=== PATIENT | female | born 1940 | race Caucasian/White ===

== ENCOUNTER 2020-08-28 12:20 | Inpatient (IN) | payer MEDICARE ==
[2020-08-28] MEDS ORDERED: ALBUTEROL HFA INHALER INHALATION PRN (12:43)
[2020-08-28] MEDS ORDERED: ALBUTEROL HFA INHALER INHALATION STA (12:43)
--- NOTE | 2020-08-28 12:54 | ED ---
General Adult HPI - General Chief complaint: Shortness of Breath Stated complaint: covid Time Seen by Provider: 08/28/20 12:22 Source: patient, EMS, RN notes reviewed Mode of arrival: EMS Limitations: altered mental status - History of Present Illness Initial comments: Patient is a pleasant 80-year-old female presenting to the emergency department with concerns for hypoxia. Patient was from longterm with oxygen saturation in the upper 70s. Patient was recently diagnosed with COVID-19 and recently discharged from a different facility. Patient is a poor historian and offers very little history. Patient does admit to cough and shortness of breath. - Related Data Allergies Allergy/AdvReac Type Severity Reaction Status Date / Time clopidogrel [From Plavix] Allergy Unknown Verified 08/28/20 12:31 hydrocodone Allergy Unknown Verified 08/28/20 12:31 Review of Systems ROS Statement: Those systems with pertinent positive or pertinent negative responses have been documented in the HPI. ROS Other: All systems not noted in ROS Statement are negative. Constitutional: Reports: chills Eyes: Denies: eye pain ENT: Denies: ear pain Respiratory: Reports: cough, dyspnea Cardiovascular: Denies: chest pain Endocrine: Reports: fatigue Gastrointestinal: Denies: abdominal pain Genitourinary: Denies: dysuria Musculoskeletal: Denies: back pain Skin: Denies: rash Neurological: Denies: headache Past Medical History Past Medical History: Unable to Obtain, Respiratory Disorder Additional Past Medical History / Comment(s): Left wrist Fx, Covid positive, History of Any Multi-Drug Resistant Organisms: Unobtainable Past Surgical History: Unable to Obtain Past Psychological History: Anxiety, Depression Past Alcohol Use History: Unable to Obtain Past Drug Use History: Unable to Obtain General Exam Limitations: altered mental status General appearance: alert, in no apparent distress Head exam: Present: normocephalic Eye exam: Present: normal appearance ENT exam: Present: normal oropharynx Neck exam: Present: normal inspection Respiratory exam: Present: normal lung sounds bilaterally Cardiovascular Exam: Present: regular rate, normal rhythm GI/Abdominal exam: Present: soft. Absent: tenderness Extremities exam: Present: normal inspection. Absent: pedal edema, calf tenderness Neurological exam: Present: alert Psychiatric exam: Present: normal affect, normal mood Skin exam: Present: normal color Course Vital Signs 08/28/20 08/28/20 08/28/20 12:22 13:24 14:43 Temperature 97.0 F L Pulse Rate 73 98 Respiratory 18 20 18 Rate Blood Pressure 137/97 142/96 O2 Sat by Pulse 92 L 97 Oximetry EKG Findings - EKG Comments: EKG Findings:: Size tachycardia with rate of 108. KS 118. QRS 94. QT 334. QTC 447. Left axis. Incomplete right bundle-branch block. No acute ST change. Medical Decision Making - Medical Decision Making Patient reevaluated. Patient updated. Case discussed with Dr. Morataya, who will admit covering for Dr. Delgado. Recent discharge summary from [facility] shows patient was recently there with mental status changes and evaluated for that. Patient was tested for COVID-19 positive prior to admission however did not appear to have respiratory compromise during hospitalization. - Lab Data Result diagrams: 08/28/20 12:47 08/28/20 12:47 Lab Results 08/28/20 08/28/20 08/28/20 Range/Units 12:47 12:47 12:47 WBC 19.7 H (3.8-10.6) k/uL RBC 4.49 (3.80-5.40) m/uL Hgb 14.7 (11.4-16.0) gm/dL Hct 43.5 (34.0-46.0) % MCV 96.9 (80.0-100.0) fL MCH 32.7 (25.0-35.0) pg MCHC 33.7 (31.0-37.0) g/dL RDW 12.4 (11.5-15.5) % Plt Count 388 (150-450) k/uL MPV 8.6 Neutrophils % 89 % Lymphocytes % 5 % Monocytes % 4 % Eosinophils % 0 % Basophils % 1 % Neutrophils # 17.4 H (1.3-7.7) k/uL Lymphocytes # 1.0 (1.0-4.8) k/uL Monocytes # 0.8 (0-1.0) k/uL Eosinophils # 0.1 (0-0.7) k/uL Basophils # 0.1 (0-0.2) k/uL PT 10.9 (9.0-12.0) sec INR 1.0 (<1.2) APTT 19.2 L (22.0-30.0) sec D-Dimer 1.43 H (<0.60) mg/L FEU Sodium 148 H (137-145) mmol/L Potassium 4.7 (3.5-5.1) mmol/L Chloride 115 H (98-107) mmol/L Carbon Dioxide 22 (22-30) mmol/L Anion Gap 11 mmol/L BUN 49 H (7-17) mg/dL Creatinine 1.38 H (0.52-1.04) mg/dL Est GFR (CKD-EPI)AfAm 41 (>60 ml/min/1.73 sqM) Est GFR (CKD-EPI)NonAf 36 (>60 ml/min/1.73 sqM) Glucose 142 H (74-99) mg/dL Plasma Lactic Acid Michael (0.7-2.0) mmol/L Calcium 9.9 (8.4-10.2) mg/dL Magnesium 2.0 (1.6-2.3) mg/dL Total Bilirubin 0.6 (0.2-1.3) mg/dL AST 34 (14-36) U/L ALT 40 H (4-34) U/L Alkaline Phosphatase 67 (38-126) U/L Lactate Dehydrogenase 1145 H (313-618) U/L C-Reactive Protein 6.4 H (<1.0) mg/dL Total Protein 6.7 (6.3-8.2) g/dL Albumin 3.3 L (3.5-5.0) g/dL Coronavirus (PCR) (Not Detectd) 08/28/20 08/28/20 Range/Units 12:47 12:47 WBC (3.8-10.6) k/uL RBC (3.80-5.40) m/uL Hgb (11.4-16.0) gm/dL Hct (34.0-46.0) % MCV (80.0-100.0) fL MCH (25.0-35.0) pg MCHC (31.0-37.0) g/dL RDW (11.5-15.5) % Plt Count (150-450) k/uL MPV Neutrophils % % Lymphocytes % % Monocytes % % Eosinophils % % Basophils % % Neutrophils # (1.3-7.7) k/uL Lymphocytes # (1.0-4.8) k/uL Monocytes # (0-1.0) k/uL Eosinophils # (0-0.7) k/uL Basophils # (0-0.2) k/uL PT (9.0-12.0) sec INR (<1.2) APTT (22.0-30.0) sec D-Dimer (<0.60) mg/L FEU Sodium (137-145) mmol/L Potassium (3.5-5.1) mmol/L Chloride (98-107) mmol/L Carbon Dioxide (22-30) mmol/L Anion Gap mmol/L BUN (7-17) mg/dL Creatinine (0.52-1.04) mg/dL Est GFR (CKD-EPI)AfAm (>60 ml/min/1.73 sqM) Est GFR (CKD-EPI)NonAf (>60 ml/min/1.73 sqM) Glucose (74-99) mg/dL Plasma Lactic Acid Michael 3.3 H* (0.7-2.0) mmol/L Calcium (8.4-10.2) mg/dL Magnesium (1.6-2.3) mg/dL Total Bilirubin (0.2-1.3) mg/dL AST (14-36) U/L ALT (4-34) U/L Alkaline Phosphatase (38-126) U/L Lactate Dehydrogenase (313-618) U/L C-Reactive Protein (<1.0) mg/dL Total Protein (6.3-8.2) g/dL Albumin (3.5-5.0) g/dL Coronavirus (PCR) Detected A (Not Detectd) - Radiology Data Radiology results: report reviewed (Computed tomography scan negative for pulmonary embolism. There is evidence of fibrosis and interstitial changes diffusely), image reviewed (Chest x-ray shows diffuse interstitial changes) Disposition Clinical Impression: COVID-19, Pneumonia Disposition: ADMITTED IP TO THIS HOSP Condition: Serious Is patient prescribed a controlled substance at d/c from ED?: No Referrals: Lake Delgado MD [Primary Care Provider] - 1-2 days Decision Time: 14:48
[2020-08-28 13:06] LABS: Basophils # (A) 0.1 k/uL (0-0.2); Basophils % (A) 1 %; Eosinophils # (A) 0.1 k/uL (0-0.7); Eosinophils % (A) 0 %; HCT 43.5 % (34.0-46.0); HGB 14.7 gm/dL (11.4-16.0); Lymphocytes % (A) 5 %; MCH 32.7 pg (25.0-35.0); MCHC 33.7 g/dL (31.0-37.0); MCV 96.9 fL (80.0-100.0); Mean Platelet Volume 8.6; Monocytes # (A) 0.8 k/uL (0-1.0); Monocytes % (A) 4 %; Neutrophils # (A) 17.4 k/uL (1.3-7.7); Neutrophils % (A) 89 %; Platelet Count 388 k/uL (150-450); RBC 4.49 m/uL (3.80-5.40); RDW 12.4 % (11.5-15.5); WBC 19.7 k/uL (3.8-10.6)
[2020-08-28 13:20] LABS: Albumin 3.3 g/dL (3.5-5.0); C Reactive Protein 6.4 mg/dL (<1.0); Calcium 9.9 mg/dL (8.4-10.2); Potassium 4.7 mmol/L (3.5-5.1); Total Bilirubin 0.6 mg/dL (0.2-1.3); Total Protein 6.7 g/dL (6.3-8.2)
[2020-08-28 13:31] LABS: Prothrombin Time 10.9 sec (9.0-12.0)
--- NOTE | 2020-08-28 13:31 | XR ---
EXAMINATION TYPE: XR chest 1V portable DATE OF EXAM: 08/28/2020 COMPARISON: NONE HISTORY: Suspected Covid pneumonia TECHNIQUE: Single frontal view of the chest is obtained. FINDINGS: There is a lead over the spinal canal region which may be related to cord stimulation. Pos top changes are noted to the right humerus. Bilateral airspace disease is present. There is no eviden t pneumothorax or pleural effusion. Cardiac style silhouette is within normal limits. Aorta is dense. IMPRESSION: Correlate for possible Covid pneumonia.
[2020-08-28 13:34] LABS: Partial Thromboplastin Time 19.2 sec (22.0-30.0)
[2020-08-28 13:37] LABS: D-Dimer 1.43 mg/L FEU (<0.60)
[2020-08-28] MEDS ORDERED: SODIUM CHLORIDE 0.9% 1,000 ML IV STA (13:44)
--- NOTE | 2020-08-28 14:43 | CT ---
EXAMINATION TYPE: CT angio chest DATE OF EXAM: 08/28/2020 COMPARISON: None HISTORY: SOB, +covid CT DLP: 306.5 mGycm Automated exposure control for dose reduction was used. CONTRAST: Performed with IV Contrast, patient injected with 95cc mL of Isovue 370. There are 3-D post processed images. There is extensive groundglass patchy interstitial infiltrate in both lungs. Heart size is normal. Th ere is no pericardial effusion. There is some reticular interstitial density also in both lungs consi stent with pre-existing pulmonary fibrosis. There is no mediastinal adenopathy. There are no hilar ma sses. Thoracic aorta is atheromatous. I see no evidence of filling defect in the pulmonary arteries. There is no aortic aneurysm or dissection. The ascending aorta measures 3.5 cm. Thoracic spine is intact. There is no compression fracture. Sternum is intact. The ribs appear intact . IMPRESSION: No evidence of pulmonary embolism. Extensive pulmonary interstitial infiltrates consistent with pneum onia and pulmonary fibrosis. Normal heart.
[2020-08-28] MEDS ORDERED: AZITHROMYCIN 500 MG in SODIUM CHLORIDE 0.9% 250 ML IVPB STA (14:49)
[2020-08-28] MEDS ORDERED: PNEUMONIA PROTOCOL UTILIZED 1 EACH MISC PO PRN (14:49)
[2020-08-28] MEDS ORDERED: PIPERACILLIN-TAZOBACTAM 3.375 GM in SODIUM CHLORIDE 0.9% 100 ML IVPB STA (14:49)
[2020-08-28] MEDS ORDERED: IPRATROPIUM-ALBUTEROL 3 ML NEB INHALATION PRN (14:49)
[2020-08-28] MEDS: CHOLECALCIFEROL 25 MCG (1000 IU) TABLET PO SCH (17:36)
[2020-08-28] MEDS: ZINC SULFATE 220 MG CAP PO SCH (17:36)
[2020-08-28] MEDS: DEXAMETHASONE SOD PHOSPHATE 10 MG/ML 1 ML VIAL IV SCH (17:36)
[2020-08-28] MEDS: ENOXAPARIN 30 MG/0.3 ML SYRINGE SQ SCH (17:36)
[2020-08-28 19:33] LABS: Ferritin 882.4 ng/mL (10.0-291.0)
[2020-08-28] MEDS ORDERED: ALBUTEROL HFA INHALER INHALATION SCH (20:00)
--- NOTE | 2020-08-28 22:52 | HP ---
HISTORY AND PHYSICAL DATE OF SERVICE: 08/28/2020. CHIEF COMPLAINT: Shortness of breath and hypoxia. HISTORY OF PRESENT ILLNESS: This 80-year-old woman with a past medical history of multiple medical problems including GERD, hypertension, hyperlipidemia, anxiety, depression, being followed by Dr. Yepez in [facility] in the outpatient setting was apparently had a recent left wrist fracture. The patient was hospitalized recently and the patient was found to have Covid positive on 08/19/2020. The patient presented with shortness of breath, increased hypoxia with pulse ox 70 and the patient taken to [facility], admitted for further evaluation and treatment. In the ER, the patient had elevated D- dimer and CT angio showed no evidence of pulmonary embolism, but bilateral extensive parenchymal involvement, very typical of Covid 19. Sodium is 128 and BUN was 130. Lactic acid also elevated. Albumin is also 3.3. There is no history of fever, rigors or chills. No history of headache, loss of consciousness, seizures at this time. PAST MEDICAL HISTORY: GERD, hypertension, hyperlipidemia, left wrist fracture. MEDICATIONS: Medications prior to admission, home medications are: Ultram, Seroquel, doxycycline, dexamethasone, Protonix, folic acid, vitamin B12. ALLERGIES: PLAVIX AND HYDROCODONE. FAMILY HISTORY: Family history unable to obtain. SOCIAL HISTORY: Cannot be obtained. REVIEW OF SYSTEMS: Could not be taken, the patient is confused. PHYSICAL EXAMINATION: Pulse is 101. Blood pressure 120/79, respirations 18, temperature 97.2, pulse ox 98% on 6 L. HEENT: Conjunctivae normal. Oral mucosa moist. NECK is no jugular venous distention. No carotid bruit. CARDIOVASCULAR SYSTEM: S1, S2 muffled. RESPIRATION: Breath sounds diminished in the bases. A few scattered rhonchi. ABDOMEN: Soft, nontender. No mass. NERVOUS SYSTEM: Higher functions as mentioned. Moves all four limbs. No focal motor or sensory deficits. LYMPHATICS: No lymph nodes palpable in the neck, axillae or groin. SKIN: No ulcers, rashes and no bleeding. JOINTS: No active deforming arthropathy. LAB STUDIES: WBC 19.7. D-dimer is 1.4. Sodium 148, creatinine is 1.38. ASSESSMENT: 1. Acute COVID-19 infection with acute COVID-19 bilateral interstitial pneumonia with acute hypoxic respiratory failure. 2. Change in mental status, acute on chronic metabolic encephalopathy. 3. Hyponatremia. 4. History of recent left wrist fracture. 5. Increased creatinine with possibly acute kidney failure, acute tubular necrosis. 6. Possible sepsis, present on admission, with elevated plasma lactic acid. 7. Elevated LDH. 8. Elevated inflammatory markers of Covid-19. 9. Elevated D-dimer without any evidence of pulmonary embolism. 10.Increased WBC. 11.Gastroesophageal reflux disease. 12.Hypertension. 13.Hyperlipidemia. 14.History of anxiety, depression. RECOMMENDATIONS AND DISCUSSION: In this 80-year-old woman who presented with multiple complex medical issues, we will monitor the patient closely, continue the current medications, management and symptomatic treatment. I recommend bronchodilators and as well as initiate Lovenox, dexamethasone, zinc, usual medications, broad-spectrum empiric antibiotics. Consult with Orthopedic surgery and Dr. Sapp. Prognosis guarded because of multiple complex medical issues. Further recommendations to follow. Resume the home medications. A copy of this dictation being forwarded to Dr. Yepez is the primary physician. MMODL / IJN: [id number] /
[2020-08-28] MEDS: traMADol 50 MG TAB PO PRN (23:04)
[2020-08-28] MEDS: ASCORBIC ACID 500 MG TAB PO SCH (23:04)
[2020-08-28] MEDS: PIPERACILLIN-TAZOBACTAM 3.375 GM in SODIUM CHLORIDE 0.9% 100 ML IVPB SCH (23:05)
[2020-08-28] MEDS: QUEtiapine 25 MG TAB PO SCH (23:06)
[2020-08-29 05:27] LABS: Appearance,Urine Turbid (Clear); Bilirubin,Urine Negative (Negative); Blood,Urine Trace (Negative); Color,Urine Yellow; Glucose,Urine (UA) Negative (Negative); Ketones,Urine Negative (Negative); Leukocyte Esterase,Urine Negative (Negative); Mucus,Urine Rare /hpf; Nitrite,Urine Negative (Negative); PH, Urine 5.5 (5.0-8.0); Protein,Urine Trace (Negative); RBC,Urine 11 /hpf (0-5); Triple Phosphate Crystal,Urine Many /hpf; Urobilinogen,Urine <2.0 mg/dL (<2.0); WBC,Urine 2 /hpf (0-5)
[2020-08-29 06:22] LABS: Specific Gravity,Urine >1.050 (1.001-1.035)
[2020-08-29] MEDS: PIPERACILLIN-TAZOBACTAM 3.375 GM in SODIUM CHLORIDE 0.9% 100 ML IVPB SCH ×2 (06:22→14:05)
[2020-08-29] MEDS: ZINC SULFATE 220 MG CAP PO SCH (07:47)
[2020-08-29] MEDS: ASCORBIC ACID 500 MG TAB PO SCH (07:47)
[2020-08-29] MEDS: CHOLECALCIFEROL 25 MCG (1000 IU) TABLET PO SCH (07:47)
--- NOTE | 2020-08-29 07:47 | XR ---
EXAMINATION TYPE: XR chest 1V DATE OF EXAM: 08/29/2020 COMPARISON: Prior chest x-ray 08/28/2020 HISTORY: Pneumonia TECHNIQUE: Single frontal view of the chest is obtained. FINDINGS: Bilateral airspace disease is again noted. Instrumentation is stable. Aorta is dense. Card iac mediastinal silhouette is unchanged. There is no evident pneumothorax or pleural effusion. IMPRESSION: Findings consistent with patient's history of pneumonia.
[2020-08-29] MEDS: CYANOCOBALAMIN 500 MCG TAB PO SCH (07:48)
[2020-08-29] MEDS: DEXAMETHASONE SOD PHOSPHATE 10 MG/ML 1 ML VIAL IV SCH (07:48)
[2020-08-29] MEDS: FOLIC ACID 1 MG TAB PO SCH (07:48)
[2020-08-29] MEDS: PANTOPRAZOLE 40 MG TABLET PO SCH (07:48)
[2020-08-29] MEDS: ENOXAPARIN 30 MG/0.3 ML SYRINGE SQ SCH (07:48)
[2020-08-29] MEDS: ALBUTEROL HFA INHALER INHALATION SCH ×3 (08:32→20:25)
[2020-08-29 10:10] LABS: Basophils # (A) 0.08 X 10*3/uL (0.00-0.10); Basophils % (A) 0.7 %; Eosinophils # (A) 0 X 10*3/uL (0.04-0.35); Eosinophils % (A) 0 %; HCT 40.8 % (37.2-46.3); HGB 12.8 g/dL (12.0-15.0); Lymphocytes # (A) 1.08 X 10*3/uL (0.90-5.00); Lymphocytes % (A) 9.7 %; MCH 31.7 pg (27.0-32.0); MCHC 31.4 g/dL (32.0-37.0); Mean Platelet Volume 11.5 fL (9.5-12.2); Monocytes # (A) 0.52 X 10*3/uL (0.20-1.00); Monocytes % (A) 4.7 %; Neutrophils # (A) 8.91 X 10*3/uL (1.80-7.70); Neutrophils % (A) 80.1 %; Platelet Count 292 X 10*3/uL (140-440); RBC 4.04 X 10*6/uL (4.10-5.20); RDW 13.5 % (11.5-14.5); WBC 11.12 X 10*3/uL (4.50-10.00)
[2020-08-29 11:28] LABS: African American GFR (CKD) 40.7 (60.0-200.0); Anion Gap 9.1 mmol/L (4.00-12.00); Carbon Dioxide 18.9 mmol/L (21.6-31.8); Non-African American GFR(CKD) 35.1 (60.0-200.0); Potassium 4.9 mmol/L (3.5-5.5)
--- NOTE | 2020-08-29 11:33 | P.CNPUL ---
History of Present Illness Consult date: 08/29/20 Requesting physician: Tess Morataya Reason for consult: hypoxemia Chief complaint: Altered mental status, hypoxemia History of present illness: This is a 80-year-old female patient who recently had two hospitalizations initially at [facility] and was positive for CoVID 19 08/19/2020. She is subsequently discharged home and sustained a fall and was taken to [facility]. She did have a left wrist fracture. She subsequently was discharged from there to [facility] for rehabilitation. She was brought in here to the emergency room yesterday with altered mental status and hypoxemia with oxygen saturations in the 70s. is a very poor historian no information is able to be obtained from her. CT angiogram revealed no evidence of pulmonary embolism. There is extensive pulmonary interstitial infiltrates consider with pneumonia, pulmonary fibrosis. She does have a history of being a heavy smoker and prior to her initial hospitalization at [facility] she was alert and oriented 3 according to family members per nursing staff. Today's chest x- ray shows bilateral airspace disease. Urine culture pending. White count 11.1. Hemoglobin 12.8. D-dimer 1.43. Sodium 148. Potassium 4.7. Creatinine 1.38. Initial lactic acid 3.1 and currently 1.4. Ferritin 82. LDH 1145. C-reactive protein 6.4. Pro-calcitonin 0.20. Jones virus by PCR detected. She was initially requiring nonrebreather mask but maintaining O2 saturations in the 90s. She's currently on 4 L with O2 saturation of 99%. She is resting in bed. She is unable to answer any questions. She is arousable but drowsy and her speech is garbled. She's been initiated on Zosyn and azithromycin. Lovenox for DVT prophylaxis. Decadron and vitamin supplements. Current fluids at 20 ML's per hour. Review of Systems ROS unobtainable: due to mental status Past Medical History Past Medical History: Unable to Obtain, GERD/Reflux, Hyperlipidemia, Hypertension, Respiratory Disorder Additional Past Medical History / Comment(s): Left wrist Fx, Covid positive, History of Any Multi-Drug Resistant Organisms: Unobtainable Past Surgical History: Unable to Obtain Past Psychological History: Anxiety, Depression Smoking Status: Unknown if ever smoked Past Alcohol Use History: Unable to Obtain Past Drug Use History: Unable to Obtain Medications and Allergies Home Medications Medication Instructions Recorded Confirmed Type Cyanocobalamin (Vitamin B-12) 1,000 mcg PO DAILY 08/28/20 08/28/20 History [Vitamin B-12] Doxycycline Hyclate [Vibramycin] 100 mg PO BID 08/28/20 08/28/20 History Folic Acid 1 mg PO DAILY 08/28/20 08/28/20 History Pantoprazole Sodium [Protonix] 40 mg PO DAILY 08/28/20 08/28/20 History QUEtiapine FUMARATE 25 mg PO HS 08/28/20 08/28/20 History dexAMETHasone [Dexamethasone] 6 mg PO DAILY 08/28/20 08/28/20 History traMADol HCL 50 mg PO Q8H PRN 08/28/20 08/28/20 History Allergies Allergy/AdvReac Type Severity Reaction Status Date / Time clopidogrel [From Plavix] Allergy Unknown Verified 08/28/20 15:53 hydrocodone Allergy Unknown Verified 08/28/20 15:53 Physical Exam Vitals: Vital Signs Temp Pulse Pulse Resp BP BP Pulse Ox 08/29/20 08:33 99 08/29/20 07:00 97.3 F L 78 16 122/80 99 08/29/20 01:55 96.5 F L 79 15 112/70 97 08/28/20 20:14 95 08/28/20 20:00 18 08/28/20 19:29 97.4 F L 91 16 142/83 95 08/28/20 17:37 97.5 F L 97 14 124/70 94 L 08/28/20 16:26 93 18 141/84 93 L 08/28/20 15:00 101 H 18 129/79 90 L 08/28/20 14:43 98 18 142/96 97 08/28/20 13:24 20 08/28/20 12:22 97.0 F L 73 18 137/97 92 L Intake and Output 08/28/20 08/29/20 08/29/20 22:59 06:59 14:59 Intake Total 990 Output Total 401 401 Balance 589 -401 Intake: Intake, IV Titration 990 Amount Piperacillin-Tazobactam 3 200 .375 gm In Sodium Chloride 0.9% 100 ml @ 200 mls/hr IVPB ONCE STA Rx#:[id number] Sodium Chloride 0.9% 1, 790 000 ml @ 75 mls/hr IV . [id number] STA Rx#:[id number] Output: Urine 400 400 Stool 1 1 Other: Voiding Method Indwelling Catheter # Bowel Movements 1 Weight 49.895 kg GENERAL EXAM: Arousable, frail, lethargic 80-year-old female, on 4 L nasal cannula, appears comfortable in no apparent distress. HEAD: Normocephalic. EYES: Normal reaction of pupils, equal size. NOSE: Clear with pink turbinates. THROAT: No erythema or exudates. NECK: No masses, no JVD. CHEST: No chest wall deformity. LUNGS: Equal air entry with crackles in the bilateral posterior bases. CVS: S1 and S2 normal with no audible murmur, regular rhythm. ABDOMEN: No hepatosplenomegaly, normal bowel sounds, no guarding or rigidity. SPINE: No scoliosis or deformity SKIN: No rashes CENTRAL NERVOUS SYSTEM: No focal deficits, tone is normal in all 4 extremities. EXTREMITIES: There is no peripheral edema. No clubbing, no cyanosis. Peripheral pulses are intact. Results - Laboratory Findings CBC and BMP: 08/29/20 05:28 08/28/20 12:47 PT/INR, D-dimer PT 10.9 sec (9.0-12.0) 08/28/20 12:47 INR 1.0 (<1.2) 08/28/20 12:47 D-Dimer 1.43 mg/L FEU (<0.60) H 08/28/20 12:47 Abnormal lab findings: Abnormal Labs 08/28/20 08/28/20 08/28/20 12:47 12:47 12:47 WBC 19.7 H RBC MCV MCHC Immature Gran # Neutrophils # 17.4 H Eosinophils # APTT 19.2 L D-Dimer 1.43 H Sodium 148 H Chloride 115 H BUN 49 H Creatinine 1.38 H Glucose 142 H Plasma Lactic Acid Michael Ferritin 882.4 H ALT 40 H Lactate Dehydrogenase 1145 H C-Reactive Protein 6.4 H Albumin 3.3 L Procalcitonin Urine Appearance Ur Specific Belcher Urine Protein Urine Blood Urine RBC Triple Phos Crystals Urine Mucus Coronavirus (PCR) 08/28/20 08/28/20 08/28/20 12:47 12:47 12:47 WBC RBC MCV MCHC Immature Gran # Neutrophils # Eosinophils # APTT D-Dimer Sodium Chloride BUN Creatinine Glucose Plasma Lactic Acid Michael 3.3 H* Ferritin ALT Lactate Dehydrogenase C-Reactive Protein Albumin Procalcitonin 0.20 H Urine Appearance Ur Specific Belcher Urine Protein Urine Blood Urine RBC Triple Phos Crystals Urine Mucus Coronavirus (PCR) Detected A 08/28/20 08/28/20 08/29/20 16:32 20:03 04:30 WBC RBC MCV MCHC Immature Gran # Neutrophils # Eosinophils # APTT D-Dimer Sodium Chloride BUN Creatinine Glucose Plasma Lactic Acid Michael 2.2 H* 3.1 H* Ferritin ALT Lactate Dehydrogenase C-Reactive Protein Albumin Procalcitonin Urine Appearance Turbid H Ur Specific Belcher >1.050 H Urine Protein Trace H Urine Blood Trace H Urine RBC 11 H Triple Phos Crystals Many H Urine Mucus Rare H Coronavirus (PCR) 08/29/20 05:28 WBC 11.12 H RBC 4.04 L MCV 101.0 H MCHC 31.4 L Immature Gran # 0.53 H Neutrophils # 8.91 H Eosinophils # 0 L APTT D-Dimer Sodium Chloride BUN Creatinine Glucose Plasma Lactic Acid Michael Ferritin ALT Lactate Dehydrogenase C-Reactive Protein Albumin Procalcitonin Urine Appearance Ur Specific Belcher Urine Protein Urine Blood Urine RBC Triple Phos Crystals Urine Mucus Coronavirus (PCR) - Diagnostic Findings Chest x-ray: image reviewed CT scan - chest: image reviewed Assessment and Plan Assessment: 1 Acute hypoxemic respiratory failure secondary to COVID-19 pneumonia. Unsure of the date the initial diagnosis. 2 Recent admissions to both [facility] and [facility], discharged to [facility] 3 Recent fall with fracture of the left arm/wrist 4 Altered mental status 5 Acute renal failure 6 Elevated inflammatory markers secondary to COVID-19 infection 7 Possible urinary tract infection, culture pending 8 Lactic acidosis, improved Plan: The patient was seen and evaluated by Dr. Sapp Chest x-ray, CAT scan, labs reviewed Increase fluids 0.9 normal saline at 100 ML's per hour Recheck pro-calcitonin Continue antibiotics for now Continue Lovenox, Decadron, vitamin supplements Titrate the FiO2 as tolerated DO NOT RESUSCITATE/DO NOT INTUBATE CODE STATUS Prognosis is guarded We will continue to follow and make further recommendations based on her clinical status I, the cosigning physician, performed a history & physical examination of the patient. Lungs sounds with crackles in the bilateral posterior bases. Maintaining good O2 saturations in the 90s on 4 L/m per nasal cannula. I discussed the assessment and plan of care with my nurse practitioner, Genie Macias. I attest to the above consultation as dictated by her. Time with Patient: Greater than 30
[2020-08-29] MEDS: AZITHROMYCIN 500 MG in SODIUM CHLORIDE 0.9% 250 ML IVPB SCH (11:57)
[2020-08-29] MEDS ORDERED: BENZOCAINE SPRAY 1 CAN MUCOUS MEM PRN (15:00)
[2020-08-29] MEDS: DEXTROSE 5% IN WATER 1,000 ML IV SCH (15:30)
--- NOTE | 2020-08-29 15:39 | XR ---
EXAMINATION TYPE: XR wrist complete LT DATE OF EXAM: 08/29/2020 COMPARISON: NONE HISTORY: Wrist fracture. Pain. TECHNIQUE: 3 views FINDINGS: Exam performed through the cast. There is impacted transverse fracture distal radial metaph ysis. There is slight anterior angulation at the fracture site. There is also slightly angulated dist al ulna fracture. The carpal bones appear intact. There is osteopenia. IMPRESSION: Slightly angulated fractures of the radius and ulna. Detail limited by the cast.
--- NOTE | 2020-08-29 17:37 | PN ---
PROGRESS NOTE DATE OF SERVICE: 08/29/2020 This 80-year-old woman who was admitted with acute Covid 19 infection, bilateral pneumonia also had significant hypoxia. The patient pneumonia. The patient started on broad-spectrum IV antibiotics. Patient also had change in mental status. The patient also had dehydration, hyponatremia, also. PAST MEDICAL HISTORY: Reviewed. REVIEW OF SYSTEMS: Could not be taken. The patient is confused. CURRENT MEDICATIONS: Reviewed and include: Ventolin, vitamin C, Zithromax, Dexamethasone. Doses reviewed. PHYSICAL EXAM: Patient is arousable, stuporous. Pulse 78, blood pressure 120/80, respiratory rate 16, temperature 97.3. Pulse ox 99% on 15 L nasal cannula. HEENT: Conjunctivae normal. NECK: No JVD. CARDIOVASCULAR: S1, S2 muffled. RESPIRATORY: Breath sounds diminished in the bases. A few scattered rhonchi and crackles. ABDOMEN: Soft, nontender. LEGS are no edema. No swelling. NERVOUS SYSTEM: No focal deficits. LABS: At this time show: WBC 7, hemoglobin 12.3, sodium 151 and potassium 4.9. ASSESSMENT: 1. Acute COVID-19 infection with acute Covid 19 bilateral interstitial pneumonia with acute hypoxic respiratory failure. 2. Change in mental status, acute on chronic metabolic encephalopathy. 3. Hypernatremia. 4. History of recent left wrist fracture. 5. Increased creatinine with possible acute kidney injury acute tubular necrosis with dehydration. 6. Possible sepsis, present on admission with elevated plasma lactic acid as well as possible super added bacterial pneumonia. 7. Elevated LDH. 8. Elevated inflammatory markers of Covid 19. 9. Elevated D-dimer without any evidence of acute pulmonary embolism. 10.Increased WBC. 11.History of gastroesophageal reflux disease. 12.Hypertension. 13.Hyperlipidemia. 14.History of anxiety, depression. 15.NO CODE, NO CPR, NO VENT. RECOMMENDATIONS AND DISCUSSION: Continue current medications, management and symptomatic treatment. Continue with broad-spectrum IV antibiotics. I would also recommend venous ultrasound of the legs. Continue the rest of medications. DVT prophylaxis. Closely follow with Dr. Sapp. Prognosis extremely guarded because of multiple complex medical issues. Further recommendations to follow. Discussed with multiple members of the family. MMODL / IJN: [id number] / [facility] SYSTEMVamsi
--- NOTE | 2020-08-29 19:55 | P.CNOR ---
History of Present Illness - [facility] Consult date: 08/29/20 Consult reason: fracture History of present illness: This is an 80-year-old female who presented complaining of syncope and fall she recently was seen an Ralph Woodward for her left wrist which was reduced and rogelio arently has a wrist fracture shes currently in a splint. She is unreliable for history as she is unable to provide this however she is following commands at this time. She denies any pain. Review of Systems 14 point ROS completed and as stated in HPI. All other systems reviewed negative. Difficult to obtain ROS due to pt mental status. Constitutional: Reports as per HPI Past Medical History Past Medical History: Unable to Obtain, GERD/Reflux, Hyperlipidemia, Hypertension, Respiratory Disorder Additional Past Medical History / Comment(s): Left wrist Fx, Covid positive, History of Any Multi-Drug Resistant Organisms: Unobtainable Past Surgical History: Unable to Obtain Past Psychological History: Anxiety, Depression Smoking Status: Unknown if ever smoked Past Alcohol Use History: Unable to Obtain Past Drug Use History: Unable to Obtain Medications and Allergies Home Medications Medication Instructions Recorded Confirmed Type Cyanocobalamin (Vitamin B-12) 1,000 mcg PO DAILY 08/28/20 08/28/20 History [Vitamin B-12] Doxycycline Hyclate [Vibramycin] 100 mg PO BID 08/28/20 08/28/20 History Folic Acid 1 mg PO DAILY 08/28/20 08/28/20 History Pantoprazole Sodium [Protonix] 40 mg PO DAILY 08/28/20 08/28/20 History QUEtiapine FUMARATE 25 mg PO HS 08/28/20 08/28/20 History dexAMETHasone [Dexamethasone] 6 mg PO DAILY 08/28/20 08/28/20 History traMADol HCL 50 mg PO Q8H PRN 08/28/20 08/28/20 History Allergies Allergy/AdvReac Type Severity Reaction Status Date / Time clopidogrel [From Plavix] Allergy Unknown Verified 08/28/20 15:53 hydrocodone Allergy Unknown Verified 08/28/20 15:53 Physical Examination Osteopathic Statement: *. No significant issues noted on an osteopathic structural exam other than those noted in the History and Physical/Consult. AOX1-2, NAD. Nods head yes and says no. Answers questions appropriately. CTAB RRR LUE: Splint in place, molded. Brusing about the hand on the L. Minimal swelling noted. Brusing noted on all 4 ext as well as skin tears and minor abrasions. Able to wiggle all fingers w/o any issues. SILT C5-T1 Cap refill brisk <2 sec all fingers Compartments soft +motor med/rad/ulnar nerves + motor b/l LE all major muscle groups Remainding joints and extremetiesl Upper and lower w/o pain on passive ROM or palpation at this time. Results Left wrist films obtained show a displaced, radially deviated, dorsally displaced comminuted distal radius and ulnar fracture. The fracture is in a splint, but is malreduced at this time. There are no other bony abnormalities visualized at this time. - Labs Labs: Abnormal Lab Results - Last 24 Hours (Table) 08/28/20 08/28/20 08/28/20 Range/Units 12:47 12:47 12:47 WBC (4.50-10.00) X 10*3/uL RBC (4.10-5.20) X 10*6/uL MCV (80.0-97.0) fL MCHC (32.0-37.0) g/dL Immature Gran # (0.00-0.04) X 10*3/uL Neutrophils # (1.80-7.70) X 10*3/uL Eosinophils # (0.04-0.35) X 10*3/uL APTT 19.2 L (22.0-30.0) sec D-Dimer 1.43 H (<0.60) mg/L FEU Sodium 148 H (137-145) mmol/L Chloride 115 H (98-107) mmol/L Carbon Dioxide (21.6-31.8) mmol/L BUN 49 H (7-17) mg/dL Creatinine 1.38 H (0.52-1.04) mg/dL Est GFR (CKD-EPI)AfAm (60.0-200.0) Est GFR (CKD-EPI)NonAf (60.0-200.0) BUN/Creatinine Ratio (12.00-20.00) Ratio Glucose 142 H (74-99) mg/dL Plasma Lactic Acid Michael 3.3 H* (0.7-2.0) mmol/L Ferritin 882.4 H (10.0-291.0) ng/mL ALT 40 H (4-34) U/L Lactate Dehydrogenase 1145 H (313-618) U/L C-Reactive Protein 6.4 H (<1.0) mg/dL Albumin 3.3 L (3.5-5.0) g/dL Procalcitonin (0.02-0.09) ng/mL Urine Appearance (Clear) Ur Specific [place] (1.001-1.035) Urine Protein (Negative) Urine Blood (Negative) Urine RBC (0-5) /hpf Triple Phos Crystals (None) /hpf Urine Mucus (None) /hpf 08/28/20 08/28/20 08/28/20 Range/Units 12:47 16:32 20:03 WBC (4.50-10.00) X 10*3/uL RBC (4.10-5.20) X 10*6/uL MCV (80.0-97.0) fL MCHC (32.0-37.0) g/dL Immature Gran # (0.00-0.04) X 10*3/uL Neutrophils # (1.80-7.70) X 10*3/uL Eosinophils # (0.04-0.35) X 10*3/uL APTT (22.0-30.0) sec D-Dimer (<0.60) mg/L FEU Sodium (137-145) mmol/L Chloride (98-107) mmol/L Carbon Dioxide (21.6-31.8) mmol/L BUN (7-17) mg/dL Creatinine (0.52-1.04) mg/dL Est GFR (CKD-EPI)AfAm (60.0-200.0) Est GFR (CKD-EPI)NonAf (60.0-200.0) BUN/Creatinine Ratio (12.00-20.00) Ratio Glucose (74-99) mg/dL Plasma Lactic Acid Michael 2.2 H* 3.1 H* (0.7-2.0) mmol/L Ferritin (10.0-291.0) ng/mL ALT (4-34) U/L Lactate Dehydrogenase (313-618) U/L C-Reactive Protein (<1.0) mg/dL Albumin (3.5-5.0) g/dL Procalcitonin 0.20 H (0.02-0.09) ng/mL Urine Appearance (Clear) Ur Specific [place] (1.001-1.035) Urine Protein (Negative) Urine Blood (Negative) Urine RBC (0-5) /hpf Triple Phos Crystals (None) /hpf Urine Mucus (None) /hpf 08/29/20 08/29/20 08/29/20 Range/Units 04:30 05:28 05:28 WBC 11.12 H (4.50-10.00) X 10*3/uL RBC 4.04 L (4.10-5.20) X 10*6/uL MCV 101.0 H (80.0-97.0) fL MCHC 31.4 L (32.0-37.0) g/dL Immature Gran # 0.53 H (0.00-0.04) X 10*3/uL Neutrophils # 8.91 H (1.80-7.70) X 10*3/uL Eosinophils # 0 L (0.04-0.35) X 10*3/uL APTT (22.0-30.0) sec D-Dimer (<0.60) mg/L FEU Sodium 151 H (137-145) mmol/L Chloride 123 H (98-107) mmol/L Carbon Dioxide 18.9 L (21.6-31.8) mmol/L BUN 49.0 H (7-17) mg/dL Creatinine (0.52-1.04) mg/dL Est GFR (CKD-EPI)AfAm 40.7 L (60.0-200.0) Est GFR (CKD-EPI)NonAf 35.1 L (60.0-200.0) BUN/Creatinine Ratio 35.00 H (12.00-20.00) Ratio Glucose 139 H (74-99) mg/dL Plasma Lactic Acid Michael (0.7-2.0) mmol/L Ferritin (10.0-291.0) ng/mL ALT (4-34) U/L Lactate Dehydrogenase (313-618) U/L C-Reactive Protein (<1.0) mg/dL Albumin (3.5-5.0) g/dL Procalcitonin (0.02-0.09) ng/mL Urine Appearance Turbid H (Clear) Ur Specific [place] >1.050 H (1.001-1.035) Urine Protein Trace H (Negative) Urine Blood Trace H (Negative) Urine RBC 11 H (0-5) /hpf Triple Phos Crystals Many H (None) /hpf Urine Mucus Rare H (None) /hpf Microbiology - Last 24 Hours (Table) 08/29/20 04:30 Urine Culture - Preliminary Urine,Catheterized H & H 08/28/20 08/29/20 Range/Units 12:47 05:28 Hgb 14.7 12.8 (11.4-16.0) gm/dL Hct 43.5 40.8 (34.0-46.0) % Coagulation 08/28/20 Range/Units 12:47 INR 1.0 (<1.2) Result Diagrams: 08/29/20 05:28 08/29/20 05:28 Assessment and Plan Assessment: 80 yo female with complex medical history with displaced, comminuted, angulated distal radicus and ulna fracture on the L s/p multiple FFS. Plan: Attempt at family discussion. This fracture is surgical due to the continued displacement and angulation, however the patient is not reliable for history, has had multiple falls, lives in a care facility and has multiple medical comorbidities. Non surgical options may be a better route for her unless her mental status clears up and she is able to discuss surgical intervention or we can talk with family and see what their wishes are for her. While non operative may be ideal for her, the wrist is in unacceptable and non reduced alignment and she may benefit from a closed reduction and casting. We will discuss all options with the family or DPOA as soon as possible. In the meantime, maintain splint CDI, sling PRN, Ice and elevate for pain and swelling control. Medical management at this time.
[2020-08-30] MEDS: DEXTROSE 5% IN WATER 1,000 ML IV SCH ×3 (05:23→22:31)
[2020-08-30] MEDS: PIPERACILLIN-TAZOBACTAM 3.375 GM in SODIUM CHLORIDE 0.9% 100 ML IVPB SCH ×4 (05:32→19:44)
[2020-08-30 06:20] LABS: Basophils # (A) 0.1 k/uL (0-0.2); Basophils % (A) 0 %; Eosinophils # (A) 0.2 k/uL (0-0.7); Eosinophils % (A) 1 %; HCT 42.6 % (34.0-46.0); HGB 14.3 gm/dL (11.4-16.0); Lymphocytes # (A) 1.4 k/uL (1.0-4.8); Lymphocytes % (A) 9 %; MCH 33.3 pg (25.0-35.0); MCHC 33.6 g/dL (31.0-37.0); MCV 98.9 fL (80.0-100.0); Monocytes # (A) 0.7 k/uL (0-1.0); Monocytes % (A) 4 %; Neutrophils # (A) 14.1 k/uL (1.3-7.7); Neutrophils % (A) 85 %; Platelet Count 295 k/uL (150-450); RDW 12.6 % (11.5-15.5); WBC 16.7 k/uL (3.8-10.6)
[2020-08-30 06:31] LABS: ALT 49 U/L (4-34); African American GFR (CKD) 40 (>60 ml/min/1.73 sqM); Albumin 2.7 g/dL (3.5-5.0); Albumin/Globulin Ratio 0.8; Anion Gap 11 mmol/L; Blood Urea Nitrogen 41 mg/dL (7-17); Calcium 9.1 mg/dL (8.4-10.2); Carbon Dioxide 15 mmol/L (22-30); Chloride 127 mmol/L (98-107); Globulin 3.3 g/dL; Glucose 85 mg/dL (74-99); Non-African American GFR(CKD) 35 (>60 ml/min/1.73 sqM); Sodium 153 mmol/L (137-145)
[2020-08-30 06:33] LABS: AST 44 U/L (14-36); Alkaline Phosphatase 60 U/L (38-126); Potassium 4.9 mmol/L (3.5-5.1)
[2020-08-30] MEDS: ALBUTEROL HFA INHALER INHALATION SCH ×3 (09:02→20:52)
[2020-08-30] MEDS: ENOXAPARIN 30 MG/0.3 ML SYRINGE SQ SCH (10:41)
[2020-08-30] MEDS: PANTOPRAZOLE 40 MG TABLET PO SCH (10:42)
[2020-08-30] MEDS: CHOLECALCIFEROL 25 MCG (1000 IU) TABLET PO SCH (10:42)
[2020-08-30] MEDS: CYANOCOBALAMIN 500 MCG TAB PO SCH (10:42)
[2020-08-30] MEDS: FOLIC ACID 1 MG TAB PO SCH (10:42)
[2020-08-30] MEDS: ASCORBIC ACID 500 MG TAB PO SCH ×3 (10:43→19:49)
[2020-08-30] MEDS: DEXAMETHASONE SOD PHOSPHATE 10 MG/ML 1 ML VIAL IV SCH (10:43)
[2020-08-30] MEDS: ZINC SULFATE 220 MG CAP PO SCH (10:43)
--- NOTE | 2020-08-30 11:33 | XR ---
EXAMINATION TYPE: XR chest 1V portable DATE OF EXAM: 08/30/2020 COMPARISON: Chest x-ray 08/29/2020 HISTORY: Congestive heart failure, Covid symptoms, shortness of breath TECHNIQUE: Single frontal view of the chest is obtained. FINDINGS: Bilateral airspace disease is again noted. Thoracic cord stimulator lead is again seen ove rlying the midthoracic spine. Aorta is dense. There is no evident pneumothorax or pleural effusion. C ardiomediastinal silhouette is stable. Postop changes are noted in the lumbar spine. There is a spina l curvature, postop change noted to the right humerus, there are overlying artifacts. IMPRESSION: Correlate for pneumonia, atypical congestive heart failure not excluded.
[2020-08-30] MEDS: AZITHROMYCIN 500 MG in SODIUM CHLORIDE 0.9% 250 ML IVPB SCH (12:54)
--- NOTE | 2020-08-30 15:12 | P.PN ---
Subjective Progress Note Date: 08/30/20 Principal diagnosis: Altered mental status, hypoxia This is a 80-year-old female patient who recently had two hospitalizations initially at [facility] and was positive for CoVID 19 08/19/2020. She is subsequently discharged home and sustained a fall and was taken to [facility]. She did have a left wrist fracture. She subsequently was discharged from there to [facility] for rehabilitation. She was brought in here to the emergency room yesterday with altered mental status and hypoxemia with oxygen saturations in the 70s. is a very poor historian no information is able to be obtained from her. CT angiogram revealed no evidence of pulmonary embolism. There is extensive pulmonary interstitial infiltrates consider with pneumonia, pulmonary fibrosis. She does have a history of being a heavy smoker and prior to her initial hospitalization at [facility] she was alert and oriented 3 according to family members per nursing staff. Today's chest x- ray shows bilateral airspace disease. Urine culture pending. White count 11.1. Hemoglobin 12.8. D-dimer 1.43. Sodium 148. Potassium 4.7. Creatinine 1.38. Initial lactic acid 3.1 and currently 1.4. Ferritin 82. LDH 1145. C-reactive protein 6.4. Pro-calcitonin 0.20. Jones virus by PCR detected. She was initially requiring nonrebreather mask but maintaining O2 saturations in the 90s. She's currently on 4 L with O2 saturation of 99%. She is resting in bed. She is unable to answer any questions. She is arousable but drowsy and her speech is garbled. She's been initiated on Zosyn and azithromycin. Lovenox for DVT prophylaxis. Decadron and vitamin supplements. Current fluids at 20 ML's per hour. On 08/30/2020 patient seen in follow-up on medical surgical floor, she is resting comfortably in bed, she is currently on partial rebreather mask appears to be breathing comfortable, her pulse ox is 96-97% and I will be further weaned down, she is afebrile, hemodynamically she stable, no complaints of chest discomfort, is being assisted with her meal, and she is asking for chocolate ice cream. Today's chest x-ray showing bilateral airspace disease. Patient remains on azithromycin, dexamethasone 6 mg daily, she is on D5 and water at a rate of 100 ML per hour, and prophylactic dose Lovenox. In addition patient is on Zosyn for for possibility of pneumonia. Today's labs have been reviewed, white blood cell count is 16.7, hemoglobin is 14.3, sodium is up to 153, potassium is 4.9, chloride is 127, CO2 is 15, BUN is 41, creatinine is 1.42, AST has increased slightly and is up at 44, ALT is 49, alk phos is within normal limits, 2 sets of pro-calcitonin levels were negative at 0.20 and 0.18, urinalysis showed turbid urine with trace protein, trace blood, but no definite sign of urinary tract infection, and her COVID-19 PCR was still positive Objective - Vital Signs Vital signs: Vital Signs Temp 97.8 F 08/30/20 07:00 Pulse 62 08/30/20 07:00 Resp 16 08/30/20 07:00 BP 136/73 08/30/20 07:00 Pulse Ox 97 08/30/20 07:00 Intake & Output 08/29/20 08/30/20 08/30/20 18:59 06:59 18:59 Output Total 401 550 Balance -401 -550 Output: Urine 400 550 Stool 1 Other: Voiding Method Indwelling Catheter Indwelling Catheter # Bowel Movements 0 - Exam GENERAL EXAM: Alert, very pleasant, 80-year-old white female, on partial nonrebreather mask, with pulse ox of 96-97% comfortable in no apparent distress. HEAD: Normocephalic/atraumatic. EYES: Normal reaction of pupils, equal size. Conjunctiva pink, sclera white. NOSE: Clear with pink turbinates. THROAT: No erythema or exudates. NECK: No masses, no JVD, no thyroid enlargement, no adenopathy. CHEST: No chest wall deformity. Symmetrical expansion. LUNGS: Equal air entry with bilateral crackles CVS: Regular rate and rhythm, normal S1 and S2, no gallops, no murmurs, no rubs ABDOMEN: Soft, nontender. No hepatosplenomegaly, normal bowel sounds, no guarding or rigidity. EXTREMITIES: No clubbing, no edema, no cyanosis, 2+ pulses and upper and lower extremities. MUSCULOSKELETAL: Muscle strength and tone normal. SPINE: No scoliosis or deformity SKIN: No rashes CENTRAL NERVOUS SYSTEM: Alert and oriented -3. No focal deficits, tone is no rmal in all 4 extremities. PSYCHIATRIC: Alert and oriented -3. Appropriate affect. Intact judgment and insight. - Labs CBC & Chem 7: 08/30/20 05:24 08/30/20 05:24 Labs: Abnormal Lab Results - Last 24 Hours (Table) 08/29/20 08/30/20 08/30/20 Range/Units 05:28 05:24 05:24 WBC 16.7 H (3.8-10.6) k/uL Neutrophils # 14.1 H (1.3-7.7) k/uL Sodium 153 H (137-145) mmol/L Chloride 127 H (98-107) mmol/L Carbon Dioxide 15 L (22-30) mmol/L BUN 41 H (7-17) mg/dL Creatinine 1.42 H (0.52-1.04) mg/dL AST 44 H (14-36) U/L ALT 49 H (4-34) U/L Total Protein 6.0 L (6.3-8.2) g/dL Albumin 2.7 L (3.5-5.0) g/dL Procalcitonin 0.18 H (0.02-0.09) ng/mL Microbiology - Last 24 Hours (Table) 08/29/20 04:30 Urine Culture - Final Urine,Catheterized 08/28/20 12:47 Blood Culture - Preliminary Blood No Growth after 24 hours 08/28/20 12:47 Blood Culture - Preliminary Blood No Growth after 24 hours Assessment and Plan Plan: 1 Acute hypoxemic respiratory failure secondary to COVID-19 pneumonia. Unsure of the date the initial diagnosis. 2 Recent admissions to both [facility] and [facility], discharged to [facility] 3 Recent fall with fracture of the left arm/wrist 4 Altered mental status 5 Acute renal failure 6 Elevated inflammatory markers secondary to COVID-19 infection 7 Possible urinary tract infection, culture pending 8 Lactic acidosis, improved Plan: Patient is breathing comfortably, Continue weaning FiO2 to maintain O2 saturations at or above 90% Pro-calcitonin level is negative and her antibiotics will be discontinued Continue with current dose of Lovenox, obtain follow-up d-dimer Increase oral water intake, we'll need to increase her D5W to 150 ML per hour Continue to closely follow her clinical course Overall prognosis is guarded I performed a history & physical examination of the patient and discussed their management with my nurse practitioner, Madalyn Rudd. I reviewed the nurse practitioner's note and agree with the documented findings and plan of care. Lung sounds are positive for diffuse crackles throughout the lung hester. The findings and the impression was discussed with the patient. I attest to the documentation by the nurse practitioner. Time with Patient: Less than 30
--- NOTE | 2020-08-30 16:25 | PN ---
PROGRESS NOTE DATE OF SERVICE: 08/30/2020 This 80-year-old woman who was admitted with acute COVID-19 infection as well as COVID- 19 pneumonia is being closely monitored. The patient is hypoxic at this time. The most recent chest x-ray, which was done today and was reviewed personally by me, showed bilateral extensive infiltrates. The patient is currently NO CODE. Pulmonary team is also following the patient closely. Past medical history reviewed. Review of systems could not be taken. CURRENT MEDICATIONS: Reviewed. They include Ventolin, vitamin C, Hurricaine spray, vitamin D3, vitamin B12, Decadron, Lovenox, folic acid. PHYSICAL EXAMINATION: Patient is stuporous. Pulse 62, blood pressure 130/73, respirations 16, temperature 97.2, pulse ox 97% on non-rebreather mask. HEENT: Conjunctivae normal. NECK: No jugular venous distention. CARDIOVASCULAR SYSTEM: S1, S2 muffled. RESPIRATORY SYSTEM: Breath sounds diminished at the bases. Bilateral scattered rhonchi and crackles. ABDOMEN: Soft, non-tender. LEGS: No edema. No swelling. NERVOUS SYSTEM: No focal deficit. LABS: WBC 16.7, sodium 153. Procalcitonin is 1.18. ASSESSMENT: 1. Acute COVID-19 infection with acute COVID-19 bacterial interstitial pneumonia with acute hypoxic respiratory failure. 2. Change in mental status, acute on chronic metabolic encephalopathy. 3. Hypernatremia. 4. History of recent left wrist fracture. 5. Increased creatinine with possible acute kidney injury with acute tubular necrosis with dehydration. 6. Possible sepsis, present on admission, with elevated plasma lactic acid as well as possible super added bacterial pneumonia. 7. Elevated LDH. 8. Elevated inflammatory markers of COVID-19. 9. Elevated D-dimer without any evidence of acute pulmonary embolism. 10.Increased white count. 11.Elevated procalcitonin. 12.History of gastroesophageal reflux disease. 13.Hypertension. 14.Hyperlipidemia. 15.History of anxiety, depression. 16.NO CPR, NO CPR, NO VENT. RECOMMENDATIONS AND DISCUSSION: I recommend to continue current medications, continue with the monitoring, symptomatic treatment. Continue with the bronchodilators. Continue oxygen. Closely follow with Pulmonary. Continue with D5 water drip. Monitor electrolytes closely. Guarded prognosis. Further recommendations to follow. MMODL / IJN: [id number] /
[2020-08-30] MEDS: QUEtiapine 25 MG TAB PO SCH ×2 (19:49)
--- NOTE | 2020-08-31 07:57 | P.PN ---
Subjective Progress Note Date: 08/31/20 Principal diagnosis: L wrist fracture Pt s/e. Some pain in wrist. More lucid than at time of consult. Denies any other symptoms no numbness/tingling. Objective - Vital Signs Vital signs: Vital Signs Temp 98.0 F 08/31/20 02:00 Pulse 88 08/31/20 02:00 Resp 18 08/31/20 02:00 BP 144/82 08/31/20 02:00 Pulse Ox 95 08/31/20 02:00 Intake & Output 08/30/20 08/31/20 08/31/20 18:59 06:59 18:59 Intake Total 1150 1200 Output Total 541 100 Balance 609 1100 Intake: IV 1150 1200 Azithromycin 500 mg In 250 Sodium Chloride 0.9% 250 ml @ 250 mls/hr IVPB DAILY@1200 [facility] Rx#: [id number] Dextrose 5% in Water 1, 900 1200 000 ml @ 150 mls/hr IV . [id number] [facility] Rx#:[id number] Output: Urine 540 100 Stool 1 Other: Voiding Method Indwelling Catheter Indwelling Catheter # Voids 2 - Exam AOX1-2, NAD. Nods head yes and says no. Answers questions appropriately. CTAB RRR LUE: Splint in place, molded. Brusing about the hand on the L. Minimal swelling noted. Brusing noted on all 4 ext as well as skin tears and minor abrasions. Able to wiggle all fingers w/o any issues. SILT C5-T1 Cap refill brisk <2 sec all fingers Compartments soft +motor med/rad/ulnar nerves + motor b/l LE all major muscle groups Remainding joints and extremetiesl Upper and lower w/o pain on passive ROM or palpation at this time. - Labs CBC & Chem 7: 08/30/20 05:24 08/30/20 05:24 Labs: Abnormal Lab Results - Last 24 Hours (Table) 08/31/20 Range/Units 06:06 D-Dimer 3.11 H (<0.60) mg/L FEU Microbiology - Last 24 Hours (Table) 08/28/20 12:47 Blood Culture - Preliminary Blood No Growth after 48 hours 08/28/20 12:47 Blood Culture - Preliminary Blood No Growth after 48 hours 08/29/20 04:30 Urine Culture - Final Urine,Catheterized Assessment and Plan Assessment: 80 yo female with complex medical history with displaced, comminuted, angulated distal radicus and ulna fracture on the L s/p multiple FFS. Plan: At this time, the patient is likely non surgical. We will follow for improvement in her status and have a family discussion about goals for her. While her fracture is surgical, she is an extremely poor surgical candidate. She was seen at [place] and this was ortho impression there as well. If she improves, and family wants this done we can always revisit surgery.
[2020-08-31] MEDS: ALBUTEROL HFA INHALER INHALATION SCH ×3 (08:19→20:14)
[2020-08-31] MEDS: ZINC SULFATE 220 MG CAP PO SCH (08:40)
[2020-08-31] MEDS: CHOLECALCIFEROL 25 MCG (1000 IU) TABLET PO SCH (08:40)
[2020-08-31] MEDS: ENOXAPARIN 30 MG/0.3 ML SYRINGE SQ SCH (08:40)
[2020-08-31] MEDS: FOLIC ACID 1 MG TAB PO SCH (08:40)
[2020-08-31] MEDS: ASCORBIC ACID 500 MG TAB PO SCH ×2 (08:40→21:00)
[2020-08-31] MEDS: DEXAMETHASONE SOD PHOSPHATE 10 MG/ML 1 ML VIAL IV SCH (08:40)
[2020-08-31] MEDS: CYANOCOBALAMIN 500 MCG TAB PO SCH (08:41)
[2020-08-31] MEDS: DEXTROSE 5% IN WATER 1,000 ML IV SCH ×3 (08:41→21:00)
[2020-08-31] MEDS: PANTOPRAZOLE 40 MG TABLET PO SCH (08:41)
[2020-08-31 10:28] LABS: Basophils # (A) 0.06 X 10*3/uL (0.00-0.10); Basophils % (A) 0.4 %; Eosinophils # (A) 0.13 X 10*3/uL (0.04-0.35); Eosinophils % (A) 0.9 %; HCT 39.3 % (37.2-46.3); HGB 12.3 g/dL (12.0-15.0); Lymphocytes # (A) 1.53 X 10*3/uL (0.90-5.00); Lymphocytes % (A) 10.5 %; MCH 32.1 pg (27.0-32.0); MCHC 31.3 g/dL (32.0-37.0); MCV 102.6 fL (80.0-97.0); Mean Platelet Volume 11.8 fL (9.5-12.2); Monocytes # (A) 0.67 X 10*3/uL (0.20-1.00); Monocytes % (A) 4.6 %; Neutrophils % (A) 80.7 %; Platelet Count 310 X 10*3/uL (140-440); RBC 3.83 X 10*6/uL (4.10-5.20); RDW 13.3 % (11.5-14.5); WBC 14.61 X 10*3/uL (4.50-10.00)
[2020-08-31 11:17] LABS: African American GFR (CKD) 49.1 (60.0-200.0); Anion Gap 9.7 mmol/L (4.00-12.00); BUN/Creat Ratio 26.67 Ratio (12.00-20.00); C Reactive Protein 3.1 mg/dL (0.0-0.8); Calcium 8.8 mg/dL (8.7-10.3); Carbon Dioxide 20.3 mmol/L (21.6-31.8); Non-African American GFR(CKD) 42.3 (60.0-200.0); Potassium 4.5 mmol/L (3.5-5.5)
--- NOTE | 2020-08-31 12:14 | P.PN ---
Subjective Progress Note Date: 08/31/20 Principal diagnosis: Shortness of breath. This is a 80-year-old female patient who recently had two hospitalizations initially at [facility] and was positive for CoVID 19 08/19/2020. She is subsequently discharged home and sustained a fall and was taken to [facility] [place]. She did have a left wrist fracture. She subsequently was discharged from there to [facility] for rehabilitation. She was brought in here to the emergency room yesterday with altered mental status and hypoxemia with oxygen saturations in the 70s. is a very poor historian no information is able to be obtained from her. CT angiogram revealed no evidence of pulmonary embolism. There is extensive pulmonary interstitial infiltrates consider with pneumonia, pulmonary fibrosis. She does have a history of being a heavy smoker and prior to her initial hospitalization at [facility] she was alert and oriented 3 according to family members per nursing staff. Today's chest x- ray shows bilateral airspace disease. Urine culture pending. White count 11.1. Hemoglobin 12.8. D-dimer 1.43. Sodium 148. Potassium 4.7. Creatinine 1.38. Initial lactic acid 3.1 and currently 1.4. Ferritin 82. LDH 1145. C-reactive protein 6.4. Pro-calcitonin 0.20. Jones virus by PCR detected. She was initially requiring nonrebreather mask but maintaining O2 saturations in the 90s. She's currently on 4 L with O2 saturation of 99%. She is resting in bed. She is unable to answer any questions. She is arousable but drowsy and her speech is garbled. She's been initiated on Zosyn and azithromycin. Lovenox for DVT prophylaxis. Decadron and vitamin supplements. Current fluids at 20 ML's per hour. On 08/30/2020 patient seen in follow-up on medical surgical floor, she is r esting comfortably in bed, she is currently on partial rebreather mask appears to be breathing comfortable, her pulse ox is 96-97% and I will be further weaned down, she is afebrile, hemodynamically she stable, no complaints of chest discomfort, is being assisted with her meal, and she is asking for chocolate ice cream. Today's chest x-ray showing bilateral airspace disease. Patient remains on azithromycin, dexamethasone 6 mg daily, she is on D5 and water at a rate of 100 ML per hour, and prophylactic dose Lovenox. In addition patient is on Zosyn for for possibility of pneumonia. Today's labs have been reviewed, white blood cell count is 16.7, hemoglobin is 14.3, sodium is up to 153, potassium is 4.9, chloride is 127, CO2 is 15, BUN is 41, creatinine is 1.42, AST has increased slightly and is up at 44, ALT is 49, alk phos is within normal limits, 2 sets of pro-calcitonin levels were negative at 0.20 and 0.18, urinalysis showed turbid urine with trace protein, trace blood, but no definite sign of urinary tract infection, and her COVID-19 PCR was still positive Progress note dated 08/31/2020. The patient is again seen in room 619. Currently, she is on a partial rebreather mask. She appears relatively comfortable. The patient is a no code. She's not receiving any IV fluids at this time. Lab data from today includes a white count of 14.61, hemoglobin 12.3, hematocrit 39.3, and a platelet count of 310,000. D-dimer is 3.11. Sodium 148, potassium 4.5, chlorides 118, CO2 20, anion gap 10, BUN 32, creatinine 1.2. Her LDH is 478, C-reactive protein is 3.1. Chest x-ray from yesterday shows bilateral airspace disease, which could be consistent with coronavirus pneumonia, and/or heart failure. Objective - Vital Signs Vital signs: Vital Signs Temp 97.6 F 08/31/20 07:00 Pulse 79 08/31/20 08:00 Resp 18 08/31/20 08:00 BP 147/83 08/31/20 07:00 Pulse Ox 90 L 08/31/20 07:00 Intake & Output 08/30/20 08/31/20 08/31/20 18:59 06:59 18:59 Intake Total 1150 1200 Output Total 541 100 1 Balance 609 1100 -1 Intake: IV 1150 1200 Azithromycin 500 mg In 250 Sodium Chloride 0.9% 250 ml @ 250 mls/hr IVPB DAILY@1200 [facility] Rx#: [id number] Dextrose 5% in Water 1, 900 1200 000 ml @ 150 mls/hr IV . Q6H40M [facility] Rx#:[id number] Output: Urine 540 100 Stool 1 1 Other: Voiding Method Indwelling Catheter Indwelling Catheter Indwelling Catheter # Voids 2 - Exam Confused, not oriented, currently on a partial rebreather mask. Saturations are between 90 and 95%. HEENT examination is grossly unremarkable. Neck supple. Full range of motion. No adenopathy thyromegaly or neck vein distention. Cardiovascular examination reveals regular rhythm rate. S1-S2 normal. No S3 or S4. No discernible murmur noted. Heart sounds are distant. Heart rate 79 bpm. Lungs reveal diminished bilateral breath sounds. Bibasilar crackles are noted. A few scattered rhonchi are noted. No wheezes. Abdomen soft bowel sounds are heard. No masses or tenderness. Extremities are intact. No cyanosis clubbing or edema. Skin is without rash or lesion. Neurologic examination reveals this patient to be very confused and somewhat agitated. - Labs CBC & Chem 7: 08/31/20 06:06 08/31/20 06:06 Labs: Abnormal Lab Results - Last 24 Hours (Table) 08/31/20 08/31/20 08/31/20 Range/Units 06:06 06:06 06:06 WBC 14.61 H (4.50-10.00) X 10*3/uL RBC 3.83 L (4.10-5.20) X 10*6/uL MCV 102.6 H (80.0-97.0) fL MCH 32.1 H (27.0-32.0) pg MCHC 31.3 L (32.0-37.0) g/dL Immature Gran # 0.42 H (0.00-0.04) X 10*3/uL Neutrophils # 11.80 H (1.80-7.70) X 10*3/uL D-Dimer 3.11 H (<0.60) mg/L FEU Sodium 148 H (135-145) mmol/L Chloride 118 H (96-109) mmol/L Carbon Dioxide 20.3 L (21.6-31.8) mmol/L BUN 32.0 H (9.0-27.0) mg/dL Est GFR (CKD-EPI)AfAm 49.1 L (60.0-200.0) Est GFR (CKD-EPI)NonAf 42.3 L (60.0-200.0) BUN/Creatinine Ratio 26.67 H (12.00-20.00) Ratio Glucose 141 H (70-110) mg/dL Lactate Dehydrogenase 478 H (120-246) U/L C-Reactive Protein 3.1 H (0.0-0.8) mg/dL Microbiology - Last 24 Hours (Table) 08/28/20 12:47 Blood Culture - Preliminary Blood No Growth after 48 hours 08/28/20 12:47 Blood Culture - Preliminary Blood No Growth after 48 hours 08/29/20 04:30 Urine Culture - Final Urine,Catheterized Assessment and Plan Assessment: Acute hypoxemic respiratory failure secondary to COVID 19 pneumonia. Recent admission to both [facility], and [facility], discharged to [facility]. Recent fall with fracture of the left arm/wrist. Mental status changes, with likely underlying dementia. Acute renal failure. Elevated inflammatory marker secondary to COVID 19, improved. Possible urinary tract infection. Lactic acidosis,resolved. Plan: Plan dated August 31, 2020. Currently, the patient's doing reasonably well. She still is requiring a partial rebreather mask. Her saturations are in the low 90s. We will continue with current medications. Overall prognosis is not particularly good. We will continue to follow make recommendations were appropriate. The patient remains on an albuterol inhaler, vitamin C, vitamin D3, Decadron, Lovenox, and zinc. These are all appropriate. Additional recommendations and suggestions are forthcoming. Time with Patient: Less than 30
--- NOTE | 2020-08-31 16:29 | P.PN ---
Subjective Progress Note Date: 08/31/20 This is an 80-year-old female who was recently admitted acute COVID-19 infection as well as COVID-19 pneumonia and is being closely monitored. A continues to be hypoxic requiring 15 L high flow. Pulmonary is following. Patient is maintained on Lovenox along with vitamin C and D and zinc supplements and will continue. Patient to continue with bronchodilators as well. Patient is on dexamethasone as well and will continue. Orthopedic surgery following continuing with conservative management of the left wrist she has not a surgical candidate at this time given current situation an acute COVID-19 infection. A blood count today is 14.61, hemoglobin is 12.3, d-dimer is 3.11 Jamie sodium is 148, potassium is 4.5, creatinine slightly improved at 1.2. Patient is on D5 with water and will repeat a.m. labs. Review of systems: Unable to obtain as patient is extremely lethargic Active Medications Albuterol Sulfate (Albuterol Hfa Inhaler) 2 puff INHALATION RT-Q6H PRN PRN Reason: Shortness Of Breath Or Wheezing Albuterol Sulfate (Albuterol Hfa Inhaler) 2 puff INHALATION RT-TID [facility] Last Admin: 08/31/20 12:21 Dose: 2 puff Documented by: Ascorbic Acid (Ascorbic Acid 500 Mg Tab) 500 mg PO BID [facility] Last Admin: 08/31/20 08:40 Dose: 500 mg Documented by: Benzocaine (Benzocaine [place] 1 Can) 1 spray MUCOUS MEM QID PRN PRN Reason: Mouth Irritation Cholecalciferol (Cholecalciferol 25 Mcg (1000 Iu) Tablet) 125 mcg PO DAILY [facility] Last Admin: 08/31/20 08:40 Dose: 125 mcg Documented by: Cyanocobalamin (Cyanocobalamin 500 Mcg Tab) 1,000 mcg PO DAILY [facility] Last Admin: 08/31/20 08:41 Dose: 1,000 mcg Documented by: Dexamethasone Sodium Phosphate (Dexamethasone Sod Phosphate 10 Mg/Ml 1 Ml Vial) 6 mg IV DAILY [facility] Last Admin: 08/31/20 08:40 Dose: 6 mg Documented by: Enoxaparin Sodium (Enoxaparin 30 Mg/0.3 Ml Syringe) 30 mg SQ DAILY [facility] Last Admin: 08/31/20 08:40 Dose: 30 mg Documented by: Folic Acid (Folic Acid 1 Mg Tab) 1 mg PO DAILY [facility] Last Admin: 04/27/21 08:40 Dose: 1 mg Documented by: Dextrose/Water (Dextrose 5%-Water Iv Soln) 1,000 mls @ 150 mls/hr IV .Q6H40M [facility] Last Admin: 08/31/20 08:41 Dose: 150 mls/hr Documented by: Miscellaneous Information (Pneumonia Protocol Utilized 1 Each Misc) 1 each PO ONCE PRN PRN Reason: Per Protocol Pantoprazole Sodium (Pantoprazole 40 Mg Tablet) 40 mg PO AC-BRKFST [facility] Last Admin: 08/31/20 08:41 Dose: 40 mg Documented by: Quetiapine Fumarate (Quetiapine 25 Mg Tab) 25 mg PO HS [facility] Last Admin: 08/30/20 19:49 Dose: 25 mg Documented by: Tramadol HCl (Tramadol 50 Mg Tab) 50 mg PO Q8H PRN PRN Reason: Pain Last Admin: 08/28/20 23:04 Dose: 50 mg Documented by: Zinc Sulfate (Zinc Sulfate 220 Mg Cap) 220 mg PO DAILY [facility] Last Admin: 08/31/20 08:40 Dose: 220 mg Documented by: Objective - Vital Signs Vital signs: Vital Signs Temp 98.1 F 08/31/20 14:38 Pulse 102 H 08/31/20 14:38 Resp 18 08/31/20 14:38 BP 114/69 08/31/20 14:38 Pulse Ox 96 08/31/20 14:38 Intake & Output 08/30/20 08/31/20 08/31/20 18:59 06:59 18:59 Intake Total 1150 1200 Output Total 541 100 501 Balance 609 1100 -501 Intake: IV 1150 1200 Azithromycin 500 mg In 250 Sodium Chloride 0.9% 250 ml @ 250 mls/hr IVPB DAILY@1200 [facility] Rx#: [id number] Dextrose 5% in Water 1, 900 1200 000 ml @ 150 mls/hr IV . Q6H40M [facility] Rx#:[id number] Output: Urine 540 100 500 Stool 1 1 Other: Voiding Method Indwelling Catheter Indwelling Catheter Indwelling Catheter # Voids 2 - Exam Gen: This is a 80-year-old female lethargic and sleeping maintained on 15 L nonrebreather. Temp is 98.1F, pulse is 102, respirations are 18, blood pressure is 114/69, oxygen saturation is 96% on nonrebreather at 15 L HEENT: Head is atraumatic, normocephalic. Pupils equal, round. Sclerae is anic teric. NECK: Supple. No JVD. No lymphadenopathy. No thyromegaly. LUNGS: Diminished breath sounds bilaterally with some scattered rhonchi and crackles noted. No intercostal retractions. HEART: S1, S2 are muffled ABDOMEN: Soft. Bowel sounds are present. No masses. No tenderness. EXTREMITIES: No pedal edema. No calf tenderness. NEUROLOGICAL: Patient is sleeping but arousable, Lethargic and diffusely weak. - Labs CBC & Chem 7: 08/31/20 06:06 08/31/20 06:06 Labs: Abnormal Lab Results - Last 24 Hours (Table) 08/31/20 08/31/20 08/31/20 Range/Units 06:06 06:06 06:06 WBC 14.61 H (4.50-10.00) X 10*3/uL RBC 3.83 L (4.10-5.20) X 10*6/uL MCV 102.6 H (80.0-97.0) fL MCH 32.1 H (27.0-32.0) pg MCHC 31.3 L (32.0-37.0) g/dL Immature Gran # 0.42 H (0.00-0.04) X 10*3/uL Neutrophils # 11.80 H (1.80-7.70) X 10*3/uL D-Dimer 3.11 H (<0.60) mg/L FEU Sodium 148 H (135-145) mmol/L Chloride 118 H (96-109) mmol/L Carbon Dioxide 20.3 L (21.6-31.8) mmol/L BUN 32.0 H (9.0-27.0) mg/dL Est GFR (CKD-EPI)AfAm 49.1 L (60.0-200.0) Est GFR (CKD-EPI)NonAf 42.3 L (60.0-200.0) BUN/Creatinine Ratio 26.67 H (12.00-20.00) Ratio Glucose 141 H (70-110) mg/dL Lactate Dehydrogenase 478 H (120-246) U/L C-Reactive Protein 3.1 H (0.0-0.8) mg/dL Microbiology - Last 24 Hours (Table) 08/28/20 12:47 Blood Culture - Preliminary Blood No Growth after 72 hours 08/28/20 12:47 Blood Culture - Preliminary Blood No Growth after 48 hours Assessment and Plan Assessment: Acute COVID-19 infection with acute COVID-19 bacterial interstitial pneumonia with acute hypoxic respiratory failure Change in mental status, acute on chronic metabolic encephalopathy Hypernatremia [place] history of recent left wrist fracture Increased creatinine with possible acute kidney injury with acute tubular necrosis with dehydration Possible sepsis, present on admission with elevated plasma lactic acid as well as possible super bacterial pneumonia Elevated LDH Elevated inflammatory markers of COVID-19 Elevated d-dimer without any evidence of acute pulmonary embolism Increased white count Elevated pro calcitonin History of GERD Hypertension Hyperlipidemia sign history of anxiety, depression No CPR,no code, no vent Recommendations and discussion: Continue with oxygen therapy and monitor for attempts at weaning FiO2 as tolerated. Continue with Lovenox, dexamethasone, and vitamin supplements. Pulmonary Is following. Continue with D5 in water and will repeat a.m. labs. Prognosis remains extremely guarded.
[2020-08-31] MEDS: QUEtiapine 25 MG TAB PO SCH (21:00)
[2020-09-01] MEDS: DEXTROSE 5% IN WATER 1,000 ML IV SCH ×4 (04:06→20:27)
[2020-09-01] MEDS: CHOLECALCIFEROL 25 MCG (1000 IU) TABLET PO SCH (08:14)
[2020-09-01] MEDS: FOLIC ACID 1 MG TAB PO SCH (08:14)
[2020-09-01] MEDS: ASCORBIC ACID 500 MG TAB PO SCH ×2 (08:14→20:26)
[2020-09-01] MEDS: CYANOCOBALAMIN 500 MCG TAB PO SCH (08:14)
[2020-09-01] MEDS: PANTOPRAZOLE 40 MG TABLET PO SCH (08:15)
[2020-09-01] MEDS: ENOXAPARIN 30 MG/0.3 ML SYRINGE SQ SCH (08:15)
[2020-09-01] MEDS: DEXAMETHASONE SOD PHOSPHATE 10 MG/ML 1 ML VIAL IV SCH (08:15)
[2020-09-01] MEDS: ZINC SULFATE 220 MG CAP PO SCH (08:15)
[2020-09-01] MEDS: ALBUTEROL HFA INHALER INHALATION SCH ×3 (09:16→19:32)
[2020-09-01 10:04] LABS: African American GFR (CKD) 61.2 (60.0-200.0); Anion Gap 13.5 mmol/L (4.00-12.00); Calcium 8.7 mg/dL (8.7-10.3); Carbon Dioxide 17.5 mmol/L (21.6-31.8); Non-African American GFR(CKD) 52.8 (60.0-200.0); Potassium 4.4 mmol/L (3.5-5.5)
--- NOTE | 2020-09-01 12:11 | P.PN ---
Subjective Progress Note Date: 09/01/20 This is a 80-year-old female patient who recently had two hospitalizations initially at [facility] and was positive for CoVID 19 08/19/2020. She is subsequently discharged home and sustained a fall and was taken to [facility]. She did have a left wrist fracture. She subsequently was discharged from there to [facility] for rehabilitation. She was brought in here to the emergency room yesterday with altered mental status and hypoxemia with oxygen saturations in the 70s. is a very poor historian no information is able to be obtained from her. CT angiogram revealed no evidence of pulmonary embolism. There is extensive pulmonary interstitial infiltrates consider with pneumonia, pulmonary fibrosis. She does have a history of being a heavy smoker and prior to her initial hospitalization at [facility] she was alert and oriented 3 according to family members per nursing staff. Today's chest x- ray shows bilateral airspace disease. Urine culture pending. White count 11.1. Hemoglobin 12.8. D-dimer 1.43. Sodium 148. Potassium 4.7. Creatinine 1.38. Initial lactic acid 3.1 and currently 1.4. Ferritin 82. LDH 1145. C-reactive protein 6.4. Pro-calcitonin 0.20. Jones virus by PCR detected. She was initially requiring nonrebreather mask but maintaining O2 saturations in the 90s. She's currently on 4 L with O2 saturation of 99%. She is resting in bed. She is unable to answer any questions. She is arousable but drowsy and her speech is garbled. She's been initiated on Zosyn and azithromycin. Lovenox for DVT prophylaxis. Decadron and vitamin supplements. Current fluids at 20 ML's per hour. On 08/30/2020 patient seen in follow-up on medical surgical floor, she is resting comfortably in bed, she is currently on partial rebreather mask appears to be breathing comfortable, her pulse ox is 96-97% and I will be further weaned down, she is afebrile, hemodynamically she stable, no complaints of chest discomfort, is being assisted with her meal, and she is asking for chocolate ice cream. Today's chest x-ray showing bilateral airspace disease. Patient remains on azithromycin, dexamethasone 6 mg daily, she is on D5 and water at a rate of 100 ML per hour, and prophylactic dose Lovenox. In addition patient is on Zosyn for for possibility of pneumonia. Today's labs have been reviewed, white blood cell count is 16.7, hemoglobin is 14.3, sodium is up to 153, potassium is 4.9, chloride is 127, CO2 is 15, BUN is 41, creatinine is 1.42, AST has increased slightly and is up at 44, ALT is 49, alk phos is within normal limits, 2 sets of pro-calcitonin levels were negative at 0.20 and 0.18, urinalysis showed turbid urine with trace protein, trace blood, but no definite sign of urinary tract infection, and her COVID-19 PCR was still positive Progress note dated 08/31/2020. The patient is again seen in room 619. Currently, she is on a partial rebreather mask. She appears relatively comfortable. The patient is a no code. She's not receiving any IV fluids at this time. Lab data from today includes a white count of 14.61, hemoglobin 12.3, hematocrit 39.3, and a platelet count of 310,000. D-dimer is 3.11. Sodium 148, potassium 4.5, chlorides 118, CO2 20, anion gap 10, BUN 32, creatinine 1.2. Her LDH is 478, C-reactive protein is 3.1. Chest x-ray from yesterday shows bilateral airspace disease, which could be consistent with coronavirus pneumonia, and/or heart failure. The patient is seen today 09/01/2020 follow-up on the regular medical floor. She is currently resting fairly comfortably in bed. She is requiring FiO2 via nonrebreather mask. She's afebrile. Hemodynamically stable. Blood culture reveals no growth. Urine culture reveals no growth. Sodium 142. Potassium 4.4. Creatinine 1.0. Continued on dexamethasone, Lovenox, vitamin supplements. Objective - Vital Signs Vital signs: Vital Signs Temp 97.6 F 09/01/20 07:00 Pulse 95 09/01/20 07:00 Resp 20 09/01/20 08:00 BP 125/77 09/01/20 07:00 Pulse Ox 93 L 09/01/20 07:00 Intake & Output 08/31/20 09/01/20 09/01/20 18:59 06:59 18:59 Intake Total 2400 Output Total 501 200 Balance -501 2200 Intake: IV 1200 Dextrose 5% in Water 1, 1200 000 ml @ 150 mls/hr IV . Q6H40M [facility] Rx#:[id number] Intake, IV Titration 1200 Amount Dextrose 5% in Water 1, 1200 000 ml @ 150 mls/hr IV . Q6H40M [facility] Rx#:[id number] Output: Urine 500 200 Stool 1 Other: Voiding Method Indwelling Catheter Indwelling Catheter # Voids 2 - Exam GENERAL EXAM: Arousable, frail, lethargic 80-year-old female, on nonrebreather mask, appears comfortable in no apparent distress. HEAD: Normocephalic. EYES: Normal reaction of pupils, equal size. NOSE: Clear with pink turbinates. THROAT: No erythema or exudates. NECK: No masses, no JVD. CHEST: No chest wall deformity. LUNGS: Equal air entry with crackles in the bilateral posterior bases. CVS: S1 and S2 normal with no audible murmur, regular rhythm. ABDOMEN: No hepatosplenomegaly, normal bowel sounds, no guarding or rigidity. SPINE: No scoliosis or deformity SKIN: No rashes CENTRAL NERVOUS SYSTEM: No focal deficits, tone is normal in all 4 extremities. EXTREMITIES: There is no peripheral edema. No clubbing, no cyanosis. Peripheral pulses are intact. - Labs CBC & Chem 7: 08/31/20 06:06 09/01/20 04:57 Labs: Abnormal Lab Results - Last 24 Hours (Table) 09/01/20 Range/Units 04:57 Chloride 111 H (96-109) mmol/L Carbon Dioxide 17.5 L (21.6-31.8) mmol/L Anion Gap 13.50 H (4.00-12.00) mmol/L Est GFR (CKD-EPI)NonAf 52.8 L (60.0-200.0) BUN/Creatinine Ratio 24.00 H (12.00-20.00) Ratio Microbiology - Last 24 Hours (Table) 08/28/20 12:47 Blood Culture - Preliminary Blood No Growth after 72 hours 08/28/20 12:47 Blood Culture - Preliminary Blood No Growth after 72 hours Assessment and Plan Assessment: 1 Acute hypoxemic respiratory failure secondary to COVID-19 pneumonia. Unsure of the date the initial diagnosis. 2 Recent [facility] to [facility], discharged to [facility] 3 Recent fall with fracture of the left arm/wrist 4 Altered mental status 5 Acute renal failure 6 Elevated inflammatory markers secondary to COVID-19 infection 7 Possible urinary tract infection, culture pending 8 Lactic acidosis, improved Plan: The patient was seen and evaluated by Dr. Grissom Continue Lovenox, Decadron, vitamin supplements Titrate the FiO2 as tolerated DO NOT RESUSCITATE/DO NOT INTUBATE CODE STATUS Prognosis is guarded We will continue to follow and make further recommendations based on her clinical status I, the cosigning physician, performed a history & physical examination of the patient. Lungs sounds with crackles in the bilateral posterior bases. Maintaining good O2 saturations in the 90s on nonrebreather mask. I discussed the assessment and plan of care with my nurse practitioner, Genie Macias. I attest to the above note as dictated by her.
--- NOTE | 2020-09-01 16:01 | P.PN ---
Subjective Progress Note Date: 09/01/20 This is an 80-year-old female who was recently admitted acute COVID-19 infection as well as COVID-19 pneumonia and is being closely monitored. Patient continues to be hypoxic requiring 15 L high flow. Pulmonary is following. Patient is maintained on Lovenox along with vitamin C and D and zinc supplements and will continue. Patient to continue with bronchodilators as well. Patient is on dexamethasone as well and will continue. Orthopedic surgery following continuing with conservative management of the left wrist she has not a surgical candidate at this time given current situation an acute COVID-19 infection. A blood count today is 14.61, hemoglobin is 12.3, d-dimer is 3.11 Jamie sodium is 148, potassium is 4.5, creatinine slightly improved at 1.2. Patient is on D5 with water and will repeat a.m. labs. 09/01/2020 Patient is seen in follow-up this morning more alert although continues to be lethargic and maintained on 15 L via nonrebreather. Pulmonary following. Patient is maintained on vitamin and zinc supplements along with Lovenox and dexamethasone and will continue. Urine and blood cultures remain negative. Sodium today is 142, potassium is 4.4 and current creatinine is 1.0. Left wrist casting and swelling noted. Review of systems: Unable to obtain as patient is extremely lethargic Active Medications Albuterol Sulfate (Albuterol Hfa Inhaler) 2 puff INHALATION RT-Q6H PRN PRN Reason: Shortness Of Breath Or Wheezing Albuterol Sulfate (Albuterol Hfa Inhaler) 2 puff INHALATION RT-TID [facility] Last Admin: 09/01/20 12:39 Dose: 2 puff Documented by: Ascorbic Acid (Ascorbic Acid 500 Mg Tab) 500 mg PO BID [facility] Last Admin: 09/01/20 08:14 Dose: 500 mg Documented by: Benzocaine (Benzocaine [place] 1 Can) 1 spray MUCOUS MEM QID PRN PRN Reason: Mouth Irritation Cholecalciferol (Cholecalciferol 25 Mcg (1000 Iu) Tablet) 125 mcg PO DAILY [facility] Last Admin: 09/01/20 08:14 Dose: 125 mcg Documented by: Cyanocobalamin (Cyanocobalamin 500 Mcg Tab) 1,000 mcg PO DAILY [facility] Last Admin: 09/01/20 08:14 Dose: 1,000 mcg Documented by: Dexamethasone Sodium Phosphate (Dexamethasone Sod Phosphate 10 Mg/Ml 1 Ml Vial) 6 mg IV DAILY [facility] Last Admin: 09/01/20 08:15 Dose: 6 mg Documented by: Enoxaparin Sodium (Enoxaparin 40 Mg/0.4 Ml Syringe) 40 mg SQ DAILY [facility] Folic Acid (Folic Acid 1 Mg Tab) 1 mg PO DAILY [facility] Last Admin: 09/01/20 08:14 Dose: 1 mg Documented by: Dextrose/Water (Dextrose 5%-Water Iv Soln) 1,000 mls @ 150 mls/hr IV .Q6H40M [facility] Last Admin: 09/01/20 11:30 Dose: 150 mls/hr Documented by: Miscellaneous Information (Pneumonia Protocol Utilized 1 Each Misc) 1 each PO ONCE PRN PRN Reason: Per Protocol Pantoprazole Sodium (Pantoprazole 40 Mg Tablet) 40 mg PO AC-BRKFST [facility] Last Admin: 09/01/20 08:15 Dose: 40 mg Documented by: Quetiapine Fumarate (Quetiapine 25 Mg Tab) 25 mg PO HS [facility] Last Admin: 08/31/20 21:00 Dose: 25 mg Documented by: Tramadol HCl (Tramadol 50 Mg Tab) 50 mg PO Q8H PRN PRN Reason: Pain Last Admin: 08/28/20 23:04 Dose: 50 mg Documented by: Zinc Sulfate (Zinc Sulfate 220 Mg Cap) 220 mg PO DAILY [facility] Last Admin: 09/01/20 08:15 Dose: 220 mg Documented by: Objective - Vital Signs Vital signs: Vital Signs Temp 97.6 F 09/01/20 07:00 Pulse 95 09/01/20 07:00 Resp 24 09/01/20 07:00 BP 125/77 09/01/20 07:00 Pulse Ox 93 L 09/01/20 07:00 Intake & Output 08/31/20 09/01/20 09/01/20 18:59 06:59 18:59 Intake Total 2400 Output Total 501 200 Balance -501 2200 Intake: IV 1200 Dextrose 5% in Water 1, 1200 000 ml @ 150 mls/hr IV . Q6H40M [facility] Rx#:[id number] Intake, IV Titration 1200 Amount Dextrose 5% in Water 1, 1200 000 ml @ 150 mls/hr IV . Q6H40M [facility] Rx#:[id number] Output: Urine 500 200 Stool 1 Other: Voiding Method Indwelling Catheter # Voids 2 - Exam Gen: This is a 80-year-old female lethargic although more easily arousable today maintained on 15 L nonrebreather. HEENT: Head is atraumatic, normocephalic. Pupils equal, round. Sclerae is anicteric. NECK: Supple. No JVD. No lymphadenopathy. No thyromegaly. LUNGS: Diminished breath sounds bilaterally with some scattered rhonchi and crackles noted. No intercostal retractions. HEART: S1, S2 are muffled ABDOMEN: Soft. Bowel sounds are present. No masses. No tenderness. EXTREMITIES: No pedal edema. No calf tenderness. NEUROLOGICAL: Patient is sleeping but arousable, Lethargic and diffusely weak. - Labs CBC & Chem 7: 08/31/20 06:06 09/01/20 04:57 Labs: Abnormal Lab Results - Last 24 Hours (Table) 08/31/20 08/31/20 Range/Units 06:06 06:06 WBC 14.61 H (4.50-10.00) X 10*3/uL RBC 3.83 L (4.10-5.20) X 10*6/uL MCV 102.6 H (80.0-97.0) fL MCH 32.1 H (27.0-32.0) pg MCHC 31.3 L (32.0-37.0) g/dL Immature Gran # 0.42 H (0.00-0.04) X 10*3/uL Neutrophils # 11.80 H (1.80-7.70) X 10*3/uL Sodium 148 H (135-145) mmol/L Chloride 118 H (96-109) mmol/L Carbon Dioxide 20.3 L (21.6-31.8) mmol/L BUN 32.0 H (9.0-27.0) mg/dL Est GFR (CKD-EPI)AfAm 49.1 L (60.0-200.0) Est GFR (CKD-EPI)NonAf 42.3 L (60.0-200.0) BUN/Creatinine Ratio 26.67 H (12.00-20.00) Ratio Glucose 141 H (70-110) mg/dL Lactate Dehydrogenase 478 H (120-246) U/L C-Reactive Protein 3.1 H (0.0-0.8) mg/dL Microbiology - Last 24 Hours (Table) 08/28/20 12:47 Blood Culture - Preliminary Blood No Growth after 72 hours 08/28/20 12:47 Blood Culture - Preliminary Blood No Growth after 72 hours Assessment and Plan Assessment: Acute COVID-19 infection with acute COVID-19 bacterial interstitial pneumonia with acute hypoxic respiratory failure Change in mental status, acute on chronic metabolic encephalopathy Hypernatremia history of recent left wrist fracture Increased creatinine with possible acute kidney injury with acute tubular necro sis with dehydration Possible sepsis, present on admission with elevated plasma lactic acid as well as possible super bacterial pneumonia Elevated LDH Elevated inflammatory markers of COVID-19 Elevated d-dimer without any evidence of acute pulmonary embolism Increased white count Elevated pro calcitonin History of GERD Hypertension Hyperlipidemia history of anxiety, depression No CPR,no code, no vent Recommendations and discussion: Continue with oxygen therapy and monitor for attempts at weaning FiO2 as tolerated. Continues to be on 15 L nonrebreather although more awake and alert today. Continue with Lovenox, dexamethasone, and vitamin supplements. Pulmonary Is following. Continue with D5 in water and will repeat a.m. labs. Repeat chest x-ray in the morning. Prognosis remains extremely guarded.
[2020-09-01] MEDS: QUEtiapine 25 MG TAB PO SCH (20:26)
[2020-09-02] MEDS: DEXTROSE 5% IN WATER 1,000 ML IV SCH ×4 (05:23→22:27)
[2020-09-02 07:58] LABS: Basophils % (A) 0 %; Eosinophils # (A) 0.1 k/uL (0-0.7); Eosinophils % (A) 1 %; Lymphocytes # (A) 0.9 k/uL (1.0-4.8); Lymphocytes % (A) 7 %; MCH 31.2 pg (25.0-35.0); MCHC 32.4 g/dL (31.0-37.0); MCV 96.4 fL (80.0-100.0); Mean Platelet Volume 8.3; Monocytes # (A) 0.6 k/uL (0-1.0); Monocytes % (A) 5 %; Neutrophils # (A) 10.5 k/uL (1.3-7.7); Neutrophils % (A) 86 %; Platelet Count 312 k/uL (150-450); RBC 3.84 m/uL (3.80-5.40); RDW 12.8 % (11.5-15.5); WBC 12.3 k/uL (3.8-10.6)
[2020-09-02] MEDS: ALBUTEROL HFA INHALER INHALATION SCH ×3 (08:57→19:23)
--- NOTE | 2020-09-02 09:02 | XR ---
EXAMINATION TYPE: XR chest 1V portable DATE OF EXAM: 09/02/2020 COMPARISON: Chest x-ray 08/30/2020 HISTORY: Shortness of breath, Covid TECHNIQUE: Single frontal view of the chest is obtained. FINDINGS: Bilateral airspace disease is again noted. There is no evident pneumothorax or pleural eff usion. Thoracic stimulator lead is stable. Cardiac mediastinal silhouette is unchanged. Aorta is dens e. IMPRESSION: Findings consistent with pneumonia.
[2020-09-02] MEDS: CHOLECALCIFEROL 25 MCG (1000 IU) TABLET PO SCH (09:04)
[2020-09-02] MEDS: PANTOPRAZOLE 40 MG TABLET PO SCH (09:04)
[2020-09-02] MEDS: FOLIC ACID 1 MG TAB PO SCH (09:04)
[2020-09-02] MEDS: CYANOCOBALAMIN 500 MCG TAB PO SCH (09:04)
[2020-09-02] MEDS: DEXAMETHASONE SOD PHOSPHATE 10 MG/ML 1 ML VIAL IV SCH (09:04)
[2020-09-02] MEDS: ZINC SULFATE 220 MG CAP PO SCH (09:04)
[2020-09-02] MEDS: ASCORBIC ACID 500 MG TAB PO SCH ×2 (09:04→19:43)
[2020-09-02] MEDS: ENOXAPARIN 40 MG/0.4 ML SYRINGE SQ SCH (09:04)
--- NOTE | 2020-09-02 13:30 | P.PN ---
Subjective Progress Note Date: 09/02/20 This is a 80-year-old female patient who recently had two hospitalizations initially at [facility] and was positive for CoVID 19 08/19/2020. She is subsequently discharged home and sustained a fall and was taken to [facility]. She did have a left wrist fracture. She subsequently was discharged from there to [facility] for rehabilitation. She was brought in here to the emergency room yesterday with altered mental status and hypoxemia with oxygen saturations in the 70s. is a very poor historian no information is able to be obtained from her. CT angiogram revealed no evidence of pulmonary embolism. There is extensive pulmonary interstitial infiltrates consider with pneumonia, pulmonary fibrosis. She does have a history of being a heavy smoker and prior to her initial hospitalization at [facility] she was alert and oriented 3 according to family members per nursing staff. Today's chest x- ray shows bilateral airspace disease. Urine culture pending. White count 11.1. Hemoglobin 12.8. D-dimer 1.43. Sodium 148. Potassium 4.7. Creatinine 1.38. Initial lactic acid 3.1 and currently 1.4. Ferritin 82. LDH 1145. C-reactive protein 6.4. Pro-calcitonin 0.20. Jones virus by PCR detected. She was initially requiring nonrebreather mask but maintaining O2 saturations in the 90s. She's currently on 4 L with O2 saturation of 99%. She is resting in bed. She is unable to answer any questions. She is arousable but drowsy and her speech is garbled. She's been initiated on Zosyn and azithromycin. Lovenox for DVT prophylaxis. Decadron and vitamin supplements. Current fluids at 20 ML's per hour. On 08/30/2020 patient seen in follow-up on medical surgical floor, she is resting comfortably in bed, she is currently on partial rebreather mask appears to be breathing comfortable, her pulse ox is 96-97% and I will be further weaned down, she is afebrile, hemodynamically she stable, no complaints of chest discomfort, is being assisted with her meal, and she is asking for chocolate ice cream. Today's chest x-ray showing bilateral airspace disease. Patient remains on azithromycin, dexamethasone 6 mg daily, she is on D5 and water at a rate of 100 ML per hour, and prophylactic dose Lovenox. In addition patient is on Zosyn for for possibility of pneumonia. Today's labs have been reviewed, white blood cell count is 16.7, hemoglobin is 14.3, sodium is up to 153, potassium is 4.9, chloride is 127, CO2 is 15, BUN is 41, creatinine is 1.42, AST has increased slightly and is up at 44, ALT is 49, alk phos is within normal limits, 2 sets of pro-calcitonin levels were negative at 0.20 and 0.18, urinalysis showed turbid urine with trace protein, trace blood, but no definite sign of urinary tract infection, and her COVID-19 PCR was still positive Progress note dated 08/31/2020. The patient is again seen in room 619. Currently, she is on a partial rebreather mask. She appears relatively comfortable. The patient is a no code. She's not receiving any IV fluids at this time. Lab data from today includes a white count of 14.61, hemoglobin 12.3, hematocrit 39.3, and a platelet count of 310,000. D-dimer is 3.11. Sodium 148, potassium 4.5, chlorides 118, CO2 20, anion gap 10, BUN 32, creatinine 1.2. Her LDH is 478, C-reactive protein is 3.1. Chest x-ray from yesterday shows bilateral airspace disease, which could be consistent with coronavirus pneumonia, and/or heart failure. The patient is seen today 09/01/2020 follow-up on the regular medical floor. She is currently resting fairly comfortably in bed. She is requiring FiO2 via nonrebreather mask. She's afebrile. Hemodynamically stable. Blood culture reveals no growth. Urine culture reveals no growth. Sodium 142. Potassium 4.4. Creatinine 1.0. Continued on dexamethasone, Lovenox, vitamin supplements. The patient is seen today 09/02/2020 in follow-up on the regular medical floor. Currently resting in bed. She is maintaining O2 saturation mid 90s on a partial rebreather mask. She's afebrile. Arousable. Blood and urine cultures reveal no growth. White count 12.3. Hemoglobin 12.0. She remains on Lovenox, dexamethasone, vitamin supplements. Chest x-ray continues to show bilateral airspace disease. No pneumothorax. No pleural effusion. Objective - Vital Signs Vital signs: Vital Signs Temp 96.5 F L 09/02/20 07:00 Pulse 85 09/02/20 08:00 Resp 20 09/02/20 08:00 BP 109/64 09/02/20 07:00 Pulse Ox 95 09/02/20 08:57 Intake & Output 09/01/20 09/02/20 09/02/20 18:59 06:59 18:59 Output Total 300 1300 1 Balance -300 -1300 -1 Output: Urine 300 1300 Stool 1 Other: Voiding Method Indwelling Catheter Indwelling Catheter Indwelling Catheter # Bowel Movements 1 - Exam GENERAL EXAM: Arousable, frail, lethargic 80-year-old female, on partial rebreather mask, appears comfortable in no apparent distress. HEAD: Normocephalic. EYES: Normal reaction of pupils, equal size. NOSE: Clear with pink turbinates. THROAT: No erythema or exudates. NECK: No masses, no JVD. CHEST: No chest wall deformity. LUNGS: Equal air entry with crackles in the bilateral posterior bases. CVS: S1 and S2 normal with no audible murmur, regular rhythm. ABDOMEN: No hepatosplenomegaly, normal bowel sounds, no guarding or rigidity. SPINE: No scoliosis or deformity SKIN: No rashes CENTRAL NERVOUS SYSTEM: No focal deficits, tone is normal in all 4 extremities. EXTREMITIES: There is no peripheral edema. No clubbing, no cyanosis. Peripheral pulses are intact. - Labs CBC & Chem 7: 09/02/20 07:27 09/01/20 04:57 Labs: Abnormal Lab Results - Last 24 Hours (Table) 09/02/20 Range/Units 07:27 WBC 12.3 H (3.8-10.6) k/uL Neutrophils # 10.5 H (1.3-7.7) k/uL Lymphocytes # 0.9 L (1.0-4.8) k/uL Microbiology - Last 24 Hours (Table) 08/28/20 12:47 Blood Culture - Preliminary Blood No Growth after 96 hours 08/28/20 12:47 Blood Culture - Preliminary Blood No Growth after 96 hours Assessment and Plan Assessment: 1 Acute hypoxemic respiratory failure secondary to COVID-19 pneumonia. Unsure of the date the initial diagnosis. 2 Recent admissions to both [facility] and [facility], discharged to [facility] 3 Recent fall with fracture of the left arm/wrist 4 Altered mental status 5 Acute renal failure 6 Elevated inflammatory markers secondary to COVID-19 infection 7 Possible urinary tract infection, culture pending 8 Lactic acidosis, improved Plan: The patient was seen and evaluated by Dr. Grissom Chest x-ray and labs reviewed Continue Lovenox, Decadron, vitamin supplements Titrate the FiO2 as tolerated DO NOT RESUSCITATE/DO NOT INTUBATE CODE STATUS Prognosis is guarded We will continue to follow I, the cosigning physician, performed a history & physical examination of the patient. Lungs sounds with crackles in the bilateral posterior bases. Maintaining good O2 saturations in the 90s on partial rebreather mask. I discussed the assessment and plan of care with my nurse practitioner, Genie Macias. I attest to the above note as dictated by her.
--- NOTE | 2020-09-02 16:08 | P.PN ---
Subjective Progress Note Date: 09/02/20 This is an 80-year-old female who was recently admitted acute COVID-19 infection as well as COVID-19 pneumonia and is being closely monitored. Patient continues to be hypoxic requiring 15 L high flow. Pulmonary is following. Patient is maintained on Lovenox along with vitamin C and D and zinc supplements and will continue. Patient to continue with bronchodilators as well. Patient is on dexamethasone as well and will continue. Orthopedic surgery following continuing with conservative management of the left wrist she has not a surgical candidate at this time given current situation an acute COVID-19 infection. White blood count today is 14.61, hemoglobin is 12.3, d-dimer is 3.11 Jamie sodium is 148, potassium is 4.5, creatinine slightly improved at 1.2. Patient is on D5 with water and will repeat a.m. labs. 09/01/2020 Patient is seen in follow-up this morning more alert although continues to be lethargic and maintained on 15 L via nonrebreather. Pulmonary following. Patient is maintained on vitamin and zinc supplements along with Lovenox and dexamethasone and will continue. Urine and blood cultures remain negative. Sodium today is 142, potassium is 4.4 and current creatinine is 1.0. Left wrist casting and no swelling noted. 09/02/2020 Patient is seen this morning continues to be maintained on 15 L nonrebreather and per nursing staff is keeping her nonrebreather mask on today but needs redirection as she continues to take it off. Patient continues to be on vitamin and zinc supplements along with Lovenox and dexamethasone. Chest x-ray today shows continued bilateral airspace disease consistent with Covid pneumonia. Pulmonary is following. Had a lengthy discussion with her son Bobby and updated on treatment plan. Continue to monitor and wean FiO2 as tolerated. Patient denies any chest pain or shortness of breath. Patient is not eating very well and needs encouragement with meals. Objective - Vital Signs Vital signs: Vital Signs Temp 96.5 F L 09/02/20 07:00 Pulse 85 09/02/20 07:00 Resp 20 09/02/20 07:00 BP 109/64 09/02/20 07:00 Pulse Ox 95 09/02/20 08:57 Intake & Output 09/01/20 09/02/20 09/02/20 18:59 06:59 18:59 Output Total 300 1300 Balance -300 -1300 Output: Urine 300 1300 Other: Voiding Method Indwelling Catheter Indwelling Catheter # Bowel Movements 1 - Exam Gen: This is a 80-year-old female lethargic although more easily arousable today maintained on 15 L nonrebreather. HEENT: Head is atraumatic, normocephalic. Pupils equal, round. Sclerae is anicteric. NECK: Supple. No JVD. No lymphadenopathy. No thyromegaly. LUNGS: Diminished breath sounds bilaterally with some scattered rhonchi and crackles noted. No intercostal retractions. HEART: S1, S2 are muffled ABDOMEN: Soft. Bowel sounds are present. No masses. No tenderness. EXTREMITIES: No pedal edema. No calf tenderness. Left upper extremity sling noted NEUROLOGICAL: Patient is sleeping but arousable, Lethargic and diffusely weak. - Labs CBC & Chem 7: 09/02/20 07:27 09/01/20 04:57 Labs: Abnormal Lab Results - Last 24 Hours (Table) 09/01/20 09/02/20 Range/Units 04:57 07:27 WBC 12.3 H (3.8-10.6) k/uL Neutrophils # 10.5 H (1.3-7.7) k/uL Lymphocytes # 0.9 L (1.0-4.8) k/uL Chloride 111 H (96-109) mmol/L Carbon Dioxide 17.5 L (21.6-31.8) mmol/L Anion Gap 13.50 H (4.00-12.00) mmol/L Est GFR (CKD-EPI)NonAf 52.8 L (60.0-200.0) BUN/Creatinine Ratio 24.00 H (12.00-20.00) Ratio Microbiology - Last 24 Hours (Table) 08/28/20 12:47 Blood Culture - Preliminary Blood No Growth after 96 hours 08/28/20 12:47 Blood Culture - Preliminary Blood No Growth after 96 hours Assessment and Plan Assessment: Acute COVID-19 infection with acute COVID-19 bacterial interstitial pneumonia with acute hypoxic respiratory failure Change in mental status, acute on chronic metabolic encephalopathy Hypernatremia history of recent left wrist fracture Increased creatinine with possible acute kidney injury with acute tubular necrosis with dehydration Possible sepsis, present on admission with elevated plasma lactic acid as well as possible super bacterial pneumonia Elevated LDH Elevated inflammatory markers of COVID-19 Elevated d-dimer without any evidence of acute pulmonary embolism Increased white count Elevated pro calcitonin History of GERD Hypertension Hyperlipidemia history of anxiety, depression No CPR,no code, no vent Recommendations and discussion: Continue with oxygen therapy and monitor for attempts at weaning FiO2 as tolerated. Continues to be on 15 L nonrebreather and needs redirection on keeping mask on her face. Desats into the 60s and 70s without oxygen. Continue with Lovenox, dexamethasone, and vitamin supplements. Pulmonary Is following. Chest x-ray shows continued bilateral airspace disease. Prognosis remains extremely guarded.
[2020-09-02] MEDS: traMADol 50 MG TAB PO PRN (19:44)
[2020-09-02] MEDS: QUEtiapine 25 MG TAB PO SCH (19:45)
[2020-09-03 01:01] LABS: African American GFR (CKD) 54.5 (60.0-200.0); Anion Gap 12.4 mmol/L (4.00-12.00); Calcium 7.8 mg/dL (8.7-10.3); Carbon Dioxide 14.6 mmol/L (21.6-31.8); Potassium 3.7 mmol/L (3.5-5.5)
[2020-09-03] MEDS: DEXTROSE 5% IN WATER 1,000 ML IV SCH ×3 (04:00→22:47)
[2020-09-03] MEDS: ALBUTEROL HFA INHALER INHALATION SCH ×3 (08:08→19:21)
[2020-09-03] MEDS: PANTOPRAZOLE 40 MG TABLET PO SCH (08:34)
[2020-09-03] MEDS: ZINC SULFATE 220 MG CAP PO SCH (08:34)
[2020-09-03] MEDS: CYANOCOBALAMIN 500 MCG TAB PO SCH (08:34)
[2020-09-03] MEDS: CHOLECALCIFEROL 25 MCG (1000 IU) TABLET PO SCH (08:34)
[2020-09-03] MEDS: ASCORBIC ACID 500 MG TAB PO SCH ×2 (08:35→21:27)
[2020-09-03] MEDS: FOLIC ACID 1 MG TAB PO SCH (08:35)
[2020-09-03] MEDS: ENOXAPARIN 40 MG/0.4 ML SYRINGE SQ SCH (08:35)
[2020-09-03] MEDS: DEXAMETHASONE SOD PHOSPHATE 10 MG/ML 1 ML VIAL IV SCH (08:35)
[2020-09-03 10:41] VITALS: BMI 20.7
--- NOTE | 2020-09-03 13:30 | P.PN ---
Subjective Progress Note Date: 09/03/20 Principal diagnosis: Acute hypoxic respiratory failure secondary to COVID-19 pneumonia This is a 80-year-old female patient who recently had two hospitalizations initially at [facility] and was positive for CoVID 19 08/19/2020. She is subsequently discharged home and sustained a fall and was taken to [facility]. She did have a left wrist fracture. She subsequently was discharged from there to [facility] for rehabilitation. She was brought in here to the emergency room yesterday with altered mental status and hypoxemia with oxygen saturations in the 70s. is a very poor historian no information is able to be obtained from her. CT angiogram revealed no evidence of pulmonary embolism. There is extensive pulmonary interstitial infiltrates consider with pneumonia, pulmonary fibrosis. She does have a history of being a heavy smoker and prior to her initial hospitalization at [facility] she was alert and oriented 3 according to family members per nursing staff. Today's chest x- ray shows bilateral airspace disease. Urine culture pending. White count 11.1. Hemoglobin 12.8. D-dimer 1.43. Sodium 148. Potassium 4.7. Creatinine 1.38. Initial lactic acid 3.1 and currently 1.4. Ferritin 82. LDH 1145. C-reactive protein 6.4. Pro-calcitonin 0.20. Jones virus by PCR detected. She was initially requiring nonrebreather mask but maintaining O2 saturations in the 90s. She's currently on 4 L with O2 saturation of 99%. She is resting in bed. She is unable to answer any questions. She is arousable but drowsy and her sp eech is garbled. She's been initiated on Zosyn and azithromycin. Lovenox for DVT prophylaxis. Decadron and vitamin supplements. Current fluids at 20 ML's per hour. On 08/30/2020 patient seen in follow-up on medical surgical floor, she is resting comfortably in bed, she is currently on partial rebreather mask appears to be breathing comfortable, her pulse ox is 96-97% and I will be further weaned down, she is afebrile, hemodynamically she stable, no complaints of chest discomfort, is being assisted with her meal, and she is asking for chocolate ice cream. Today's chest x-ray showing bilateral airspace disease. Patient remains on azithromycin, dexamethasone 6 mg daily, she is on D5 and water at a rate of 100 ML per hour, and prophylactic dose Lovenox. In addition patient is on Zosyn for for possibility of pneumonia. Today's labs have been reviewed, white blood cell count is 16.7, hemoglobin is 14.3, sodium is up to 153, potassium is 4.9, chloride is 127, CO2 is 15, BUN is 41, creatinine is 1.42, AST has increased slightly and is up at 44, ALT is 49, alk phos is within normal limits, 2 sets of pro-calcitonin levels were negative at 0.20 and 0.18, urinalysis showed turbid urine with trace protein, trace blood, but no definite sign of urinary tract infection, and her COVID-19 PCR was still positive Progress note dated 08/31/2020. The patient is again seen in room 619. Currently, she is on a partial rebreather mask. She appears relatively comfortable. The patient is a no code. She's not receiving any IV fluids at this time. Lab data from today includes a white count of 14.61, hemoglobin 12.3, hematocrit 39.3, and a platelet count of 310,000. D-dimer is 3.11. Sodium 148, potassium 4.5, chlorides 118, CO2 20, anion gap 10, BUN 32, creatinine 1.2. Her LDH is 478, C-reactive protein is 3.1. Chest x-ray from yesterday shows bilateral airspace disease, which could be consistent with coronavirus pneumonia, and/or heart failure. The patient is seen today 09/01/2020 follow-up on the regular medical floor. She is currently resting fairly comfortably in bed. She is requiring FiO2 via nonrebreather mask. She's afebrile. Hemodynamically stable. Blood culture reveals no growth. Urine culture reveals no growth. Sodium 142. Potassium 4.4. Creatinine 1.0. Continued on dexamethasone, Lovenox, vitamin supplements. The patient is seen today 09/02/2020 in follow-up on the regular medical floor. Currently resting in bed. She is maintaining O2 saturation mid 90s on a partial rebreather mask. She's afebrile. Arousable. Blood and urine cultures reveal no growth. White count 12.3. Hemoglobin 12.0. She remains on Lovenox, dexamethasone, vitamin supplements. Chest x-ray continues to show bilateral airspace disease. No pneumothorax. No pleural effusion. Patient was reevaluated today on 09/03/2020, remains on the regular medical floor, continues to have shortness of breath, she is now on 10 L high flow cannula and O2 saturation is in the mid 90s and/95%. Patient is comfortable, but keeps complaining of shortness of breath. Labs from yesterday were reviewed, no labs today. Pro-calcitonin on admission was 0.18. Hence the patient was placed empirically on antibiotics. Chest x-ray continues to show significant bilateral airspace disease. Likely an bit worse compared to her admission chest x-ray on 08/28. Objective - Vital Signs Vital signs: Vital Signs Temp 97.5 F L 09/03/20 07:00 Pulse 83 09/03/20 07:00 Resp 17 09/03/20 08:00 BP 110/71 09/03/20 07:00 Pulse Ox 95 09/03/20 08:08 Intake & Output 09/02/20 09/03/20 09/03/20 18:59 06:59 18:59 Intake Total 200 Output Total 1001 1350 Balance -801 -1350 Weight 49.895 kg Intake: Oral 200 Output: Urine 1000 1350 Stool 1 Other: Voiding Method Indwelling Catheter Indwelling Catheter # Voids 3 # Bowel Movements 1 1 - Exam GENERAL EXAM: Revealed 80-year-old female, frail looking, on high flow nasal cannula. In no distress. HEAD: Normocephalic. Atraumatic. EENT: PERRLA, EOMI, nonicteric, no neck masses, no JVD, no stridor. NECK: No masses, no JVD. CHEST: No chest wall deformity. LUNGS: Fine crackles at the bases. CVS: S1 and S2 normal no murmur, no S3 gallop. ABDOMEN: No hepatosplenomegaly, normal bowel sounds, no guarding or rigidity. SKIN: No rashes CENTRAL NERVOUS SYSTEM: No focal deficits, tone is normal in all 4 extremities. EXTREMITIES: There is no peripheral edema. No clubbing, no cyanosis. Peripheral pulses are intact. - Labs CBC & Chem 7: 09/02/20 07:27 09/02/20 07:27 Labs: Abnormal Lab Results - Last 24 Hours (Table) 09/02/20 Range/Units 07:27 Chloride 111 H (96-109) mmol/L Carbon Dioxide 14.6 L (21.6-31.8) mmol/L Anion Gap 12.40 H (4.00-12.00) mmol/L Est GFR (CKD-EPI)AfAm 54.5 L (60.0-200.0) Est GFR (CKD-EPI)NonAf 47.0 L (60.0-200.0) Glucose 145 H (70-110) mg/dL Calcium 7.8 L (8.7-10.3) mg/dL Microbiology - Last 24 Hours (Table) 08/28/20 12:47 Blood Culture - Preliminary Blood No Growth after 120 hours 08/28/20 12:47 Blood Culture - Preliminary Blood No Growth after 120 hours Assessment and Plan Assessment: Impression: Acute hypoxic respiratory failure secondary to acute COVID-19 pneumonia. Recent admission to [facility] and [facility] for the same issue as above. Possible underlying healthcare acquired pneumonia considering the patient had elevated pro calcitonin level on admission. Recent left wrist fracture secondary to fall. Acute kidney injury. Elevated inflammatory markers secondary to COVID-19 infection Recommendation: Will empirically start Zosyn because of her worsening chest x-ray. And relatively elevated pro calcitonin level. Continue the COVID-19 cocktail. Continue to titrate FiO2 accordingly. Continue Decadron Lovenox and multivitamins. Not clear to me whether the patient received any REM or toci when she was admitted previously to other hospitals for her COVID-19 pneumonia We'll continue to follow. Prognosis is extremely guarded Chest x-ray seems to be worsening. We'll continue to follow. Time with Patient: Less than 30
--- NOTE | 2020-09-03 14:13 | P.PN ---
Subjective Progress Note Date: 09/03/20 This is an 80-year-old female who was recently admitted acute COVID-19 infection as well as COVID-19 pneumonia and is being closely monitored. Patient continues to be hypoxic requiring 15 L high flow. Pulmonary is following. Patient is maintained on Lovenox along with vitamin C and D and zinc supplements and will continue. Patient to continue with bronchodilators as well. Patient is on dexamethasone as well and will continue. Orthopedic surgery following continuing with conservative management of the left wrist she has not a surgical candidate at this time given current situation an acute COVID-19 infection. White blood count today is 14.61, hemoglobin is 12.3, d-dimer is 3.11 Jamie sodium is 148, potassium is 4.5, creatinine slightly improved at 1.2. Patient is on D5 with water and will repeat a.m. labs. 09/01/2020 Patient is seen in follow-up this morning more alert although continues to be lethargic and maintained on 15 L via nonrebreather. Pulmonary following. Patient is maintained on vitamin and zinc supplements along with Lovenox and dexamethasone and will continue. Urine and blood cultures remain negative. Sodium today is 142, potassium is 4.4 and current creatinine is 1.0. Left wrist casting and no swelling noted. 09/02/2020 Patient is seen this morning continues to be maintained on 15 L nonrebreather and per nursing staff is keeping her nonrebreather mask on today but needs redirection as she continues to take it off. Patient continues to be on vitamin and zinc supplements along with Lovenox and dexamethasone. Chest x-ray today shows continued bilateral airspace disease consistent with Covid pneumonia. Pulmonary is following. Had a lengthy discussion with her son Bobby and updated on treatment plan. Continue to monitor and wean FiO2 as tolerated. Patient denies any chest pain or shortness of breath. Patient is not eating very well and needs encouragement with meals. 09/03/2020 Patient is seen this morning and weaning FiO2 as tolerated and currently maintained on 10 L high flow via nasal cannula and maintaining oxygen saturations above 90%. Patient is afebrile and eating minimally although is eating per nursing staff. A continues to need encouragement with this. Pulmonary also following. Empiric antibiotics in the form of IV Zosyn added due to worsening of the chest x-ray. Patient denies any chest pain or palpitations. Will continue with IV fluids as patient is not eating very much and continue to monitor closely. Active Medications Albuterol Sulfate (Albuterol Hfa Inhaler) 2 puff INHALATION RT-Q6H PRN PRN Reason: Shortness Of Breath Or Wheezing Last Admin: 09/02/20 15:10 Dose: 2 puff Documented by: Albuterol Sulfate (Albuterol Hfa Inhaler) 2 puff INHALATION RT-TID [facility] Last Admin: 09/03/20 12:19 Dose: 2 puff Documented by: Ascorbic Acid (Ascorbic Acid 500 Mg Tab) 500 mg PO BID [facility] Last Admin: 09/03/20 08:35 Dose: 500 mg Documented by: Benzocaine (Benzocaine [place] 1 Can) 1 spray MUCOUS MEM QID PRN PRN Reason: Mouth Irritation Cholecalciferol (Cholecalciferol 25 Mcg (1000 Iu) Tablet) 125 mcg PO DAILY [facility] Last Admin: 09/03/20 08:34 Dose: 125 mcg Documented by: Cyanocobalamin (Cyanocobalamin 500 Mcg Tab) 1,000 mcg PO DAILY [facility] Last Admin: 09/03/20 08:34 Dose: 1,000 mcg Documented by: Dexamethasone Sodium Phosphate (Dexamethasone Sod Phosphate 10 Mg/Ml 1 Ml Vial) 6 mg IV DAILY [facility] Last Admin: 09/03/20 08:35 Dose: 6 mg Documented by: Enoxaparin Sodium (Enoxaparin 40 Mg/0.4 Ml Syringe) 40 mg SQ DAILY [facility] Last Admin: 09/03/20 08:35 Dose: 40 mg Documented by: Folic Acid (Folic Acid 1 Mg Tab) 1 mg PO DAILY [facility] Last Admin: 09/03/20 08:35 Dose: 1 mg Documented by: Dextrose/Water (Dextrose 5%-Water Iv Soln) 1,000 mls @ 150 mls/hr IV .Q6H40M [facility] Last Admin: 09/03/20 04:00 Dose: 150 mls/hr Documented by: Piperacillin Sod/Tazobactam (Sod 3.375 gm/ Sodium Chloride) 100 mls @ 25 mls/hr IVPB Q8HR [facility] Miscellaneous Information (Pneumonia Protocol Utilized 1 Each Misc) 1 each PO ONCE PRN PRN Reason: Per Protocol Pantoprazole Sodium (Pantoprazole 40 Mg Tablet) 40 mg PO AC-BRKFST [facility] Last Admin: 09/03/20 08:34 Dose: 40 mg Documented by: Quetiapine Fumarate (Quetiapine 25 Mg Tab) 25 mg PO HS [facility] Last Admin: 09/02/20 19:45 Dose: 25 mg Documented by: Tramadol HCl (Tramadol 50 Mg Tab) 50 mg PO Q8H PRN PRN Reason: Pain Last Admin: 09/02/20 19:44 Dose: 50 mg Documented by: Zinc Sulfate (Zinc Sulfate 220 Mg Cap) 220 mg PO DAILY [facility] Last Admin: 09/03/20 08:34 Dose: 220 mg Documented by: Objective - Vital Signs Vital signs: Vital Signs Temp 97.5 F L 09/03/20 07:00 Pulse 83 09/03/20 07:00 Resp 17 09/03/20 08:00 BP 110/71 09/03/20 07:00 Pulse Ox 95 09/03/20 08:08 Intake & Output 09/02/20 09/03/20 09/03/20 18:59 06:59 18:59 Intake Total 200 Output Total 1001 1350 Balance -801 -1350 Weight 49.895 kg Intake: Oral 200 Output: Urine 1000 1350 Stool 1 Other: Voiding Method Indwelling Catheter Indwelling Catheter # Voids 3 # Bowel Movements 1 1 - Exam Gen: This is a 80-year-old female lethargic although more easily arousable today maintained on 10 L high flow and tolerating and will continue to wean FiO2 as tolerated HEENT: Head is atraumatic, normocephalic. Pupils equal, round. Sclerae is anicteric. NECK: Supple. No JVD. No lymphadenopathy. No thyromegaly. LUNGS: Diminished breath sounds bilaterally with some scattered rhonchi noted. No intercostal retractions. HEART: S1, S2 are muffled ABDOMEN: Soft. Bowel sounds are present. No masses. No tenderness. EXTREMITIES: No pedal edema. No calf tenderness. Left upper extremity sling noted NEUROLOGICAL: Patient is sleeping but arousable, Lethargic and diffusely weak. - Labs CBC & Chem 7: 09/02/20 07:27 09/02/20 07:27 Labs: Abnormal Lab Results - Last 24 Hours (Table) 09/02/20 Range/Units 07:27 Chloride 111 H (96-109) mmol/L Carbon Dioxide 14.6 L (21.6-31.8) mmol/L Anion Gap 12.40 H (4.00-12.00) mmol/L Est GFR (CKD-EPI)AfAm 54.5 L (60.0-200.0) Est GFR (CKD-EPI)NonAf 47.0 L (60.0-200.0) Glucose 145 H (70-110) mg/dL Calcium 7.8 L (8.7-10.3) mg/dL Microbiology - Last 24 Hours (Table) 08/28/20 12:47 Blood Culture - Preliminary Blood No Growth after 120 hours 08/28/20 12:47 Blood Culture - Preliminary Blood No Growth after 120 hours Assessment and Plan Assessment: Acute COVID-19 infection with acute COVID-19 bacterial interstitial pneumonia with acute hypoxic respiratory failure Change in mental status, acute on chronic metabolic encephalopathy Hypernatremia history of recent left wrist fracture Increased creatinine with possible acute kidney injury with acute tubular necrosis with dehydration Possible sepsis, present on admission with elevated plasma lactic acid as well as possible super bacterial pneumonia Elevated LDH Elevated inflammatory markers of COVID-19 Elevated d-dimer without any evidence of acute pulmonary embolism Increased white count Elevated pro calcitonin History of GERD Hypertension Hyperlipidemia history of anxiety, depression No CPR,no code, no vent Recommendations and discussion: Continue with oxygen therapy and monitor for attempts at weaning FiO2 as tolerated. Currently on 10 L high flow nasal cannula. Empiric IV Zosyn was started and will continue to monitor closely patient remains afebrile and will repeat chest x-ray in a few days. Continue with Lovenox, dexamethasone, and vitamin supplements. Pulmonary Is following. Prognosis remains extremely guarded.
[2020-09-03] MEDS: PIPERACILLIN-TAZOBACTAM 3.375 GM in SODIUM CHLORIDE 0.9% 100 ML IVPB SCH (16:11)
[2020-09-03] MEDS: traMADol 50 MG TAB PO PRN (16:12)
[2020-09-03] MEDS ORDERED: HALOPERIDOL LACTATE 5 MG/ML 1 ML VIAL IM STA ×2 (19:23→19:27)
[2020-09-03] MEDS: QUEtiapine 25 MG TAB PO SCH (21:20)
[2020-09-04] MEDS: PIPERACILLIN-TAZOBACTAM 3.375 GM in SODIUM CHLORIDE 0.9% 100 ML IVPB SCH ×4 (02:07→23:25)
[2020-09-04] MEDS: traMADol 50 MG TAB PO PRN ×2 (03:47→13:50)
[2020-09-04] MEDS: DEXTROSE 5% IN WATER 1,000 ML IV SCH ×3 (05:53→18:09)
[2020-09-04] MEDS: ALBUTEROL HFA INHALER INHALATION SCH ×3 (08:11→20:07)
[2020-09-04] MEDS: ENOXAPARIN 40 MG/0.4 ML SYRINGE SQ SCH (08:43)
[2020-09-04] MEDS: PANTOPRAZOLE 40 MG TABLET PO SCH (08:43)
[2020-09-04] MEDS: CHOLECALCIFEROL 25 MCG (1000 IU) TABLET PO SCH (08:43)
[2020-09-04] MEDS: ZINC SULFATE 220 MG CAP PO SCH (08:44)
[2020-09-04] MEDS: CYANOCOBALAMIN 500 MCG TAB PO SCH (08:44)
[2020-09-04] MEDS: FOLIC ACID 1 MG TAB PO SCH (08:44)
[2020-09-04] MEDS: DEXAMETHASONE SOD PHOSPHATE 10 MG/ML 1 ML VIAL IV SCH (08:44)
[2020-09-04] MEDS: ASCORBIC ACID 500 MG TAB PO SCH ×2 (08:44→20:58)
--- NOTE | 2020-09-04 14:16 | P.PN ---
Subjective Progress Note Date: 09/04/20 This is a 80-year-old female patient who recently had two hospitalizations initially at [facility] and was positive for CoVID 19 08/19/2020. She is subsequently discharged home and sustained a fall and was taken to [facility]. She did have a left wrist fracture. She subsequently was discharged from there to [facility] for rehabilitation. She was brought in here to the emergency room yesterday with altered mental status and hypoxemia with oxygen saturations in the 70s. is a very poor historian no information is able to be obtained from her. CT angiogram revealed no evidence of pulmonary embolism. There is extensive pulmonary interstitial infiltrates consider with pneumonia, pulmonary fibrosis. She does have a history of being a heavy smoker and prior to her initial hospitalization at [facility] she was alert and oriented 3 according to family members per nursing staff. Today's chest x- ray shows bilateral airspace disease. Urine culture pending. White count 11.1. Hemoglobin 12.8. D-dimer 1.43. Sodium 148. Potassium 4.7. Creatinine 1.38. Initial lactic acid 3.1 and currently 1.4. Ferritin 82. LDH 1145. C-reactive protein 6.4. Pro-calcitonin 0.20. Jones virus by PCR detected. She was initially requiring nonrebreather mask but maintaining O2 saturations in the 90s. She's currently on 4 L with O2 saturation of 99%. She is resting in bed. She is unable to answer any questions. She is arousable but drowsy and her speech is garbled. She's been initiated on Zosyn and azithromycin. Lovenox for DVT prophylaxis. Decadron and vitamin supplements. Current fluids at 20 ML's per hour. On 08/30/2020 patient seen in follow-up on medical surgical floor, she is resting comfortably in bed, she is currently on partial rebreather mask appears to be breathing comfortable, her pulse ox is 96-97% and I will be further weaned down, she is afebrile, hemodynamically she stable, no complaints of chest discomfort, is being assisted with her meal, and she is asking for chocolate ice cream. Today's chest x-ray showing bilateral airspace disease. Patient remains on azithromycin, dexamethasone 6 mg daily, she is on D5 and water at a rate of 100 ML per hour, and prophylactic dose Lovenox. In addition patient is on Zosyn for for possibility of pneumonia. Today's labs have been reviewed, white blood cell count is 16.7, hemoglobin is 14.3, sodium is up to 153, potassium is 4.9, chloride is 127, CO2 is 15, BUN is 41, creatinine is 1.42, AST has increased slightly and is up at 44, ALT is 49, alk phos is within normal limits, 2 sets of pro-calcitonin levels were negative at 0.20 and 0.18, urinalysis showed turbid urine with trace protein, trace blood, but no definite sign of urinary tract infection, and her COVID-19 PCR was still positive Progress note dated 08/31/2020. The patient is again seen in room 619. Currently, she is on a partial rebreather mask. She appears relatively comfortable. The patient is a no code. She's not receiving any IV fluids at this time. Lab data from today includes a white count of 14.61, hemoglobin 12.3, hematocrit 39.3, and a platelet count of 310,000. D-dimer is 3.11. Sodium 148, potassium 4.5, chlorides 118, CO2 20, anion gap 10, BUN 32, creatinine 1.2. Her LDH is 478, C-reactive protein is 3.1. Chest x-ray from yesterday shows bilateral airspace disease, which could be consistent with coronavirus pneumonia, and/or heart failure. The patient is seen today 09/01/2020 follow-up on the regular medical floor. She is currently resting fairly comfortably in bed. She is requiring FiO2 via nonrebreather mask. She's afebrile. Hemodynamically stable. Blood culture reveals no growth. Urine culture reveals no growth. Sodium 142. Potassium 4.4. Creatinine 1.0. Continued on dexamethasone, Lovenox, vitamin supplements. The patient is seen today 09/02/2020 in follow-up on the regular medical floor. Currently resting in bed. She is maintaining O2 saturation mid 90s on a partial rebreather mask. She's afebrile. Arousable. Blood and urine cultures reveal no growth. White count 12.3. Hemoglobin 12.0. She remains on Lovenox, dexamethasone, vitamin supplements. Chest x-ray continues to show bilateral airspace disease. No pneumothorax. No pleural effusion. The patient was seen today 09/04/2020 in follow-up on the regular medical floor. She is currently resting quite comfortably in bed. Denies any worsening shortness of breath. He is wearing a partial rebreather mask with O2 saturations in the 90s. She's been afebrile. Hemodynamically stable. No new labs today. She remains on Lovenox, Decadron, vitamin supplements. fire extinguisher installer at the bedside. Objective - Vital Signs Vital signs: Vital Signs Temp 98.2 F 09/04/20 07:40 Pulse 83 09/04/20 07:40 Resp 16 09/04/20 07:40 BP 114/67 09/04/20 07:40 Pulse Ox 97 09/04/20 07:40 Intake & Output 09/03/20 09/04/20 09/04/20 18:59 06:59 18:59 Intake Total 10 20 Output Total 250 400 Balance -250 -390 20 Weight 49.895 kg Intake: IV 10 Invasive Line 2 10 Oral 20 Output: Urine 250 400 Other: Voiding Method Indwelling Catheter Indwelling Catheter # Voids 1 # Bowel Movements 1 - Exam GENERAL EXAM: Arousable, frail, lethargic 80-year-old female, on partial rebreather mask, appears comfortable in no apparent distress. HEAD: Normocephalic. EYES: Normal reaction of pupils, equal size. NOSE: Clear with pink turbinates. THROAT: No erythema or exudates. NECK: No masses, no JVD. CHEST: No chest wall deformity. LUNGS: Equal air entry with crackles in the bilateral posterior bases. CVS: S1 and S2 normal with no audible murmur, regular rhythm. ABDOMEN: No hepatosplenomegaly, normal bowel sounds, no guarding or rigidity. SPINE: No scoliosis or deformity SKIN: No rashes CENTRAL NERVOUS SYSTEM: No focal deficits, tone is normal in all 4 extremities. EXTREMITIES: There is no peripheral edema. No clubbing, no cyanosis. Peripheral pulses are intact. - Labs CBC & Chem 7: 09/02/20 07:27 09/02/20 07:27 Labs: Microbiology - Last 24 Hours (Table) 08/28/20 12:47 Blood Culture - Final Blood No Growth after 144 hours 08/28/20 12:47 Blood Culture - Final Blood No Growth after 144 hours Assessment and Plan Assessment: 1 Acute hypoxemic respiratory failure secondary to COVID-19 pneumonia. Unsure of the date the initial diagnosis. 2 Recent admissions to both [facility] and [facility], discharged to [facility] 3 Recent fall with fracture of the left arm/wrist 4 Altered mental status 5 Acute renal failure 6 Elevated inflammatory markers secondary to COVID-19 infection 7 Possible urinary tract infection, culture pending 8 Lactic acidosis, improved 9 Depression, safety associate at the bedside Plan: The patient was seen and evaluated by Dr. Grissom Continue Lovenox, Decadron, vitamin supplements Titrate the FiO2 as tolerated DO NOT RESUSCITATE/DO NOT INTUBATE CODE STATUS Prognosis is guarded May consider hospice/comfort care I, the cosigning physician, performed a history & physical examination of the patient. Lungs sounds with crackles in the bilateral posterior bases. Maintaining good O2 saturations in the 90s on partial rebreather mask. I discussed the assessment and plan of care with my nurse practitioner, Genie Macias. I attest to the above note as dictated by her.
[2020-09-04] MEDS: QUEtiapine 25 MG TAB PO SCH (20:58)
[2020-09-05] MEDS: DEXTROSE 5% IN WATER 1,000 ML IV SCH ×4 (02:05→21:07)
[2020-09-05] MEDS: ALBUTEROL HFA INHALER INHALATION SCH ×3 (08:18→20:22)
[2020-09-05] MEDS: PANTOPRAZOLE 40 MG TABLET PO SCH (08:47)
[2020-09-05] MEDS: ENOXAPARIN 40 MG/0.4 ML SYRINGE SQ SCH (08:47)
[2020-09-05] MEDS: ASCORBIC ACID 500 MG TAB PO SCH ×2 (08:47→21:08)
[2020-09-05] MEDS: CYANOCOBALAMIN 500 MCG TAB PO SCH (08:47)
[2020-09-05] MEDS: ZINC SULFATE 220 MG CAP PO SCH (08:47)
[2020-09-05] MEDS: CHOLECALCIFEROL 25 MCG (1000 IU) TABLET PO SCH (08:47)
[2020-09-05] MEDS: FOLIC ACID 1 MG TAB PO SCH (08:47)
[2020-09-05] MEDS: PIPERACILLIN-TAZOBACTAM 3.375 GM in SODIUM CHLORIDE 0.9% 100 ML IVPB SCH ×2 (12:27→19:21)
[2020-09-05] MEDS: DEXAMETHASONE SOD PHOSPHATE 10 MG/ML 1 ML VIAL IV SCH (12:27)
--- NOTE | 2020-09-05 12:54 | P.PN ---
Subjective Progress Note Date: 09/04/20 Principal diagnosis: Acute COVID-19 infection with acute COVID-19 bacterial interstitial pneumonia with acute hypoxic respiratory failure Change in mental status, acute on chronic metabolic encephalopathy Hypernatremia 80-year-old female who was recently admitted acute COVID-19 infection as well as COVID-19 pneumonia and is being closely monitored. Patient continues to be hypo xic requiring 15 L high flow. Pulmonary is following. Patient is maintained on Lovenox along with vitamin C and D and zinc supplements and will continue. Patient to continue with bronchodilators as well. Patient is on dexamethasone as well and will continue. Orthopedic surgery following continuing with conservative management of the left wrist she has not a surgical candidate at this time given current situation an acute COVID-19 infection. White blood count today is 14.61, hemoglobin is 12.3, d-dimer is 3.11 Jamie sodium is 148, potassium is 4.5, creatinine slightly improved at 1.2. Patient is on D5 with water and will repeat a.m. labs. 09/04/2020 Patient is seen and evaluated in follow-up on the regular medical floor. She is currently resting quite comfortably in bed. Denies any worsening shortness of breath. He is wearing a partial rebreather mask with O2 saturations in the 90s. She's been afebrile. Hemodynamically stable. No new labs today. She remains on Lovenox, Decadron, vitamin supplements. accounting recruiter at the bedside. Objective - Vital Signs Vital signs: Vital Signs Temp 98.2 F 09/04/20 07:40 Pulse 83 09/04/20 07:40 Resp 16 09/04/20 07:40 BP 114/67 09/04/20 07:40 Pulse Ox 97 09/04/20 07:40 Intake & Output 09/03/20 09/04/20 09/04/20 18:59 06:59 18:59 Intake Total 10 Output Total 250 400 Balance -250 -390 Weight 49.895 kg Intake: IV 10 Invasive Line 2 10 Output: Urine 250 400 Other: Voiding Method Indwelling Catheter Indwelling Catheter # Voids 1 # Bowel Movements 1 - Exam Gen: This is a 80-year-old female lethargic although more easily arousable today maintained on 10 L high flow and tolerating and will continue to wean FiO2 as tolerated HEENT: Head is atraumatic, normocephalic. Pupils equal, round. Sclerae is anicteric. NECK: Supple. No JVD. No lymphadenopathy. No thyromegaly. LUNGS: Diminished breath sounds bilaterally with some scattered rhonchi noted. No intercostal retractions. HEART: S1, S2 are muffled ABDOMEN: Soft. Bowel sounds are present. No masses. No tenderness. EXTREMITIES: No pedal edema. No calf tenderness. Left upper extremity sling noted NEUROLOGICAL: Patient is sleeping but arousable, Lethargic and diffusely weak. - Labs CBC & Chem 7: 09/02/20 07:27 09/02/20 07:27 Labs: Microbiology - Last 24 Hours (Table) 08/28/20 12:47 Blood Culture - Final Blood No Growth after 144 hours 08/28/20 12:47 Blood Culture - Final Blood No Growth after 144 hours Assessment and Plan Assessment: Acute COVID-19 infection with acute COVID-19 bacterial interstitial pneumonia with acute hypoxic respiratory failure Change in mental status, acute on chronic metabolic encephalopathy Hypernatremia history of recent left wrist fracture Increased creatinine with possible acute kidney injury with acute tubular necrosis with dehydration Possible sepsis, present on admission with elevated plasma lactic acid as well as possible super bacterial pneumonia Elevated LDH Elevated inflammatory markers of COVID-19 Elevated d-dimer without any evidence of acute pulmonary embolism Increased white count Elevated pro calcitonin History of GERD Hypertension Hyperlipidemia history of anxiety, depression No CPR,no code, no vent Recommendations and discussion: Continue with oxygen therapy and monitor for attempts at weaning FiO2 as tolerated. Currently on 10 L high flow nasal cannula. Empiric IV Zosyn was started and will continue to monitor closely patient remains afebrile and will repeat chest x-ray in a few days. Continue with Lovenox, dexamethasone, and vitamin supplements. Pulmonary Is following. Prognosis remains extremely guarded.
--- NOTE | 2020-09-05 15:55 | P.PN ---
Subjective Progress Note Date: 09/05/20 This is a 80-year-old female patient who recently had two hospitalizations initially at [facility] and was positive for CoVID 19 08/19/2020. She is subsequently discharged home and sustained a fall and was taken to [facility]. She did have a left wrist fracture. She subsequently was discharged from there to [facility] for rehabilitation. She was brought in here to the emergency room yesterday with altered mental status and hypoxemia with oxygen saturations in the 70s. is a very poor historian no information is able to be obtained from her. CT angiogram revealed no evidence of pulmonary embolism. There is extensive pulmonary interstitial infiltrates consider with pneumonia, pulmonary fibrosis. She does have a history of being a heavy smoker and prior to her initial hospitalization at [facility] she was alert and oriented 3 according to family members per nursing staff. Today's chest x- ray shows bilateral airspace disease. Urine culture pending. White count 11.1. Hemoglobin 12.8. D-dimer 1.43. Sodium 148. Potassium 4.7. Creatinine 1.38. Initial lactic acid 3.1 and currently 1.4. Ferritin 82. LDH 1145. C-reactive protein 6.4. Pro-calcitonin 0.20. Jones virus by PCR detected. She was initially requiring nonrebreather mask but maintaining O2 saturations in the 90s. She's currently on 4 L with O2 saturation of 99%. She is resting in bed. She is unable to answer any questions. She is arousable but drowsy and her speech is garbled. She's been initiated on Zosyn and azithromycin. Lovenox for DVT prophylaxis. Decadron and vitamin supplements. Current fluids at 20 ML's per hour. On 08/30/2020 patient seen in follow-up on medical surgical floor, she is resting comfortably in bed, she is currently on partial rebreather mask appears to be breathing comfortable, her pulse ox is 96-97% and I will be further weaned down, she is afebrile, hemodynamically she stable, no complaints of chest discomfort, is being assisted with her meal, and she is asking for chocolate ice cream. Today's chest x-ray showing bilateral airspace disease. Patient remains on azithromycin, dexamethasone 6 mg daily, she is on D5 and water at a rate of 100 ML per hour, and prophylactic dose Lovenox. In addition patient is on Zosyn for for possibility of pneumonia. Today's labs have been reviewed, white blood cell count is 16.7, hemoglobin is 14.3, sodium is up to 153, potassium is 4.9, chloride is 127, CO2 is 15, BUN is 41, creatinine is 1.42, AST has increased slightly and is up at 44, ALT is 49, alk phos is within normal limits, 2 sets of pro-calcitonin levels were negative at 0.20 and 0.18, urinalysis showed turbid urine with trace protein, trace blood, but no definite sign of urinary tract infection, and her COVID-19 PCR was still positive Progress note dated 08/31/2020. The patient is again seen in room 619. Currently, she is on a partial rebreather mask. She appears relatively comfortable. The patient is a no code. She's not receiving any IV fluids at this time. Lab data from today includes a white count of 14.61, hemoglobin 12.3, hematocrit 39.3, and a platelet count of 310,000. D-dimer is 3.11. Sodium 148, potassium 4.5, chlorides 118, CO2 20, anion gap 10, BUN 32, creatinine 1.2. Her LDH is 478, C-reactive protein is 3.1. Chest x-ray from yesterday shows bilateral airspace disease, which could be consistent with coronavirus pneumonia, and/or heart failure. The patient is seen today 09/01/2020 follow-up on the regular medical floor. She is currently resting fairly comfortably in bed. She is requiring FiO2 via nonrebreather mask. She's afebrile. Hemodynamically stable. Blood culture reveals no growth. Urine culture reveals no growth. Sodium 142. Potassium 4.4. Creatinine 1.0. Continued on dexamethasone, Lovenox, vitamin supplements. The patient is seen today 09/02/2020 in follow-up on the regular medical floor. Currently resting in bed. She is maintaining O2 saturation mid 90s on a partial rebreather mask. She's afebrile. Arousable. Blood and urine cultures reveal no growth. White count 12.3. Hemoglobin 12.0. She remains on Lovenox, dexamethasone, vitamin supplements. Chest x-ray continues to show bilateral airspace disease. No pneumothorax. No pleural effusion. The patient was seen today 09/04/2020 in follow-up on the regular medical floor. She is currently resting quite comfortably in bed. Denies any worsening shortness of breath. He is wearing a partial rebreather mask with O2 saturations in the 90s. She's been afebrile. Hemodynamically stable. No new labs today. She remains on Lovenox, Decadron, vitamin supplements. legal support manager at the bedside. The patient is seen today 09/05/2020 in follow-up on the regular medical floor. She is arousable but drifts off easily. She has been refusing to eat. Refusing IV restarts. She is still on 15 L high flow nasal cannula to maintain O2 saturations in the 90s. Blood and urine cultures reveal no growth. No new labs today. Objective - Vital Signs Vital signs: Vital Signs Temp 97.4 F L 09/05/20 13:27 Pulse 99 09/05/20 13:27 Resp 20 09/05/20 13:27 BP 109/72 09/05/20 13:27 Pulse Ox 93 L 09/05/20 13:27 Intake & Output 09/04/20 09/05/20 09/05/20 18:59 06:59 18:59 Intake Total 20 Output Total 800 Balance 20 -800 Intake: Oral 20 Output: Urine 800 Other: Voiding Method Indwelling Catheter Indwelling Catheter Indwelling Catheter - Exam GENERAL EXAM: Arousable, frail, lethargic 80-year-old female, on 15 L high flow nasal cannula, appears comfortable in no apparent distress. HEAD: Normocephalic. EYES: Normal reaction of pupils, equal size. NOSE: Clear with pink turbinates. THROAT: No erythema or exudates. NECK: No masses, no JVD. CHEST: No chest wall deformity. LUNGS: Equal air entry with crackles in the bilateral posterior bases. CVS: S1 and S2 normal with no audible murmur, regular rhythm. ABDOMEN: No hepatosplenomegaly, normal bowel sounds, no guarding or rigidity. SPINE: No scoliosis or deformity SKIN: No rashes CENTRAL NERVOUS SYSTEM: No focal deficits, tone is normal in all 4 extremities. EXTREMITIES: There is no peripheral edema. No clubbing, no cyanosis. Peripheral pulses are intact. - Labs CBC & Chem 7: 09/02/20 07:27 09/02/20 07:27 Assessment and Plan Assessment: 1 Acute hypoxemic respiratory failure secondary to COVID-19 pneumonia. Unsure of the date the initial diagnosis. 2 Recent admissions to both [facility] and [facility], discharged to [facility] 3 Recent fall with fracture of the left arm/wrist 4 Altered mental status 5 Acute renal failure 6 Elevated inflammatory markers secondary to COVID-19 infection 7 Possible urinary tract infection, culture pending 8 Lactic acidosis, improved 9 Depression, sleeve setter safety stitch at the bedside Plan: The patient was seen and evaluated by Dr. Grissom Continue Lovenox, Decadron, vitamin supplements Titrate the FiO2 as tolerated DO NOT RESUSCITATE/DO NOT INTUBATE CODE STATUS Prognosis is guarded Family may consider hospice/comfort care I, the cosigning physician, performed a history & physical examination of the pa tient. Lungs sounds with crackles in the bilateral posterior bases. Maintaining good O2 saturations in the 90s on 15 L high flow nasal cannula. I discussed the assessment and plan of care with my nurse practitioner, Genie Macias. I attest to the above note as dictated by her.
[2020-09-05] MEDS: traMADol 50 MG TAB PO PRN ×2 (19:39)
[2020-09-05] MEDS: QUEtiapine 25 MG TAB PO SCH (21:08)
[2020-09-06] MEDS: PIPERACILLIN-TAZOBACTAM 3.375 GM in SODIUM CHLORIDE 0.9% 100 ML IVPB SCH ×2 (01:50→09:10)
[2020-09-06] MEDS: DEXTROSE 5% IN WATER 1,000 ML IV SCH ×4 (05:08→20:42)
[2020-09-06] MEDS: ALBUTEROL HFA INHALER INHALATION SCH ×3 (07:10→20:26)
[2020-09-06] MEDS: DEXAMETHASONE SOD PHOSPHATE 10 MG/ML 1 ML VIAL IV SCH (09:22)
[2020-09-06] MEDS: ENOXAPARIN 40 MG/0.4 ML SYRINGE SQ SCH (09:22)
[2020-09-06] MEDS: ASCORBIC ACID 500 MG TAB PO SCH ×2 (09:22→19:59)
[2020-09-06] MEDS: CYANOCOBALAMIN 500 MCG TAB PO SCH (09:22)
[2020-09-06] MEDS: FOLIC ACID 1 MG TAB PO SCH (09:22)
[2020-09-06] MEDS: ZINC SULFATE 220 MG CAP PO SCH (09:23)
[2020-09-06] MEDS: CHOLECALCIFEROL 25 MCG (1000 IU) TABLET PO SCH (09:23)
[2020-09-06] MEDS: PANTOPRAZOLE 40 MG TABLET PO SCH (09:23)
[2020-09-06] MEDS: traMADol 50 MG TAB PO PRN ×2 (12:08→19:59)
[2020-09-06] MEDS: dexAMETHasone 2 MG TAB PO SCH (13:54)
--- NOTE | 2020-09-06 14:03 | P.CN ---
Psychiatric Consult - . Consult date: 09/06/20 Consult:: IDENTIFYING DATA: This patient is a , retired, 80 year-old female who was admitted for hypoxemia and altered mental status from [facility] HISTORY OF PRESENT ILLNESS: The patient presented to the hospital on 08/28/2020, brought in by EMS for altered mental status and had hypoxemia with oxygen saturations in the 70s. The patient was recently hospitalized at [facility] and was positive for COVID-19 on 08/19/2020. She was subsequently discharged home and sustained a fall and was taken to [facility]. She also had a left wrist fracture. She was subsequently discharged to [facility] for rehabilitation prior to this admission. The patient has been being managed for acute hypoxemic respiratory failure secondary to COVID-19 pneumonia. On 09/03/2020, the patient was observed by the nurse to have her arm bandage wrapped around her neck and stated that she was trying to kill herself and she'll longer wanted to live. The nurse aide and the nurse attempted to loosen the patient's grounds maintenance worker on the bandage but were unable to do so. The bandage had to be cut from around her neck. After the bandage was removed, the patient attempted to a 68 herself with her oxygen tubing. The patient was stopped but then became combative and was hitting, kicking, and scratching. During this time, the patient kept verbalizing that she wanted to . The patient was given Haldol 1 mg IM. The patient is currently on a one-to-one safety lamp keeper order. At this time, the patient appears hesitant to cooperate in the psychiatric interview. She does admit that she has been feeling increasingly depressed and has no will to live. She expresses that she is not sleeping or eating well. She endorses suicidal ideation and intention but with no plan. She is currently not reporting any homicidal ideation, intention, and/or plan. The patient endorses significant symptoms depression including hopelessness, helplessness, low appetite, difficulty sleeping, and a strong desire to . She is not reporting any significant symptoms of jodie at this time. She reports no history of increased goal-directed activity, impulsivity, or grandiosity. She is currently not reporting any auditory or visual hallucinations. She denies any paranoia or other delusions. Collateral information was provided by the patient's son Bobby Mcfarlane with permission granted by the patient. The patient's son reports that the patient h as been expressing worsening depression over the past year ever since her . The patient was reportedly with this for 25-30 years and him 2 years ago because he was diagnosed with cancer. He lost his sanz with cancer in June 2019. 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 The patient's son reports that the patient has not had any prior attempts at suicide. PAST PSYCHIATRIC HISTORY: Patient has a a history of anxiety. Patient is currently on a regimen of Seroquel 25 mg at bedtime. She was reportedly on Valium in the past. The patient's son reports that the patient has not had any previous inpatient psychiatric hospitalizations. The patient's son reports that the patient has been receiving counseling services over the phone but has no formal outpatient psychiatric follow-up. Patient's son denies the patient has had any prior attempts at suicide. PAST MEDICAL HISTORY: Past Medical History: Unable to Obtain, GERD/Reflux, Hyperlipidemia, Hypertension, Respiratory Disorder Additional Past Medical History / Comment(s): Left wrist Fx, Covid positive, History of Any Multi-Drug Resistant Organisms: Unobtainable Past Surgical History: Unable to Obtain Past Psychological History: Anxiety, Depression Smoking Status: Unknown if ever smoked Past Alcohol Use History: Unable to Obtain Past Drug Use History: Unable to Obtain ALLERGIES: Clopidogrel, hydrocodone CHEMICAL DEPENDENCY HISTORY: The patient denies any tobacco, alcohol, or illicit drug use. FAMILY PSYCHIATRIC/SUBSTANCE USE HISTORY: No significant history. SOCIAL HISTORY: Patient was born and raised in [facility]. The patient has been twice. Her first divorce was in the 1970s. She was with her previous partner until he in June 2019 after being with him for 25 years. She him 1 year prior to him passing after his fight with cancer. The patient has 4 children and 4 grandchildren. She previously worked as a school of nursing director. She does not report any catholic that she follows. MENTAL STATUS EXAM: General Appearance: Patient appears to be stated age is alert, pleasant, and i ntermittently cooperative. Patient appears to have fair hygiene and grooming wearing hospital gown with fair eye contact. Patient is currently wearing a nonrebreather. Behavior: Patient is calmly lying in bed without any agitated behavior. Speech: Patient's speech is fluent and nonpressured. Mood/Affect: Patient reports their mood is "depressed", affect is congruent, irritable Suicidality/Homicidality: Patient endorses suicidal ideation and intention but is unable to verbalize any plan. She denies any homicidal ideation, intention, or plan. Perceptions: Patient denies any visual hallucinations and denies any auditory hallucinations Though content/process: There is no evidence of any delusional thought content and thought process is linear and goal-directed. Memory and concentration: AOX3, grossly intact for the purposes of this session. Can spell "WORLD" backwards Judgment and insight: poor IMPRESSIONS: Major depressive disorder, recurrent, severe, with suicidal ideation Anxiety disorder, unspecified Acute hypoxemic aspiratory failure secondary to COVID-19 pneumonia Acute renal failure, resolving Possible urinary tract infection PLAN: -At this time patient DOES meet criteria for inpatient geriatric psychiatric admission or Palliative or Hospice care due to severity of her medical condition. -Delirium precautions recommended with patient including - avoiding use of narcotics and GREASER OPERATOR sedatives, limit anticholinergic medications when possible, frequent re-orientation, minimize use of restraints, open window shades during the day and close them at night -Would recommend the following medication changes/additions: Start Remeron 7.5 mg by mouth at bedtime for depression/insomnia/low appetite. Continue Seroquel 25 mg at bedtime for mood stabilization/insomnia. -Continue 1:1 sitter for safety -Cannot leave AMA at this time. Patient will need a petition and certification if attempting to leave AMA. -Will continue to follow along 09/06/20 13:44
--- NOTE | 2020-09-06 14:21 | P.PN ---
Progress Note - Text Progress Note Date: 09/06/20 Sugar tong splint was removed from left arm. While examining skin, small skin tear observed dorsally on left wrist. No concerns for infection, no signs of bone through skin. Radial pulses present in left wrist. Cap refill <3 sec. Ecchymosis evident in left wrist. Cast sleeve applied to left arm. Cast padding applied. Volar splint applied. Wrist held in cocked position. Cast covered with another layer of cast padding. 2 Zhao bandages applied. Patient currently has COVID-19. Discussed with patient the potential for surgery in the future. Patient needs to become more medically stable before discussing surgery.
--- NOTE | 2020-09-06 14:51 | P.PN ---
Subjective Progress Note Date: 09/06/20 This is an 80-year-old female who was recently admitted acute COVID-19 infection as well as COVID-19 pneumonia and is being closely monitored. Patient continues to be hypoxic requiring 15 L high flow. Pulmonary is following. Patient is maintained on Lovenox along with vitamin C and D and zinc supplements and will continue. Patient to continue with bronchodilators as well. Patient is on dexamethasone as well and will continue. Orthopedic surgery following continuing with conservative management of the left wrist she has not a surgical candidate at this time given current situation an acute COVID-19 infection. White blood count today is 14.61, hemoglobin is 12.3, d-dimer is 3.11 Jamie sodium is 148, potassium is 4.5, creatinine slightly improved at 1.2. Patient is on D5 with water and will repeat a.m. labs. 09/01/2020 Patient is seen in follow-up this morning more alert although continues to be lethargic and maintained on 15 L via nonrebreather. Pulmonary following. Patient is maintained on vitamin and zinc supplements along with Lovenox and dexamethasone and will continue. Urine and blood cultures remain negative. Sodium today is 142, potassium is 4.4 and current creatinine is 1.0. Left wrist casting and no swelling noted. 09/02/2020 Patient is seen this morning continues to be maintained on 15 L nonrebreather and per nursing staff is keeping her nonrebreather mask on today but needs redirection as she continues to take it off. Patient continues to be on vitamin and zinc supplements along with Lovenox and dexamethasone. Chest x-ray today shows continued bilateral airspace disease consistent with Covid pneumonia. Pulmonary is following. Had a lengthy discussion with her son Bobby and updated on treatment plan. Continue to monitor and wean FiO2 as tolerated. Patient denies any chest pain or shortness of breath. Patient is not eating very well and needs encouragement with meals. 09/03/2020 Patient is seen this morning and weaning FiO2 as tolerated and currently maintained on 10 L high flow via nasal cannula and maintaining oxygen saturations above 90%. Patient is afebrile and eating minimally although is eating per nursing staff. A continues to need encouragement with this. Pulmonary also following. Empiric antibiotics in the form of IV Zosyn added due to worsening of the chest x-ray. Patient denies any chest pain or palpitations. Will continue with IV fluids as patient is not eating very much and continue to monitor closely. 09/04/2020 Patient is seen and evaluated in follow-up on the regular medical floor. She is currently resting quite comfortably in bed. Denies any worsening shortness of breath. He is wearing a partial rebreather mask with O2 saturations in the 90s. She's been afebrile. Hemodynamically stable. No new labs today. She remains on Lovenox, Decadron, vitamin supplements. general car yard supervisor at the bedside. 09/06/2020 Patient is seen in follow-up this morning currently maintained on nasal cannula along with nonrebreather at 15 L and maintaining oxygen saturations of 99% and discussed with nursing staff about weaning FiO2. Patient states she is not suicidal and does not want to hurt herself and states "keep me here please want to be safe". Patient had an episode of suicide attempt on Sunday by wrapping her Zhao wraps and oxygen tubing around her neck making multiple statements of wanting to in a suicide sitter was placed. Consulted psychiatry for further evaluation and recommend continue health and safety director at the bedside. Had a lengthy discussion with son Bobby again about this event and treatments and will touch base with him tomorrow to let him know what psychiatry has said. I believe ps ychiatry notified and discussed the case with Bobby already. Patient has no IV and will switch dexamethasone to oral and will continue to encourage oral fluids and food and monitor closely. Patient remains a no code with the possibility of hospice status continues to deteriorate. This was discussed in detail with all of the family members per her son Bobby. Review of systems: Constitutional: fatigue, no reports of fever, or chills Cardiovascular: No reports of chest pain or palpitations Respiratory: No reports of shortness of breath or cough GI: No reports of nausea, vomiting, or diarrhea : No reports of dysuria or retention Neurovascular: reports weakness All medications have been reviewed Objective - Vital Signs Vital signs: Vital Signs Temp 97.5 F L 09/06/20 07:00 Pulse 89 09/06/20 07:00 Resp 16 09/06/20 07:00 BP 102/63 09/06/20 07:00 Pulse Ox 99 09/06/20 11:09 Intake & Output 09/05/20 09/06/20 09/06/20 18:59 06:59 18:59 Intake Total 0 50 100 Output Total 201 Balance 0 -151 100 Intake: Oral 0 50 100 Output: Urine 200 Stool 1 Other: Voiding Method Indwelling Catheter Indwelling Catheter - Exam Gen: This is a 80-year-old female lethargic although more easily arousable today maintained on 15 L high flow and tolerating and will continue to wean FiO2 as tolerated HEENT: Head is atraumatic, normocephalic. Pupils equal, round. Sclerae is anicteric. NECK: Supple. No JVD. No lymphadenopathy. No thyromegaly. LUNGS: Diminished breath sounds bilaterally with some scattered rhonchi noted. No intercostal retractions. HEART: S1, S2 are muffled ABDOMEN: Soft. Bowel sounds are present. No masses. No tenderness. EXTREMITIES: No pedal edema. No calf tenderness. Left upper extremity sling noted NEUROLOGICAL: Patient is sleeping but arousable, Lethargic and diffusely weak. - Labs CBC & Chem 7: 09/02/20 07:27 09/02/20 07:27 Assessment and Plan Assessment: Acute COVID-19 infection with acute COVID-19 bacterial interstitial pneumonia with acute hypoxic respiratory failure Change in mental status, acute on chronic metabolic encephalopathy Recent suicide attempt Hypernatremia history of recent left wrist fracture Increased creatinine with possible acute kidney injury with acute tubular necrosis with dehydration Possible sepsis, present on admission with elevated plasma lactic acid as well as possible super bacterial pneumonia Elevated LDH Elevated inflammatory markers of COVID-19 Elevated d-dimer without any evidence of acute pulmonary embolism Increased white count Elevated pro calcitonin History of GERD Hypertension Hyperlipidemia history of anxiety, depression No CPR,no code, no vent Recommendations and discussion: Continue with oxygen therapy and monitor for attempts at weaning FiO2 as tolerated. Currently on 15 L high flow nasal cannula and nonrebreather at 99% oxygen saturation. Patient is refusing IV and antibiotics have been discontinued and dexamethasone changed to oral and continue to encourage oral intake as patient is not eating. Psychiatry evaluated the patient and continue suicide sitter and health and safety director at the bedside. Discussed with the family about treatment plan and family are leaning more towards hospice and being made comfortable and told the son Bobby that I would discuss and update him tomorrow when psychiatry has evaluated the patient. Continue with Lovenox, dexamethasone, and vitamin supplements. Pulmonary Is following. Prognosis remains extremely guarded.
--- NOTE | 2020-09-06 15:28 | P.PN ---
Subjective Progress Note Date: 09/06/20 On today's evaluation of 09/16/2020, I'm seeing this patient for a follow-up. She is 80-year-old female patient who has an acute hypoxic respiratory failure secondary to obesity-related pneumonia. The patient is currently on a Ventimask at 15 L. She is laying comfortably in bed. No signs of any respiratory distress at this point in time. She remains on Decadron 6 mg daily the patient is on Lovenox for DVT prophylaxis. Patient's blood work shows a serum bicarb of 14, anion gap of 12, creatinine of 1.1 with a BUN of 22, the patient was a dose of 12.3. Patient will use earlier and currently he is much more reoriented and she is aware of her place and the year and the time. She was seen by psychiatry the patient was started on Remeron 7.5 mg at bedtime for depression, insomnia and low appetite. She was also asked to continue Seroquel 25 mg bedtime for mood stabilization and insomnia. She has a significant bedside. She is a DNR/DNI CODE STATUS. Her breathing is nonlabored. Significant cough or sputum production. She is arousable. Oral intake is quite low and minimal at this point in time. Objective - Vital Signs Vital signs: Vital Signs Temp 97.5 F L 09/06/20 07:00 Pulse 89 09/06/20 07:00 Resp 16 09/06/20 07:00 BP 102/63 09/06/20 07:00 Pulse Ox 99 09/06/20 11:09 Intake & Output 09/05/20 09/06/20 09/06/20 18:59 06:59 18:59 Intake Total 0 50 100 Output Total 201 Balance 0 -151 100 Intake: Oral 0 50 100 Output: Urine 200 Stool 1 Other: Voiding Method Indwelling Catheter Indwelling Catheter - Exam GENERAL EXAM: Arousable, frail, lethargic 80-year-old female, on 15 L high flow nasal cannula, appears comfortable in no apparent distress. HEAD: Normocephalic. EYES: Normal reaction of pupils, equal size. NOSE: Clear with pink turbinates. THROAT: No erythema or exudates. NECK: No masses, no JVD. CHEST: No chest wall deformity. LUNGS: Equal air entry with crackles in the bilateral posterior bases. CVS: S1 and S2 normal with no audible murmur, regular rhythm. ABDOMEN: No hepatosplenomegaly, normal bowel sounds, no guarding or rigidity. SPINE: No scoliosis or deformity SKIN: No rashes CENTRAL NERVOUS SYSTEM: No focal deficits, tone is normal in all 4 extremities. EXTREMITIES: There is no peripheral edema. No clubbing, no cyanosis. Peripheral pulses are intact. - Labs CBC & Chem 7: 09/02/20 07:27 09/02/20 07:27 Assessment and Plan Plan: 1 Acute hypoxemic respiratory failure secondary to COVID-19 pneumonia. Unsure of the date the initial diagnosis. The patient remains on Decadron 6 mg by mouth daily. The patient is also on a 15 L nonrebreather facemask, 100%. In addition to 15 L NC Her current pulse ox is 85%. She could be obviously weaned down to a lower level of FiO2.The chest x-ray from 09/02/2020 shows bilateral pulmonary infiltrates with a peripheral distribution. This chest x-ray followed up by repeated. 2 Recent admissions to both [facility] and [facility], discharged to [facility] 3 Recent fall with fracture of the left arm/wrist 4 Altered mental status, improving 5 Acute renal failure, recovered 6 Elevated inflammatory markers secondary to COVID-19 infection 7 Possible urinary tract infection, culture pending 8 Lactic acidosis, improved 9 Depression, clinical safety specialist at the bedside Plan: History x-ray in a.m. Repeat implemented markers in a.m. Continue Lovenox, Decadron, vitamin supplements Titrate the FiO2 as tolerated DO NOT RESUSCITATE/DO NOT INTUBATE CODE STATUS Prognosis is guarded Psychiatry input is appreciated Advance diet if possible She is currently on a combination of Seroquel and Remeron Keep the sitter at the bedside one-to-one depression precautions Family may consider hospice/comfort care
[2020-09-06] MEDS: QUEtiapine 25 MG TAB PO SCH (19:59)
[2020-09-06] MEDS: MIRTAZAPINE 15 MG TAB PO SCH (20:00)
--- NOTE | 2020-09-07 08:22 | XR ---
EXAMINATION TYPE: XR chest 1V portable DATE OF EXAM: 09/07/2020 CLINICAL HISTORY: COVID . TECHNIQUE: Portable frontal view of the chest. COMPARISON: 09/02/2020 FINDINGS: Thoracic stimulator lead. Cardiac mediastinal silhouette normal. There are bilateral inters titial multifocal patchy opacities, worse peripherally, redemonstrated from 09/02/2020. There is mildl y improved aeration at the right lung base versus prior comparison. There is no pleural effusion or p neumothorax. IMPRESSION: Mildly improved aeration at the right lung base versus 09/02/2020.
[2020-09-07] MEDS: ALBUTEROL HFA INHALER INHALATION SCH ×3 (08:27→20:30)
[2020-09-07] MEDS: CYANOCOBALAMIN 500 MCG TAB PO SCH (09:25)
[2020-09-07] MEDS: ASCORBIC ACID 500 MG TAB PO SCH ×2 (09:26→20:38)
[2020-09-07] MEDS: FOLIC ACID 1 MG TAB PO SCH (09:26)
[2020-09-07] MEDS: dexAMETHasone 2 MG TAB PO SCH (09:26)
[2020-09-07] MEDS: traMADol 50 MG TAB PO PRN ×2 (09:26→22:57)
[2020-09-07] MEDS: ZINC SULFATE 220 MG CAP PO SCH (09:26)
[2020-09-07] MEDS: PANTOPRAZOLE 40 MG TABLET PO SCH (09:26)
[2020-09-07] MEDS: CHOLECALCIFEROL 25 MCG (1000 IU) TABLET PO SCH (09:26)
[2020-09-07] MEDS: ENOXAPARIN 40 MG/0.4 ML SYRINGE SQ SCH (09:28)
[2020-09-07] MEDS: DEXTROSE 5% IN WATER 1,000 ML IV SCH ×2 (10:24→20:37)
[2020-09-07 12:45] LABS: C Reactive Protein 11.4 mg/dL (0.0-0.8)
--- NOTE | 2020-09-07 12:47 | P.PN ---
Progress Note - Text Progress Note Date: 09/07/20 Interval History: Patient was seen resting in bed comfortably and was directable and agreeable to speak with the inspector automatic typewriter in her room. At this time, the patient continues endorse a desire to . She acknowledges that she feels like her time is up on this world. She has been intermittently adherent with her prescribed medications. She is currently not endorsing any homicidal ideation, intention, and/or plan. She reports that she is sleeping and eating better today. She is calm and cooperative today. She is otherwise not reporting any significant side effects of the medications. She reports no auditory or visual hallucinations. She denies any paranoia or other delusions. Mental Status Exam: General Appearance: Patient appears to be stated age is alert, directable, and cooperative. Fair hygiene and grooming. Good eye contact. Currently wearing her nonrebreather. Behavior: Patient is calmly seated without any agitated behavior. Psychomotor activity appears normal. Eye contact is appropriate. Speech: Patient's speech is fluent and nonpressured. Her low in volume, nonspo ntaneous, but otherwise with normal tone. Mood/Affect: Mood is improving mildly, affect is congruent and constricted. Suicidality/Homicidality: Patient continues to endorse suicidal ideation. She reports no homicidal ideation, intention, and/or plan. Perceptions: Patient denies any visual hallucinations and denies any auditory hallucinations Though content/process: There is no evidence of any delusional thought content and thought process is linear and goal-directed. Memory and concentration: AOX3, grossly intact for the purposes of this session Judgment and insight: Fair Assessment Major depressive disorder, recurrent, severe, with suicidal ideation Anxiety disorder, unspecified Acute hypoxemic aspiratory failure secondary to COVID-19 pneumonia Acute renal failure, resolving PLAN: -At this time patient DOES meet criteria for inpatient geriatric psychiatric admission. It will be difficult to find placement for geriatric psychiatry given her COVID status. Palliative or Hospice care are suitable alternatives due to the severity of her medical condition. -Delirium precautions recommended with patient including - avoiding use of narcotics and SPORTS MANAGEMENT PROFESSOR sedatives, limit anticholinergic medications when possible, frequent re-orientation, minimize use of restraints, open window shades during the day and close them at night -Would recommend the following medication changes/additions: Continue Remeron 7.5 mg by mouth at bedtime for depression/insomnia/low appetite. Continue Seroquel 25 mg by mouth at bedtime for mood stabilization/insomnia. -Continue 1:1 sitter for safety -Cannot leave AMA at this time. Patient will need a petition and certification if attempting to leave AMA. -Will continue to follow along
--- NOTE | 2020-09-07 15:27 | P.PN ---
Subjective Progress Note Date: 09/07/20 This is an 80-year-old female who was recently admitted acute COVID-19 infection as well as COVID-19 pneumonia and is being closely monitored. Patient continues to be hypoxic requiring 15 L high flow. Pulmonary is following. Patient is maintained on Lovenox along with vitamin C and D and zinc supplements and will continue. Patient to continue with bronchodilators as well. Patient is on dexamethasone as well and will continue. Orthopedic surgery following continuing with conservative management of the left wrist she has not a surgical candidate at this time given current situation an acute COVID-19 infection. White blood count today is 14.61, hemoglobin is 12.3, d-dimer is 3.11 Jamie sodium is 148, potassium is 4.5, creatinine slightly improved at 1.2. Patient is on D5 with water and will repeat a.m. labs. 09/01/2020 Patient is seen in follow-up this morning more alert although continues to be lethargic and maintained on 15 L via nonrebreather. Pulmonary following. Patient is maintained on vitamin and zinc supplements along with Lovenox and dexamethasone and will continue. Urine and blood cultures remain negative. Sodium today is 142, potassium is 4.4 and current creatinine is 1.0. Left wrist casting and no swelling noted. 09/02/2020 Patient is seen this morning continues to be maintained on 15 L nonrebreather and per nursing staff is keeping her nonrebreather mask on today but needs redirection as she continues to take it off. Patient continues to be on vitamin and zinc supplements along with Lovenox and dexamethasone. Chest x-ray today shows continued bilateral airspace disease consistent with Covid pneumonia. Pulmonary is following. Had a lengthy discussion with her son Bobby and updated on treatment plan. Continue to monitor and wean FiO2 as tolerated. Patient denies any chest pain or shortness of breath. Patient is not eating very well and needs encouragement with meals. 09/03/2020 Patient is seen this morning and weaning FiO2 as tolerated and currently maintained on 10 L high flow via nasal cannula and maintaining oxygen saturations above 90%. Patient is afebrile and eating minimally although is eating per nursing staff. A continues to need encouragement with this. Pulmonary also following. Empiric antibiotics in the form of IV Zosyn added due to worsening of the chest x-ray. Patient denies any chest pain or palpitations. Will continue with IV fluids as patient is not eating very much and continue to monitor closely. 09/04/2020 Patient is seen and evaluated in follow-up on the regular medical floor. She is currently resting quite comfortably in bed. Denies any worsening shortness of breath. He is wearing a partial rebreather mask with O2 saturations in the 90s. She's been afebrile. Hemodynamically stable. No new labs today. She remains on Lovenox, Decadron, vitamin supplements. mess cook at the bedside. 09/06/2020 Patient is seen in follow-up this morning currently maintained on nasal cannula along with nonrebreather at 15 L and maintaining oxygen saturations of 99% and discussed with nursing staff about weaning FiO2. Patient states she is not suicidal and does not want to hurt herself and states "keep me here please want to be safe". Patient had an episode of suicide attempt on Sunday by wrapping her Zhao wraps and oxygen tubing around her neck making multiple statements of wanting to in a suicide sitter was placed. Consulted psychiatry for further evaluation and recommend continue aviation safety inspector at the bedside. Had a lengthy discussion with son Bobby again about this event and treatments and will touch base with him tomorrow to let him know what psychiatry has said. I believe ps ychiatry notified and discussed the case with Bobby already. Patient has no IV and will switch dexamethasone to oral and will continue to encourage oral fluids and food and monitor closely. Patient remains a no code with the possibility of hospice status continues to deteriorate. This was discussed in detail with all of the family members per her son Bobby. 09/07/2020 Patient is seen in follow-up much more alert and awake having conversation with staff members and is being followed by psychiatry with a sitter at the bedside for suicide precautions. Patient continues on 15 L partial rebreather along with nasal cannula in the low 90s and discussed with nursing staff about weaning as tolerated. Chest x-ray shows continues to show patchy infiltrates with mild improvement in aeration. Patient is refusing medication today and still continues with no IV and family is aware of this. Nursing staff attempting medications as she will allow it. Patient denies any suicidal thoughts of wanting to harm herself or others. Review of systems: Constitutional: fatigue, no reports of fever, or chills Cardiovascular: No reports of chest pain or palpitations Respiratory: No reports of shortness of breath or cough GI: No reports of nausea, vomiting, or diarrhea : No reports of dysuria or retention Neurovascular: reports weakness All medications have been reviewed Objective - Vital Signs Vital signs: Vital Signs Temp 98.1 F 09/07/20 07:00 Pulse 67 09/07/20 07:00 Resp 18 09/07/20 07:00 BP 118/67 09/07/20 07:00 Pulse Ox 89 L 09/07/20 08:34 Intake & Output 09/06/20 09/07/20 09/07/20 18:59 06:59 18:59 Intake Total 125 240 Output Total 750 250 Balance -625 -10 Weight 49.895 kg Intake: Oral 125 240 Output: Urine 750 250 Stool 0 Other: Voiding Method Indwelling Catheter Indwelling Catheter # Voids 1 # Bowel Movements 0 - Exam Gen: This is a 80-year-old female lethargic although more easily arousable today maintained on 15 L high flow and partial rebreather and tolerating and will continue to wean FiO2 as tolerated HEENT: Head is atraumatic, normocephalic. Pupils equal, round. Sclerae is anicteric. NECK: Supple. No JVD. No lymphadenopathy. No thyromegaly. LUNGS: Diminished breath sounds bilaterally with some scattered rhonchi noted. No intercostal retractions. HEART: S1, S2 are muffled ABDOMEN: Soft. Bowel sounds are present. No masses. No tenderness. EXTREMITIES: No pedal edema. No calf tenderness. Left upper extremity sling noted NEUROLOGICAL: Patient is sleeping but arousable, Lethargic and diffusely weak. - Labs CBC & Chem 7: 09/02/20 07:27 09/02/20 07:27 Labs: Abnormal Lab Results - Last 24 Hours (Table) 09/07/20 09/07/20 Range/Units 05:48 05:48 D-Dimer 4.35 H (<0.60) mg/L FEU Lactate Dehydrogenase 428 H (120-246) U/L C-Reactive Protein 11.4 H (0.0-0.8) mg/dL Assessment and Plan Assessment: Acute COVID-19 infection with acute COVID-19 bacterial interstitial pneumonia with acute hypoxic respiratory failure Change in mental status, acute on chronic metabolic encephalopathy Recent suicide attempt Hypernatremia history of recent left wrist fracture Increased creatinine with possible acute kidney injury with acute tubular necrosis with dehydration Possible sepsis, present on admission with elevated plasma lactic acid as well as possible super bacterial pneumonia Elevated LDH Elevated inflammatory markers of COVID-19 Elevated d-dimer without any evidence of acute pulmonary embolism Increased white count Elevated pro calcitonin History of GERD Hypertension Hyperlipidemia history of anxiety, depression No CPR,no code, no vent Recommendations and discussion: Continue with oxygen therapy and monitor for attempts at weaning FiO2 as tolerated. Currently on 15 L high flow nasal cannula and partial rebreather. Patient desats very quickly off of oxygen and continues to complain about the nonrebreather facial mask bothering her. Suicide and aviation safety inspector at the bedside and patient denies any suicidal thoughts or homicide. Patient is being followed by psychiatry. Patient is refusing medications today and nursing staff continues to attempt. Patient is refusing IV and antibiotics have been dis continued and dexamethasone changed to oral and continue to encourage oral intake as patient is not eating. Patient is eating very minimally. Discussed with the family about treatment plan and family are leaning more towards hospice and being made comfortable and told the son Bobby that I would discuss and update him daily on her progression as they would like to wait a couple more days as she is more awake and alert today and attempt to wean FiO2 as tolerated. Son Bobby and family are absolutely against her going to a geriatric psychiatric facility. Continue with Lovenox, dexamethasone, and vitamin supplements. Pulmonary Is following. Prognosis remains extremely guarded.
--- NOTE | 2020-09-07 15:43 | P.PN ---
Subjective Progress Note Date: 09/07/20 On on 09/07/2020, the patient is being seen for a follow-up. She had 80-year-old here patient with acute hypoxic respiratory failure related to over 90 related pneumonia. She seems to much more alert and awake and communicating on today's evaluation. She is still using 15 L of oxygen by nasal cannula and she also has a partial nonrebreather facemask. Her chest x-ray was repeated today and in comparison there is some mild improvement in aeration and improvement in infiltrates seen bilaterally. The patient has a 70 the bedside. She has significant degree of depression. She has been monitored for concern of underlying suicide. She has a DNR/DNI CODE STATUS. It final change in her CODE STATUS has not been done and there was some answers on the family to switch her CODE STATUS to hospice. The patient remains on Remeron 7.5 mg for depression and insomnia and low appetite. She is also asked to take Seroquel 25 mg at bedtime. She is interactive. She is awake and she's alert. Taking some oral intake essentially this soft material including the Jell-O than the liquid and the juices. She did not take any solid material in. Hemodynamically stable. No focal neurological deficits. No significant cough or sputum production. Looks quite debilitatedLH level is at 428, CRP is at 11.4 and the d-dimer is at 4.35. Sodium level is up. It has dropped down from 153 down to 138. The p atient has no IV access as the patient yanked and pulled his IV lines that were given to her earlier. Objective - Vital Signs Vital signs: Vital Signs Temp 97.8 F 09/07/20 15:00 Pulse 84 09/07/20 15:00 Resp 16 09/07/20 15:00 BP 125/73 09/07/20 15:00 Pulse Ox 93 L 09/07/20 15:00 Intake & Output 09/06/20 09/07/20 09/07/20 18:59 06:59 18:59 Intake Total 125 240 Output Total 750 250 Balance -625 -10 Weight 49.895 kg Intake: Oral 125 240 Output: Urine 750 250 Stool 0 Other: Voiding Method Indwelling Catheter Indwelling Catheter # Voids 1 # Bowel Movements 0 - Exam GENERAL EXAM: Arousable, frail, lethargic 80-year-old female, on 15 L high flow nasal cannula, appears comfortable in no apparent distress. Patient is also on a partial nonrebreather fullface mask. She is awake. She is interactive. He i s confused. HEAD: Normocephalic. EYES: Normal reaction of pupils, equal size. NOSE: Clear with pink turbinates. THROAT: No erythema or exudates. NECK: No masses, no JVD. CHEST: No chest wall deformity. LUNGS: Equal air entry with crackles in the bilateral posterior bases. CVS: S1 and S2 normal with no audible murmur, regular rhythm. ABDOMEN: No hepatosplenomegaly, normal bowel sounds, no guarding or rigidity. SPINE: No scoliosis or deformity SKIN: No rashes CENTRAL NERVOUS SYSTEM: No focal deficits, tone is normal in all 4 extremities. EXTREMITIES: There is no peripheral edema. No clubbing, no cyanosis. Peripheral pulses are intact. - Labs CBC & Chem 7: 09/02/20 07:27 09/02/20 07:27 Labs: Abnormal Lab Results - Last 24 Hours (Table) 09/07/20 09/07/20 Range/Units 05:48 05:48 D-Dimer 4.35 H (<0.60) mg/L FEU Lactate Dehydrogenase 428 H (120-246) U/L C-Reactive Protein 11.4 H (0.0-0.8) mg/dL Assessment and Plan Plan: 1 Acute hypoxemic respiratory failure secondary to COVID-19 pneumonia. Unsure of the date the initial diagnosis. The patient remains on Decadron 6 mg by mouth daily. The patient is also on a 15 L in addition to a partial non rebreather facemask, 100%. Follow-up chest x-ray from today showed improvement in aeration bilaterally. Her breathing is nonlabored at this point in time. She does have some limited contact in lung bases bilaterally. No use of accessory muscles of breathing. She remains confused. Chest x-ray showing some limited improvement in the aeration and the patient's saturation remains stable 2 Recent admissions to both [facility] and [facility], discharged to [facility] 3 Recent fall with fracture of the left arm/wrist 4 Altered mental status, improving 5 Acute renal failure, recovered 6 Elevated inflammatory markers secondary to COVID-19 infection 7 Possible urinary tract infection, culture pending 8 Lactic acidosis, improved 9 Depression, patient safety attendant at the bedside Plan: Chest x-ray was noted from today Inflammatory markers are mildly elevated Continue Lovenox, Decadron, vitamin supplements Titrate the FiO2 as tolerated DO NOT RESUSCITATE/DO NOT INTUBATE CODE STATUS Advance diet if possible She is currently on a combination of Seroquel and Remeron Keep the sitter at the bedside one-to-one depression precautions Family may consider hospice/comfort care
[2020-09-07] MEDS: MIRTAZAPINE 15 MG TAB PO SCH ×2 (22:57→23:10)
[2020-09-07] MEDS: QUEtiapine 25 MG TAB PO SCH ×2 (22:57→23:10)
[2020-09-08] MEDS: DEXTROSE 5% IN WATER 1,000 ML IV SCH ×3 (04:08→15:11)
[2020-09-08 08:01] VITALS: BP 130/70; PULSE 69; RESP 14; TEMP 97.9
[2020-09-08] MEDS: ALBUTEROL HFA INHALER INHALATION SCH ×2 (08:28→12:11)
[2020-09-08] MEDS: ENOXAPARIN 40 MG/0.4 ML SYRINGE SQ SCH (09:07)
[2020-09-08] MEDS: FOLIC ACID 1 MG TAB PO SCH (09:14)
[2020-09-08] MEDS: traMADol 50 MG TAB PO PRN (09:14)
[2020-09-08] MEDS: ZINC SULFATE 220 MG CAP PO SCH (09:14)
[2020-09-08] MEDS: PANTOPRAZOLE 40 MG TABLET PO SCH (09:14)
[2020-09-08] MEDS: dexAMETHasone 2 MG TAB PO SCH (09:14)
[2020-09-08] MEDS: CHOLECALCIFEROL 25 MCG (1000 IU) TABLET PO SCH (09:14)
[2020-09-08] MEDS: ASCORBIC ACID 500 MG TAB PO SCH (09:14)
[2020-09-08] MEDS: CYANOCOBALAMIN 500 MCG TAB PO SCH (09:15)
--- NOTE | 2020-09-08 11:19 | P.PN ---
Subjective Progress Note Date: 09/08/20 This is a 80-year-old female patient who recently had two hospitalizations initially at [facility] and was positive for CoVID 19 08/19/2020. She is subsequently discharged home and sustained a fall and was taken to [facility]. She did have a left wrist fracture. She subsequently was discharged from there to [facility] for rehabilitation. She was brought in here to the emergency room yesterday with altered mental status and hypoxemia with oxygen saturations in the 70s. is a very poor historian no information is able to be obtained from her. CT angiogram revealed no evidence of pulmonary embolism. There is extensive pulmonary interstitial infiltrates consider with pneumonia, pulmonary fibrosis. She does have a history of being a heavy smoker and prior to her initial hospitalization at [facility] she was alert and oriented 3 according to family members per nursing staff. Today's chest x- ray shows bilateral airspace disease. Urine culture pending. White count 11.1. Hemoglobin 12.8. D-dimer 1.43. Sodium 148. Potassium 4.7. Creatinine 1.38. Initial lactic acid 3.1 and currently 1.4. Ferritin 82. LDH 1145. C-reactive protein 6.4. Pro-calcitonin 0.20. Jones virus by PCR detected. She was initially requiring nonrebreather mask but maintaining O2 saturations in the 90s. She's currently on 4 L with O2 saturation of 99%. She is resting in bed. She is unable to answer any questions. She is arousable but drowsy and her speech is garbled. She's been initiated on Zosyn and azithromycin. Lovenox for DVT prophylaxis. Decadron and vitamin supplements. Current fluids at 20 ML's per hour. On 08/30/2020 patient seen in follow-up on medical surgical floor, she is resting comfortably in bed, she is currently on partial rebreather mask appears to be breathing comfortable, her pulse ox is 96-97% and I will be further weaned down, she is afebrile, hemodynamically she stable, no complaints of chest discomfort, is being assisted with her meal, and she is asking for chocolate ice cream. Today's chest x-ray showing bilateral airspace disease. Patient remains on azithromycin, dexamethasone 6 mg daily, she is on D5 and water at a rate of 100 ML per hour, and prophylactic dose Lovenox. In addition patient is on Zosyn for for possibility of pneumonia. Today's labs have been reviewed, white blood cell count is 16.7, hemoglobin is 14.3, sodium is up to 153, potassium is 4.9, chloride is 127, CO2 is 15, BUN is 41, creatinine is 1.42, AST has increased slightly and is up at 44, ALT is 49, alk phos is within normal limits, 2 sets of pro-calcitonin levels were negative at 0.20 and 0.18, urinalysis showed turbid urine with trace protein, trace blood, but no definite sign of urinary tract infection, and her COVID-19 PCR was still positive Progress note dated 08/31/2020. The patient is again seen in room 619. Currently, she is on a partial rebreather mask. She appears relatively comfortable. The patient is a no code. She's not receiving any IV fluids at this time. Lab data from today includes a white count of 14.61, hemoglobin 12.3, hematocrit 39.3, and a platelet count of 310,000. D-dimer is 3.11. Sodium 148, potassium 4.5, chlorides 118, CO2 20, anion gap 10, BUN 32, creatinine 1.2. Her LDH is 478, C-reactive protein is 3.1. Chest x-ray from yesterday shows bilateral airspace disease, which could be consistent with coronavirus pneumonia, and/or heart failure. The patient is seen today 09/01/2020 follow-up on the regular medical floor. She is currently resting fairly comfortably in bed. She is requiring FiO2 via nonrebreather mask. She's afebrile. Hemodynamically stable. Blood culture reveals no growth. Urine culture reveals no growth. Sodium 142. Potassium 4.4. Creatinine 1.0. Continued on dexamethasone, Lovenox, vitamin supplements. The patient is seen today 09/02/2020 in follow-up on the regular medical floor. Currently resting in bed. She is maintaining O2 saturation mid 90s on a partial rebreather mask. She's afebrile. Arousable. Blood and urine cultures reveal no growth. White count 12.3. Hemoglobin 12.0. She remains on Lovenox, dexamethasone, vitamin supplements. Chest x-ray continues to show bilateral airspace disease. No pneumothorax. No pleural effusion. The patient was seen today 09/04/2020 in follow-up on the regular medical floor. She is currently resting quite comfortably in bed. Denies any worsening shortness of breath. He is wearing a partial rebreather mask with O2 saturations in the 90s. She's been afebrile. Hemodynamically stable. No new labs today. She remains on Lovenox, Decadron, vitamin supplements. behavioral sciences instructor at the bedside. The patient is seen today 09/05/2020 in follow-up on the regular medical floor. She is arousable but drifts off easily. She has been refusing to eat. Refusing IV restarts. She is still on 15 L high flow nasal cannula to maintain O2 saturations in the 90s. Blood and urine cultures reveal no growth. No new labs today. On on 09/07/2020, the patient is being seen for a follow-up. She had 80-year-old here patient with acute hypoxic respiratory failure related to over 90 related pneumonia. She seems to much more alert and awake and communicating on today's evaluation. She is still using 15 L of oxygen by nasal cannula and she also has a partial nonrebreather facemask. Her chest x-ray was repeated today and in comparison there is some mild improvement in aeration and improvement in infiltrates seen bilaterally. The patient has a 70 the bedside. She has significant degree of depression. She has been monitored for concern of underlying suicide. She has a DNR/DNI CODE STATUS. It final change in her CODE STATUS has not been done and there was some answers on the family to switch her CODE STATUS to hospice. The patient remains on Remeron 7.5 mg for depression and insomnia and low appetite. She is also asked to take Seroquel 25 mg at bedtime. She is interactive. She is awake and she's alert. Taking some oral intake essentially this soft material including the Jell-O than the liquid and the juices. She did not take any solid material in. Hemodynamically stable. No focal neurological deficits. No significant cough or sputum production. Looks quite debilitatedLH level is at 428, CRP is at 11.4 and the d-dimer is at 4.35. Sodium level is up. It has dropped down from 153 down to 138. The patient has no IV access as the patient yanked and pulled his IV lines that were given to her earlier. The patient is seen today 09/08/2020 follow-up on the regular medical floor. She is currently resting fairly comfortably in bed. Arousable. She has been refusing to eat or drink anything. She's been refusing her medications. Spitting her pills back out. Hallucinating at times. She is still requiring 15 L high flow nasal cannula plus a partial nonrebreather facemask. behavioral sciences instructor remains at the bedside. No new labs today. Family is considering hospice care. Objective - Vital Signs Vital signs: Vital Signs Temp 97.9 F 09/08/20 07:00 Pulse 69 09/08/20 07:00 Resp 14 09/08/20 07:00 BP 130/70 09/08/20 07:00 Pulse Ox 96 09/08/20 07:00 Intake & Output 09/07/20 09/08/20 09/08/20 18:59 06:59 18:59 Intake Total 100 Output Total 475 100 Balance -475 0 Weight 49.895 kg Intake: Oral 100 Output: Urine 475 100 Stool 0 Other: Voiding Method Indwelling Catheter Indwelling Catheter # Bowel Movements 0 - Exam GENERAL EXAM: Arousable, frail, lethargic 80-year-old female, on 15 L high flow nasal cannula plus a partial nonrebreather, appears comfortable in no apparent distress. HEAD: Normocephalic. EYES: Normal reaction of pupils, equal size. NOSE: Clear with pink turbinates. THROAT: No erythema or exudates. NECK: No masses, no JVD. CHEST: No chest wall deformity. LUNGS: Equal air entry with crackles in the bilateral posterior bases. CVS: S1 and S2 normal with no audible murmur, regular rhythm. ABDOMEN: No hepatosplenomegaly, normal bowel sounds, no guarding or rigidity. SPINE: No scoliosis or deformity SKIN: No rashes CENTRAL NERVOUS SYSTEM: No focal deficits, tone is normal in all 4 extremities. EXTREMITIES: There is no peripheral edema. No clubbing, no cyanosis. Peripheral pulses are intact. - Labs CBC & Chem 7: 09/02/20 07:27 09/02/20 07:27 Labs: Abnormal Lab Results - Last 24 Hours (Table) 09/07/20 Range/Units 05:48 Lactate Dehydrogenase 428 H (120-246) U/L C-Reactive Protein 11.4 H (0.0-0.8) mg/dL Assessment and Plan Assessment: 1 Acute hypoxemic respiratory failure secondary to COVID-19 pneumonia. Unsure o f the date the initial diagnosis. 2 Recent admissions to both [facility] and [facility], discharged to [facility] 3 Recent fall with fracture of the left arm/wrist 4 Altered mental status 5 Acute renal failure 6 Elevated inflammatory markers secondary to COVID-19 infection 7 Possible urinary tract infection, culture pending 8 Lactic acidosis, improved 9 Depression, product safety compliance leader at the bedside Plan: The patient was seen and evaluated by Dr. Prince Continue the current treatment plan Titrate the FiO2 as tolerated DO NOT RESUSCITATE/DO NOT INTUBATE CODE STATUS Prognosis remain guarded Family may consider hospice/comfort care
--- NOTE | 2020-09-08 13:06 | P.PN ---
Progress Note - Text Progress Note Date: 09/08/20 Interval History: Patient was seen resting in bed comfortably and was directable and agreeable to speak with the telegraphic typewriter repairer in her room. The patient continues to report a desire to hurt herself. She has otherwise is not reporting any homicidal ideation, intention, and/or plan. She reports no suicidal plan. She is been intermittently adherent with her medications. As per discussion with the patient and her sitter, the patient tends to be concerned primarily with pain that she is experiencing. She endorses a very low appetite. Patient states that she is open to trying the Remeron if it will help her with nausea and sleep. She was encouraged to take her medications and is agreeable at this time. Mental Status Exam: General Appearance: Patient appears to be stated age is alert, directable, and cooperative. Fair hygiene and grooming. Good eye contact. Currently wearing her nonrebreather. Behavior: Patient is calmly seated without any agitated behavior. Psychomotor activity appears normal. Eye contact is appropriate. Speech: Patient's speech is fluent and nonpressured. Her low in volume, nonspontaneous, but otherwise with normal tone. Mood/Affect: Mood is improving mildly, affect is congruent and constricted. Suicidality/Homicidality: Patient continues to endorse suicidal ideation. She reports no homicidal ideation, intention, and/or plan. Perceptions: Patient denies any visual hallucinations and denies any auditory hallucinations Though content/process: There is no evidence of any delusional thought content and thought process is linear and goal-directed. Memory and concentration: AAO to self only. Believes it is March and that she is in [facility]. Judgment and insight: Fair Assessment Major depressive disorder, recurrent, severe, with suicidal ideation Anxiety disorder, unspecified Acute hypoxemic aspiratory failure secondary to COVID-19 pneumonia Acute renal failure, resolving Lactic acidosis PLAN: -At this time patient DOES meet criteria for inpatient geriatric psychiatric admission. It will be difficult to find placement for geriatric psychiatry given her COVID status. Palliative or Hospice care are suitable alternatives due to the severity of her medical condition. -Delirium precautions recommended with patient including - avoiding use of narcotics and W[employer]ER sedatives, limit anticholinergic medications when possible, frequent re-orientation, minimize use of restraints, open window shades during the day and close them at night -Would recommend the following medication changes/additions: Continue Remeron 7.5 mg by mouth at bedtime for depression/insomnia/low appetite. Continue Seroquel 25 mg by mouth at bedtime for mood stabilization/insomnia. Patient does not appear to display any significant agitation at this time. -Continue 1:1 sitter for safety. Patient continues to endorse a desire to hurt herself. -Cannot leave AMA at this time. Patient will need a petition and certification if attempting to leave AMA. -Will continue to follow along
--- NOTE | 2020-09-08 14:36 | P.PN ---
Subjective Progress Note Date: 09/08/20 This is an 80-year-old female who was recently admitted acute COVID-19 infection as well as COVID-19 pneumonia and is being closely monitored. Patient continues to be hypoxic requiring 15 L high flow. Pulmonary is following. Patient is maintained on Lovenox along with vitamin C and D and zinc supplements and will continue. Patient to continue with bronchodilators as well. Patient is on dexamethasone as well and will continue. Orthopedic surgery following continuing with conservative management of the left wrist she has not a surgical candidate at this time given current situation an acute COVID-19 infection. White blood count today is 14.61, hemoglobin is 12.3, d-dimer is 3.11 Jamie sodium is 148, potassium is 4.5, creatinine slightly improved at 1.2. Patient is on D5 with water and will repeat a.m. labs. 09/01/2020 Patient is seen in follow-up this morning more alert although continues to be lethargic and maintained on 15 L via nonrebreather. Pulmonary following. Patient is maintained on vitamin and zinc supplements along with Lovenox and dexamethasone and will continue. Urine and blood cultures remain negative. Sodium today is 142, potassium is 4.4 and current creatinine is 1.0. Left wrist casting and no swelling noted. 09/02/2020 Patient is seen this morning continues to be maintained on 15 L nonrebreather and per nursing staff is keeping her nonrebreather mask on today but needs redirection as she continues to take it off. Patient continues to be on vitamin and zinc supplements along with Lovenox and dexamethasone. Chest x-ray today shows continued bilateral airspace disease consistent with Covid pneumonia. Pulmonary is following. Had a lengthy discussion with her son Bobby and updated on treatment plan. Continue to monitor and wean FiO2 as tolerated. Patient denies any chest pain or shortness of breath. Patient is not eating very well and needs encouragement with meals. 09/03/2020 Patient is seen this morning and weaning FiO2 as tolerated and currently maintained on 10 L high flow via nasal cannula and maintaining oxygen saturations above 90%. Patient is afebrile and eating minimally although is eating per nursing staff. A continues to need encouragement with this. Pulmonary also following. Empiric antibiotics in the form of IV Zosyn added due to worsening of the chest x-ray. Patient denies any chest pain or palpitations. Will continue with IV fluids as patient is not eating very much and continue to monitor closely. 09/04/2020 Patient is seen and evaluated in follow-up on the regular medical floor. She is currently resting quite comfortably in bed. Denies any worsening shortness of breath. He is wearing a partial rebreather mask with O2 saturations in the 90s. She's been afebrile. Hemodynamically stable. No new labs today. She remains on Lovenox, Decadron, vitamin supplements. guitar teacher at the bedside. 09/06/2020 Patient is seen in follow-up this morning currently maintained on nasal cannula along with nonrebreather at 15 L and maintaining oxygen saturations of 99% and discussed with nursing staff about weaning FiO2. Patient states she is not suicidal and does not want to hurt herself and states "keep me here please want to be safe". Patient had an episode of suicide attempt on Sunday by wrapping her Zhao wraps and oxygen tubing around her neck making multiple statements of wanting to in a suicide sitter was placed. Consulted psychiatry for further evaluation and recommend continue airworthiness safety inspector at the bedside. Had a lengthy discussion with son Bobby again about this event and treatments and will touch base with him tomorrow to let him know what psychiatry has said. I believe ps ychiatry notified and discussed the case with Bobby already. Patient has no IV and will switch dexamethasone to oral and will continue to encourage oral fluids and food and monitor closely. Patient remains a no code with the possibility of hospice status continues to deteriorate. This was discussed in detail with all of the family members per her son Bobby. 09/07/2020 Patient is seen in follow-up much more alert and awake having conversation with staff members and is being followed by psychiatry with a sitter at the bedside for suicide precautions. Patient continues on 15 L partial rebreather along with nasal cannula in the low 90s and discussed with nursing staff about weaning as tolerated. Chest x-ray shows continues to show patchy infiltrates with mild improvement in aeration. Patient is refusing medication today and still continues with no IV and family is aware of this. Nursing staff attempting medications as she will allow it. Patient denies any suicidal thoughts of wanting to harm herself or others. 09/08/2020 Patient is seen in follow-up this morning and apparently per nursing staff at night the sitter at the bedside had to stop the patient from wrapping the oxygen tubing around her neck again. Psychiatry is following recommending inpatient psychiatric geriatric unit if patient stabilizes. Patient is refusing to eat had one bite of food today and is refusing all medication and has been spitting them out. Patient continues to require nonrebreather along with nasal cannula 15 L and desats very quickly off of oxygen. Discussed in detail with family and they would like to proceed with hospice and comfort measures. [facility] hospice consult referral placed and family will be coming today to meet with them. Review of systems: Constitutional: fatigue, no reports of fever, or chills, having hallucinations per sitter at the bedside, on suicide precautions Cardiovascular: No reports of chest pain or palpitations Respiratory: No reports of shortness of breath or cough GI: No reports of nausea, vomiting, or diarrhea : No reports of dysuria or retention Neurovascular: reports weakness All medications have been reviewed Objective - Vital Signs Vital signs: Vital Signs Temp 97.9 F 09/08/20 07:00 Pulse 69 09/08/20 07:00 Resp 14 09/08/20 07:00 BP 130/70 09/08/20 07:00 Pulse Ox 96 09/08/20 07:00 Intake & Output 09/07/20 09/08/20 09/08/20 18:59 06:59 18:59 Intake Total 100 Output Total 475 100 Balance -475 0 Weight 49.895 kg Intake: Oral 100 Output: Urine 475 100 Stool 0 Other: Voiding Method Indwelling Catheter Indwelling Catheter # Bowel Movements 0 - Exam Gen: This is a 80-year-old female lethargic today maintained on 15 L high flow and nonrebreather HEENT: Head is atraumatic, normocephalic. Pupils equal, round. Sclerae is anicteric. NECK: Supple. No JVD. No lymphadenopathy. No thyromegaly. LUNGS: Diminished breath sounds bilaterally with some scattered rhonchi noted. No intercostal retractions. HEART: S1, S2 are muffled ABDOMEN: Soft. Bowel sounds are present. No masses. No tenderness. EXTREMITIES: No pedal edema. No calf tenderness. Left upper extremity sling noted NEUROLOGICAL: Patient is sleeping but arousable, Lethargic and diffusely weak. - Labs CBC & Chem 7: 09/02/20 07:27 09/02/20 07:27 Assessment and Plan Assessment: Acute COVID-19 infection with acute COVID-19 bacterial interstitial pneumonia with acute hypoxic respiratory failure Change in mental status, acute on chronic metabolic encephalopathy Recent suicide attempt x2 Hypernatremia history of recent left wrist fracture Increased creatinine with possible acute kidney injury with acute tubular necrosis with dehydration Possible sepsis, present on admission with elevated plasma lactic acid as well as possible super bacterial pneumonia Elevated LDH Elevated inflammatory markers of COVID-19 Elevated d-dimer without any evidence of acute pulmonary embolism Increased white count Elevated pro calcitonin History of GERD Hypertension Hyperlipidemia history of anxiety, depression No CPR,no code, no vent Recommendations and discussion: Continue with oxygen therapy and monitor for attempts at weaning FiO2 as tolerated. Currently on 15 L high flow nasal cannula and non-rebreather. Patient desats very quickly off of oxygen. Currently per nursing staff and the sitter at the bedside patient attempted to wrap the oxygen tubing around her neck again last night. Suicide and airworthiness safety inspector at the bedside. Patient is being followed by psychiatry. Patient is refusing medications today and nursing staff continues to attempt. Patient continues to use IV access and is refusing medications and has not been eating today. Patient ate a few bites of yogurt this morning. Discussed with Bobby in detail today and they would like to proceed with hospice in [facility] hospice referral was placed. Prognosis remains extremely poor and guarded. Patient will likely be made inpatient hospice today comfort measures.
--- NOTE | 2020-09-08 16:20 | P.DS ---
Providers Date of admission: 08/28/20 14:49 Expected date of discharge: 09/08/20 Attending physician: Tess Morataya Consults: 08/28/20 13:50 Consult Physician Stat Consulting Provider: Maixmiliano Miles Consult Reason/Comments: left wrist fracture Do you want consulting provider notified?: Yes 08/28/20 14:49 Consult Physician Routine Consulting Provider: Rachel Sapp Consult Reason/Comments: dyspnea Do you want consulting provider notified?: Yes 09/06/20 12:45 Consult Physician Urgent Consulting Provider: Casimiro Plummer Consult Reason/Comments: Suicide ideation and attempt/ Covid Do you want consulting provider notified?: Yes Primary care physician: [facility] Course: Final diagnosis Acute COVID-19 infection with acute COVID-19 bacterial interstitial pneumonia with acute hypoxic respiratory failure Change in mental status, acute on chronic metabolic encephalopathy Recent suicide attempt x2 Hypernatremia history of recent left wrist fracture Increased creatinine with possible acute kidney injury with acute tubular necrosis with dehydration Possible sepsis, present on admission with elevated plasma lactic acid as well as possible super bacterial pneumonia Elevated LDH Elevated inflammatory markers of COVID-19 Elevated d-dimer without any evidence of acute pulmonary embolism Increased white count Elevated pro calcitonin History of GERD Hypertension Hyperlipidemia history of anxiety, depression No CPR,no code, no vent Discharge disposition Patient is being discharged to hospice and being made inpatient and [facility] hospice following. Please refer to previous dictations for further HPI. Patient Condition at Discharge: Poor Plan - Discharge Summary New Discharge Prescriptions: No Action Pantoprazole Sodium [Protonix] 40 mg PO DAILY Folic Acid 1 mg PO DAILY Cyanocobalamin (Vitamin B-12) [Vitamin B-12] 1,000 mcg PO DAILY QUEtiapine FUMARATE 25 mg PO HS Doxycycline Hyclate [Vibramycin] 100 mg PO BID dexAMETHasone [Dexamethasone] 6 mg PO DAILY traMADol HCL 50 mg PO Q8H PRN PRN Reason: Pain Discharge Medication List Cyanocobalamin (Vitamin B-12) [Vitamin B-12] 1,000 mcg PO DAILY 08/28/20 [History] Doxycycline Hyclate [Vibramycin] 100 mg PO BID 08/28/20 [History] Folic Acid 1 mg PO DAILY 08/28/20 [History] Pantoprazole Sodium [Protonix] 40 mg PO DAILY 08/28/20 [History] QUEtiapine FUMARATE 25 mg PO HS 08/28/20 [History] dexAMETHasone [Dexamethasone] 6 mg PO DAILY 08/28/20 [History] traMADol HCL 50 mg PO Q8H PRN 08/28/20 [History] Follow up Appointment(s)/Referral(s): Lake Delgado MD [Primary Care Provider] - 1-2 days
== END 2020-09-08 16:26 | disposition hospice, inpatient (51) | DRG 871 ==
LOC: EC 12:20 → 6NMEDSUR 14:49
PROVIDERS: ADMIT Hospitalist; ATTEND Hospitalist
DX: A41.89 Other specified sepsis (principal); U07.1 COVID-19; J12.82 Pneumonia due to coronavirus disease 2019; J96.01 Acute respiratory failure with hypoxia; J15.9 Unspecified bacterial pneumonia; G93.41 Metabolic encephalopathy; N17.0 Acute kidney failure with tubular necrosis; E87.0 Hyperosmolality and hypernatremia; E87.2 Acidosis; F33.2 Major depressive disorder, recurrent severe without psychotic features; S62.102K Fracture of unspecified carpal bone, left wrist, subsequent encounter for fracture with nonunion; N39.0 Urinary tract infection, site not specified; K21.9 Gastro-esophageal reflux disease without esophagitis; E78.5 Hyperlipidemia, unspecified; E86.0 Dehydration; F03.90 Unspecified dementia, unspecified severity, without behavioral disturbance, psychotic disturbance, mood disturbance, and anxiety; F41.9 Anxiety disorder, unspecified; G47.00 Insomnia, unspecified; R65.20 Severe sepsis without septic shock; Z53.20 Procedure and treatment not carried out because of patient's decision for unspecified reasons; Z66 Do not resuscitate; Z51.5 Encounter for palliative care; W19.XXXD Unspecified fall, subsequent encounter; Z91.81 History of falling; R29.6 Repeated falls; T14.91XA Suicide attempt, initial encounter; X83.8XXA Intentional self-harm by other specified means, initial encounter; Y92.230 Patient room in hospital as the place of occurrence of the external cause; I10 Essential (primary) hypertension; Z79.899 Other long term (current) drug therapy; Z87.891 Personal history of nicotine dependence; Z63.4 Disappearance and death of family member; Z88.5 Allergy status to narcotic agent; Z88.8 Allergy status to other drugs, medicaments and biological substances
CPT/HCPCS: 36415; 71045; 71275; 80048; 80053; 81001; 82728; 83605; 83615; 83735; 84145; 85025; 85379; 85610; 85730; 86140; 87040; 87086; 87635; 93005; 94640; 94760; 99291

== ENCOUNTER 2020-09-08 15:53 | Inpatient (IN) | payer MEDICAID ==
[2020-09-08] MEDS ORDERED: MORPHINE SULFATE 2 MG/ML SYRINGE IV PRN (15:56)
[2020-09-08] MEDS ORDERED: ACETAMINOPHEN SUPPOSITORY 650 MG SUPP RECTAL PRN (15:56)
[2020-09-08] MEDS ORDERED: LORazepam 0.5 MG TAB PO PRN (15:56)
[2020-09-08] MEDS ORDERED: ONDANSETRON 4 MG/2 ML VIAL IVP PRN (15:56)
[2020-09-08] MEDS ORDERED: ATROPINE OPHTH SOLN 1% 5ML BTL SUBLINGUAL PRN (15:56)
[2020-09-08] MEDS ORDERED: GLYCOPYRROLATE 0.2 MG/ML 2 ML VIAL IVP PRN (15:56)
[2020-09-08] MEDS ORDERED: HALOPERIDOL LACTATE 5 MG/ML 1 ML VIAL IM PRN (15:56)
[2020-09-08] MEDS ORDERED: SCOPOLAMINE 1.5MG/72HR PATCH TRANSDERM SCH (16:00)
[2020-09-08] MEDS: MORPHINE CONC SOLN 10mg/0.5mL ORAL SYRG SL PRN ×2 (17:24→20:53)
[2020-09-09] MEDS: MORPHINE CONC SOLN 10mg/0.5mL ORAL SYRG SL PRN (09:38)
[2020-09-09] MEDS: MORPHINE SULFATE (100 MG/2 ML) 100 MG in SODIUM CHLORIDE 0.9% 100 ML IV SCH ×2 (10:22→19:35)
--- NOTE | 2020-09-09 14:06 | P.HPIM ---
History of Present Illness H&P Date: 09/09/20 This is an 80-year-old female who was recently admitted with acute COVID-19 infection as well as COVID-19 pneumonia and is being closely monitored. Patient has had prolonged hospitalization and continues to be on 15 L high flow along with nonrebreather and desats very quickly when taken off of oxygen. Patient has been hospitalized almost 2 weeks and showing no improvement and family has been following closely and opted for hospice with comfort care measures. [facility] met with the family and our signing on and will continue with inpatient comfort care measures. Review of Systems Constitutional: Reports fatigue, Reports lethargy, Reports poor appetite Eyes: denies as per HPI Ears: deny: decreased hearing Ears, nose, mouth and throat: Denies headache, Denies sore throat Cardiovascular: Reports decreased exercise tolerance, Reports dyspnea on exertion, Reports shortness of breath Respiratory: Reports cough, Reports dyspnea, Reports pain Gastrointestinal: Denies abdominal pain, Denies diarrhea, Denies nausea, Denies vomiting Genitourinary: Denies dysuria, Denies hematuria Musculoskeletal: Reports fractures (Left wrist), Reports frequent falls, Reports gait dysfunction, Reports limitation of motion, Reports muscle weakness, Reports myalgias Integumentary: Denies pruritus, Denies rash Neurological: Reports change in mentation, Reports confusion, Reports gait dysfunction, Reports weakness Psychiatric: Reports confusion, Reports depression, Reports hallucinations, Reports irritability, Reports sadness/tearfulness, Reports sleep disturbances, Reports suicidal ideation Endocrine: Reports fatigue, Denies weight change Past Medical History Past Medical History: Unable to Obtain, GERD/Reflux, Hyperlipidemia, Hypertension, Respiratory Disorder Additional Past Medical History / Comment(s): Left wrist Fx, Covid positive, History of Any Multi-Drug Resistant Organisms: Unobtainable Past Surgical History: Unable to Obtain Past Psychological History: Anxiety, Depression Smoking Status: Unknown if ever smoked Past Alcohol Use History: Unable to Obtain Past Drug Use History: Unable to Obtain Medications and Allergies Home Medications Medication Instructions Recorded Confirmed Type Cyanocobalamin (Vitamin B-12) 1,000 mcg PO DAILY 08/28/20 09/08/20 History [Vitamin B-12] Doxycycline Hyclate [Vibramycin] 100 mg PO BID 08/28/20 09/08/20 History Folic Acid 1 mg PO DAILY 08/28/20 09/08/20 History Pantoprazole Sodium [Protonix] 40 mg PO DAILY 08/28/20 09/08/20 History QUEtiapine FUMARATE 25 mg PO HS 08/28/20 09/08/20 History dexAMETHasone [Dexamethasone] 6 mg PO DAILY 08/28/20 09/08/20 History traMADol HCL 50 mg PO Q8H PRN 08/28/20 09/08/20 History Allergies Allergy/AdvReac Type Severity Reaction Status Date / Time clopidogrel [From Plavix] Allergy Unknown Verified 08/28/20 15:53 hydrocodone Allergy Unknown Verified 08/28/20 15:53 Physical Exam Vitals: Vital Signs Temp Pulse Resp BP Pulse Ox 09/09/20 07:00 97.5 F L 73 16 117/77 97 09/09/20 02:00 96.8 F L 53 L 14 107/63 98 09/08/20 20:00 91 19 114/77 97 Intake and Output 09/08/20 09/09/20 09/09/20 22:59 06:59 14:59 Intake Total 100 Output Total 750 250 Balance -650 -250 Intake: Oral 100 Output: Urine 750 250 Other: Voiding Method Indwelling Catheter Indwelling Catheter # Voids 1 Weight 49.9 kg Gen: This is a 80-year-old female lethargic today maintained on 15 L high flow and nonrebreather working on comfort measures and being made comfortable with hospice and then will titrate to nasal cannula only HEENT: Head is atraumatic, normocephalic. Pupils equal, round. Sclerae is anicteric. Pale NECK: Supple. No JVD. No lymphadenopathy. No thyromegaly. LUNGS: Diminished breath sounds bilaterally with some scattered rhonchi noted. No intercostal retractions. HEART: S1, S2 are muffled ABDOMEN: Soft. Bowel sounds are present. No masses. No tenderness. EXTREMITIES: No pedal edema. No calf tenderness. Left upper extremity sling noted NEUROLOGICAL: Patient is sleeping but arousable, Lethargic and diffusely weak. Assessment and Plan Assessment: Acute COVID-19 infection with acute COVID-19 bacterial interstitial pneumonia with acute hypoxic respiratory failure Change in mental status, acute on chronic metabolic encephalopathy Recent suicide attempt x2 Hypernatremia history of recent left wrist fracture Increased creatinine with possible acute kidney injury with acute tubular necrosis with dehydration Possible sepsis, present on admission with elevated plasma lactic acid as well as possible super bacterial pneumonia Elevated LDH Elevated inflammatory markers of COVID-19 Elevated d-dimer without any evidence of acute pulmonary embolism Increased white count Elevated pro calcitonin History of GERD Hypertension Hyperlipidemia history of anxiety, depression No CPR,no code, no vent Plan: Patient is being transitioned to inpatient hospice with comfort measures only. Family at the bedside along with [facility] hospice nurse and carrying out comfort measures only. We will continue to monitor. Prognosis remains poor and omar kelly
[2020-09-09 14:35] VITALS: BP 96/64; TEMP 97.2
[2020-09-10] MEDS: MORPHINE SULFATE (100 MG/2 ML) 100 MG in SODIUM CHLORIDE 0.9% 100 ML IV SCH ×2 (05:06→08:14)
[2020-09-10 06:08] VITALS: PULSE 113; RESP 15
--- NOTE | 2020-09-10 11:39 | P.DS ---
Providers Date of admission: 09/08/20 17:07 Expected date of discharge: 09/10/20 Attending physician: Tess Morataya Primary care physician: Tess Morataya Hospital Course: Final diagnosis Acute COVID-19 infection with acute COVID-19 bilateral interstitial pneumonia with acute hypoxic respiratory failure Change in mental status, acute on chronic metabolic encephalopathy Recent suicide attempt x2 Hypernatremia history of recent left wrist fracture Increased creatinine with possible acute kidney injury with acute tubular necrosis with dehydration Possible sepsis, present on admission with elevated plasma lactic acid as well as possible super bacterial pneumonia Elevated LDH Elevated inflammatory markers of COVID-19 Elevated d-dimer without any evidence of acute pulmonary embolism Increased white count Elevated pro calcitonin History of GERD Hypertension Hyperlipidemia history of anxiety, depression No CPR,no code, no vent Discharge disposition Patient has and per nursing documentation time of was 1049 on 09/10/2020. Please refer to nursing documentation for time of . Preliminary cause of Acute COVID-19 pneumonia Hospital course Patient is an 80-year-old female who was diagnosed with COVID-19 and has had multiple hospitalizations at previous hospitals and was staying at an [facility] and was brought here for increasing shortness of breath. She was being closely monitored and respiratory status continued to deteriorate requiring high flow nonrebreather. Patient also had some acute episodes of suicidal attempts and was being closely monitored by psychiatry along with patient sitter for safety and suicide precautions. Lengthy discussion with family was had multiple occasions and with no improvement in respiratory status they have opted for hospice with comfort care measures only. [facility] hosp[facility] following and patient was made comfort yesterday. She has . Please refer to previous dictations for further HPI. Patient Condition at Discharge: Poor Plan - Discharge Summary New Discharge Prescriptions: No Action Pantoprazole Sodium [Protonix] 40 mg PO DAILY Folic Acid 1 mg PO DAILY Cyanocobalamin (Vitamin B-12) [Vitamin B-12] 1,000 mcg PO DAILY QUEtiapine FUMARATE 25 mg PO HS Doxycycline Hyclate [Vibramycin] 100 mg PO BID dexAMETHasone [Dexamethasone] 6 mg PO DAILY traMADol HCL 50 mg PO Q8H PRN PRN Reason: Pain Discharge Medication List Cyanocobalamin (Vitamin B-12) [Vitamin B-12] 1,000 mcg PO DAILY 08/28/20 [History] Doxycycline Hyclate [Vibramycin] 100 mg PO BID 08/28/20 [History] Folic Acid 1 mg PO DAILY 08/28/20 [History] Pantoprazole Sodium [Protonix] 40 mg PO DAILY 08/28/20 [History] QUEtiapine FUMARATE 25 mg PO HS 08/28/20 [History] dexAMETHasone [Dexamethasone] 6 mg PO DAILY 08/28/20 [History] traMADol HCL 50 mg PO Q8H PRN 08/28/20 [History] Discharge Disposition: - Preliminary Cause of Preliminary Cause of : Acute COVID-19 pneumonia
== END 2020-09-10 13:15 | disposition expired | DRG 951 ==
LOC: 6NMEDSUR 17:07
PROVIDERS: ADMIT Hospitalist; ATTEND Hospitalist
PROC: 5A0935A Assistance with Respiratory Ventilation, Less than 24 Consecutive Hours, High Flow/Velocity Cannula (ICD-10-PCS; principal; 2020-09-08)
DX: Z51.5 Encounter for palliative care (principal); J12.82 Pneumonia due to coronavirus disease 2019; J96.01 Acute respiratory failure with hypoxia; N17.0 Acute kidney failure with tubular necrosis; A41.9 Sepsis, unspecified organism; U07.1 COVID-19; G93.41 Metabolic encephalopathy; J15.9 Unspecified bacterial pneumonia; E87.0 Hyperosmolality and hypernatremia; E86.0 Dehydration; Z66 Do not resuscitate; E78.5 Hyperlipidemia, unspecified; I10 Essential (primary) hypertension; K21.9 Gastro-esophageal reflux disease without esophagitis; F32.9 Major depressive disorder, single episode, unspecified; F41.9 Anxiety disorder, unspecified; Z79.899 Other long term (current) drug therapy; Z87.81 Personal history of (healed) traumatic fracture; Z91.5 Personal history of self-harm; Z88.5 Allergy status to narcotic agent; Z88.8 Allergy status to other drugs, medicaments and biological substances